=== PATIENT | female | born 1955 | race Caucasian/White ===

== ENCOUNTER 2016-07-08 13:39 | Emergency (ER) | payer SELFPAY ==
[2016-07-08] MEDS ORDERED: PROMETHAZINE HCL INJ 25 MG/ML VIAL ONE (15:05)
[2016-07-08] MEDS ORDERED: SODIUM CHL 0.9% 50ML MIN-BAG+ 50 ML IVPB ONE (15:06)
[2016-07-08] MEDS ORDERED: SUCRALFATE 1 GM/10 ML 1 GM UD ONE (15:11)
[2016-07-08] MEDS ORDERED: OCTREOTIDE ACETATE 100 MCG/ML VIAL ONE (15:36)
[2016-07-08] MEDS ORDERED: OCTREOTIDE ACETATE 100 MCG/ML VIAL IVPB ONE ×2 (15:36)
[2016-07-08] MEDS ORDERED: SODIUM CHLORIDE 0.9% 50ML 50 ML ONE (15:42)
[2016-07-08] MEDS ORDERED: SODIUM CHLORIDE 0.9% 100ML 100 ML IVPB ONE (16:12)
[2016-07-08] MEDS ORDERED: MORPHINE SULFATE INJ 10 MG/ML VIAL ONE (16:27)
[2016-07-09 10:18] VITALS: BP 108/71; TEMP 99.3; O2SAT 98
--- NOTE | 2016-07-12 01:41 | ED.PDOC ---
History of Present Illness - General Chief Complaint: GI Problem Stated Complaint: possible bleeding ulcer Source: patient Exam Limitations: no limitations - History of Present Illness Initial Comments: Patient presents with abdominal discomfort. She says she has an ulcer that she is currently being treated for. Discomfort is mid-umbilical, constant, no exacerbating nor alleviating factors, chronic with multiple previous episodes. Timing/Duration: unsure Severity: mild Improving Factors: nothing Worsening Factors: nothing Associated Symptoms: other - nausea Allergies/Adverse Reactions: Allergies Iodine Adverse Reaction (Verified 05/05/16 03:00) Metoclopramide [From Reglan] Adverse Reaction (Verified 05/05/16 03:00) Ondansetron Adverse Reaction (Verified 05/06/16 08:13) Home Medications: Ambulatory Orders Potassium Chloride Tab [K-Dur] 20 meq PO DAILY #15 tab 09/27/15 Alprazolam [Xanax] 1 mg PO BEDTIME 02/05/16 Omeprazole Magnesium [Prilosec Otc] 20 mg PO DAILY 02/05/16 Hyoscyamine Sulfate [Levsin] 0.125 mg PO Q6HRS #20 tab 04/02/16 Tramadol HCl 50 mg PO Q6HRS #20 tab 04/02/16 Sucralfate Suspension [Carafate Suspension] 1 gm PO Q6HRS #600 ml 04/09/16 Oqbkjeiohkdtf-Vpuk-Wknhwrktnm [Fioricet] 1 ea PO Q8H PRN #21 tab 05/03/16 Promethazine HCl 25 mg PO BID PRN #10 tab 05/05/16 Sucralfate Tab [Carafate Tab] 1 gm PO QID #120 tab 05/05/16 Tramadol HCl 50 mg PO Q8H PRN #20 tab 05/05/16 Review of Systems - Review of Systems Constitutional: States: no symptoms reported EENTM: States: no symptoms reported Respiratory: States: no symptoms reported Cardiology: States: no symptoms reported Gastrointestinal/Abdominal: States: see HPI Genitourinary: States: no symptoms reported Musculoskeletal: States: no symptoms reported Skin: States: no symptoms reported Neurological: States: no symptoms reported Endocrine: States: no symptoms reported Hematologic/Lymphatic: States: no symptoms reported Past Medical History (General) - Patient Medical History Hx Seizures: No Hx Stroke: No Hx Asthma: No Hx of COPD: No Hx Cardiac Disorders: No Hx Congestive Heart Failure: No Hx Pacemaker: No Hx Hypertension: No Hx Thyroid Disease: No Hx Diabetes: No Hx Gastroesophageal Reflux: Yes - gastric ulcer Hx Renal Disease: No Hx Cancer: No Hx of HIV: No Hx Hepatitis C: No Hx MRSA: No Surgical History: other - Vaccination History Hx Tetanus, Diphtheria Vaccination: No Hx Influenza Vaccination: No Hx Pneumococcal Vaccination: No - Social History Hx Tobacco Use: Yes Hx Chewing Tobacco Use: No Hx Alcohol Use: No Hx Substance Use: No Hx Substance Use Treatment: No Hx Depression: Yes Hx Physical Abuse: No Hx Emotional Abuse: No Hx Suspected Abuse: No - Female History Patient : No Family Medical History - Family History Son Family History: No Known Mother Living Status: Cause of : cancer Father Family History: Unknown Living Status: Cause of : cancer Physical Exam - Physical Exam General Appearance: Alert Respiratory: lungs clear Cardiovascular/Chest: regular rate, rhythm Gastrointestinal/Abdominal: normal bowel sounds, non tender, soft Extremity: normal inspection Progress - Progress Progress: 07/12/16 01:42 Hb 6.3. Patient likely to need transfusion and upper endoscopy with surgical repair of ulcer. Transferred to [facility]. Departure - Departure Clinical Impression: ANEMIA, Anemia Disposition: Transfer to Hospital Condition: Fair Departure Forms: ED Discharge - Pt. Copy, Patient Portal Self Enrollment Diet: other - NPO Activity: as per physical therapy Referrals: GIORGI ANGELES [Primary Care Provider] - 1-2 Weeks Home Medications: Ambulatory Orders Potassium Chloride Tab [K-Dur] 20 meq PO DAILY #15 tab 09/27/15 Alprazolam [Xanax] 1 mg PO BEDTIME 02/05/16 Omeprazole Magnesium [Prilosec Otc] 20 mg PO DAILY 02/05/16 Hyoscyamine Sulfate [Levsin] 0.125 mg PO Q6HRS #20 tab 04/02/16 Tramadol HCl 50 mg PO Q6HRS #20 tab 04/02/16 Sucralfate Suspension [Carafate Suspension] 1 gm PO Q6HRS #600 ml 04/09/16 Toaulwxdchlwc-Rovy-Awfoplbjsm [Fioricet] 1 ea PO Q8H PRN #21 tab 05/03/16 Promethazine HCl 25 mg PO BID PRN #10 tab 05/05/16 Sucralfate Tab [Carafate Tab] 1 gm PO QID #120 tab 05/05/16 Tramadol HCl 50 mg PO Q8H PRN #20 tab 05/05/16
== END 2016-07-08 17:05 | disposition short-term general hospital (02) ==
LOC: ER 13:39
DX: D64.9 Anemia, unspecified (principal); Z88.8 Allergy status to other drugs, medicaments and biological substances; Z79.899 Other long term (current) drug therapy; K25.9 Gastric ulcer, unspecified as acute or chronic, without hemorrhage or perforation; Z87.891 Personal history of nicotine dependence
CPT/HCPCS: 36415; 80053; 81001; 82150; 83690; 85025; A4216; J2270; J2354; J2550; J7050

== ENCOUNTER 2016-11-06 14:03 | Emergency (ER) | payer SELFPAY ==
[2016-11-06 14:16] VITALS: TEMP 97
[2016-11-06] MEDS ORDERED: SUCRALFATE 1 GM/10 ML 1 GM UD PO ONE (14:21)
[2016-11-06] MEDS ORDERED: ACETAMINOPHEN W/COD #3 TAB 1 EA TAB PO ONE ×2 (14:21→15:31)
[2016-11-06] MEDS ORDERED: ALUMINUM & MAGNESIUM HYDROXIDE 30 ML UD PO ONE (14:21)
[2016-11-06] MEDS ORDERED: PROMETHAZINE HCL INJ 25 MG/ML VIAL IM ONE (14:21)
--- NOTE | 2016-11-06 14:52 | RAD ---
PROCEDURE: Abdomen Flat Upright Clinical History: abd pain with hx of ulcers Indication: Same as above Comparison: None Technique: Two views of the abdomen and pelvis were done. Findings: There is no gross evidence of free air in the abdomen or the pelvis . The small and large bowel gas pattern does not show any evidence of obstruction, ileus or bowel wall thickening. There is no visualization of radiopaque calculi in the outline of the urinary tract. The visualized lung bases are unremarkable . There is no significant constipation. Few phleboliths are seen in the pelvis Impression: There are no acute or significant findings in the abdomen or the pelvis Location of Interpretation: [id number] Electronically signed by: Cornel Chi MD 11/06/2016 2:51 PM CDT Workstation: [id number]
--- NOTE | 2016-11-06 15:13 | RAD ---
PROCEDURE: Abdomen Lat/Decubitus Clinical History: abd pain with hx of ulcers Indication: Same as above Comparison: 0.0 views of the abdomen done on the same day at 2:35 PM Technique: Left lateral decubitus view of the shoulder joint was done Findings: There is no gross evidence of free air in the abdomen or the pelvis . The small and large bowel gas pattern does not show any evidence of obstruction, ileus or bowel wall thickening. There is no visualization of radiopaque calculi in the outline of the urinary tract. The visualized lung bases are unremarkable . Impression: Unremarkable lateral decubitus view of the abdomen and pelvis Location of Interpretation: [id number] Electronically signed by: Cornel Chi MD 11/06/2016 3:12 PM CDT Workstation: [id number]
[2016-11-06 15:23] VITALS: BP 138/92; O2SAT 95
--- NOTE | 2016-11-06 15:34 | ED.PDOC ---
History of Present Illness - General Chief Complaint: Abdominal Pain Stated Complaint: ulcers are on fire,abdominal pain Time Seen by Provider: 11/06/16 14:05 Source: patient, family Exam Limitations: no limitations - History of Present Illness Initial Comments: the patient is a 61-year-old female presenting to emergency room secondary to exacerbation of her chronic abdominal pain. She has had chronic abdominal pain since a surgery done several years ago and has had a couple of episodes of GI bleeds related to apparently ulcer formation due to the surgery. The patient ran out of her Tylenol 3 for her chronic abdominal pain 3 days ago and the pain worsened immediately after that. She has had some nausea but no vomiting. No blood or melanotic stools. She has had decreased oral intake for the last day or 2 but has tolerated liquids well. She does reportthat the Phenergan suppositories and medications for IBS and seemed to help in the past. She does have a complicated history of drug-seeking as well as legitimate abdominal pain issues. Abdominal exam shows no focal tenderness and no peritoneal signs. No rebound. bowel Sounds are active. Severity: moderate Improving Factors: nothing Worsening Factors: nothing Associated Symptoms: loss of appetite, malaise, nausea/vomiting Allergies/Adverse Reactions: Allergies Iodine Adverse Reaction (Verified 05/05/16 03:00) Metoclopramide [From Reglan] Adverse Reaction (Verified 05/05/16 03:00) Ondansetron Adverse Reaction (Verified 05/06/16 08:13) Home Medications: Ambulatory Orders Alprazolam [Xanax] 2 mg PO BEDTIME 02/05/16 Acetaminophen W/ Codeine [Tylenol W/ CODEINE #3] 1 ea PO Q8H PRN #21 11/06/16 Acetaminophen W/ Codeine [Tylenol w/Codeine 300-30 mg] 1 tab PO PRN 11/06/16 Famotidine 20 mg PO DAILY #15 tab 11/06/16 Hyoscyamine Sulfate [Levsin] 0.125 mg PO Q8H PRN #60 tab 11/06/16 Pantoprazole Tablet [Protonix] 40 mg PO BID 11/06/16 Promethazine HCl [Phenergan] 25 mg MA Q6H PRN #10 sup 11/06/16 Sucralfate Tab [Carafate Tab] 1 gm PO QID #120 tab 11/06/16 Review of Systems - Review of Systems Constitutional: States: malaise EENTM: States: no symptoms reported Respiratory: States: no symptoms reported Cardiology: States: no symptoms reported Gastrointestinal/Abdominal: States: see HPI Genitourinary: States: no symptoms reported Musculoskeletal: States: no symptoms reported Skin: States: no symptoms reported Neurological: States: anxiety, depressed Endocrine: States: no symptoms reported All other Systems: No Change from Baseline Past Medical History (General) - Patient Medical History Hx Seizures: No Hx Stroke: No Hx Asthma: No Hx of COPD: No Hx Cardiac Disorders: No Hx Congestive Heart Failure: No Hx Pacemaker: No Hx Hypertension: No Hx Thyroid Disease: No Hx Diabetes: No Hx Gastroesophageal Reflux: Yes - gastric ulcer Hx Renal Disease: No Hx Cancer: No Hx of HIV: No Hx Hepatitis C: No Hx MRSA: No - Vaccination History Hx Tetanus, Diphtheria Vaccination: No Hx Influenza Vaccination: No Hx Pneumococcal Vaccination: No - Social History Hx Tobacco Use: Yes Hx Chewing Tobacco Use: No Hx Alcohol Use: No Hx Substance Use: No Hx Substance Use Treatment: No Hx Depression: Yes Hx Physical Abuse: No Hx Emotional Abuse: No Hx Suspected Abuse: No - Female History Patient : No Family Medical History - Family History Son Family History: No Known Mother Living Status: Cause of : cancer Father Family History: Unknown Living Status: Cause of : cancer Physical Exam - Physical Exam General Appearance: Alert, No apparent distress Eye Exam: bilateral normal Ears, Nose, Throat: hearing grossly normal, normal ENT inspection, normal pharynx Neck: non-tender, full range of motion, supple Respiratory: chest non-tender, lungs clear, normal breath sounds, no respiratory distress, no accessory muscle use Cardiovascular/Chest: normal peripheral pulses, regular rate, rhythm, no edema Peripheral Pulses: radial,right: 2+, radial,left: 2+, dorsalis pedis,right: 2+, dorsalis pedis,left: 2+, posterior tibialis,right: 2+, posterior tibialis,left: 2+ Gastrointestinal/Abdominal: normal bowel sounds, non tender, soft Rectal Exam: deferred Back Exam: normal inspection, no CVA tenderness, no vertebral tenderness Extremity: normal range of motion, non-tender, normal inspection, no pedal edema , normal capillary refill 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 No overt evidence of GI bleed at this time. Hemoglobin and hematocrit are reassuring though she does appear to have some iron deficiency that needs to be addressed with her primary care doctor in the near future. the patient can continue her Protonix and will be placed back on Carafate for the next month along with Pepcid for the next 2 weeks. She will additionally be written for Phenergan suppositories for as needed use and a short prescription of Tylenol No. 3. She needs to get back in with her primary care doctor for longer term management of her intestinal issues and chronic pain problems. Additionally she will have a short course of hyoscyamine as a trial as she has reported that this has helped in the past. ER warnings were given. - Results/Orders Results/Orders: Laboratory Results - last 24 hr 11/06/16 11/06/16 11/06/16 14:35 14:35 14:35 WBC 4.9 RBC 4.74 Hgb 11.0 L Hct 35.8 L MCV 75.5 L MCH 23.2 L MCHC 30.8 L RDW 18.5 H Plt Count 272 MPV 7.4 Absolute Neuts (auto) 3.20 Absolute Lymphs (auto) 1.00 Absolute Monos (auto) 0.60 Absolute Eos (auto) 0.10 Absolute Basos (auto) 0.00 Neutrophils % 65.5 Lymphocytes % 19.5 L Monocytes % 12.4 H Eosinophils % 1.7 Basophils % 0.9 PT 11.4 INR 1.010 PTT (SP) 33.3 Sodium 145 Potassium 4.1 Chloride 110 Carbon Dioxide 24 Anion Gap 15.1 BUN 10 Creatinine 0.78 BUN/Creatinine Ratio 12.8 Random Glucose 84 Serum Osmolality 286.9 Calcium 9.6 Total Bilirubin 0.2 AST 21 ALT 13 Alkaline Phosphatase 88 Serum Total Protein 8.6 H Albumin 4.2 Globulin 4.4 H Albumin/Globulin Ratio 1.0 L upright, flat and left lateral decubitus x-rays of the abdomen showed no evidence of perforation or obstruction. Departure - Departure Clinical Impression: Chronic generalized abdominal pain, Gastritis Disposition: Discharge to Home or Self Care Condition: Fair Departure Forms: ED Discharge - Pt. Copy, Patient Portal Self Enrollment Instructions: DI for Abdominal Pain-Adult Diet: bland diet Activity: increase activity as tolerated Referrals: GIORGI ANGELES [Primary Care Provider] - 1-2 Weeks Prescriptions: Acetaminophen W/ Codeine [Tylenol W/ CODEINE #3] 1 ea PO Q8H PRN #21 PRN Reason: Pain -- Moderate To Severe Famotidine 20 mg PO DAILY #15 tab Hyoscyamine Sulfate [Levsin] 0.125 mg PO Q8H PRN #60 tab PRN Reason: Moderate Pain Promethazine HCl [Phenergan] 25 mg MA Q6H PRN #10 sup PRN Reason: Nausea/Vomiting Sucralfate Tab [Carafate Tab] 1 gm PO QID #120 tab Home Medications: Ambulatory Orders Alprazolam [Xanax] 2 mg PO BEDTIME 02/05/16 Acetaminophen W/ Codeine [Tylenol W/ CODEINE #3] 1 ea PO Q8H PRN #21 11/06/16 Acetaminophen W/ Codeine [Tylenol w/Codeine 300-30 mg] 1 tab PO PRN 11/06/16 Famotidine 20 mg PO DAILY #15 tab 11/06/16 Hyoscyamine Sulfate [Levsin] 0.125 mg PO Q8H PRN #60 tab 11/06/16 Pantoprazole Tablet [Protonix] 40 mg PO BID 11/06/16 Promethazine HCl [Phenergan] 25 mg MA Q6H PRN #10 sup 11/06/16 Sucralfate Tab [Carafate Tab] 1 gm PO QID #120 tab 11/06/16 Additional Instructions: the patient is a 61-year-old female with chronic abdominal pain presenting due to a flare. No overt evidence of GI bleed at this time. Hemoglobin and hematocrit are reassuring though she does appear to have some iron deficiency that needs to be addressed with her primary care doctor in the near future. the patient can continue her Protonix and will be placed back on Carafate for the next month along with Pepcid for the next 2 weeks. She will additionally be written for Phenergan suppositories for as needed use and a short prescription of Tylenol No. 3. She needs to get back in with her primary care doctor for longer term management of her intestinal issues and chronic pain problems. Additionally she will have a short course of hyoscyamine as a trial as she has reported that this has helped in the past. ER warnings were given.
== END 2016-11-06 15:49 | disposition home or self-care (01) ==
LOC: ER 14:03
DX: K29.70 Gastritis, unspecified, without bleeding (principal); G89.29 Other chronic pain; R10.84 Generalized abdominal pain; Z87.891 Personal history of nicotine dependence; F32.9 Major depressive disorder, single episode, unspecified; Z88.8 Allergy status to other drugs, medicaments and biological substances; K25.9 Gastric ulcer, unspecified as acute or chronic, without hemorrhage or perforation
CPT/HCPCS: 36415; 74000; 74010; 80053; 85025; 85610; 85730; J2550

== ENCOUNTER 2017-01-20 14:50 | Emergency (ER) | payer SELFPAY ==
[2017-01-20 15:11] VITALS: BP 160/83; TEMP 98.9; O2SAT 97
--- NOTE | 2017-01-20 15:32 | RAD ---
EXAM DESCRIPTION: Ankle,Left 2 Views CLINICAL HISTORY: fall COMPARISON: None. TECHNIQUE: 2 views left FINDINGS: I see no bone joint or soft tissue abnormality. IMPRESSION: Normal left ankle. Electronically signed by: Jarett Roper MD 01/20/2017 3:30 PM CDT
--- NOTE | 2017-01-20 15:33 | RAD ---
EXAM DESCRIPTION: Pelvis CLINICAL HISTORY: fall COMPARISON: None. TECHNIQUE: AP pelvis FINDINGS: Phleboliths are observed in the pelvis. No pelvic fracturing is detected. No masses are observed. IMPRESSION: Normal pelvis. Electronically signed by: Jarett Roper MD 01/20/2017 3:32 PM CDT
--- NOTE | 2017-01-20 15:33 | RAD ---
EXAM DESCRIPTION: Hip,Left 2 Views CLINICAL HISTORY: fall COMPARISON: None. TECHNIQUE: 2 views left FINDINGS: I see no bone joint or soft tissue normality. IMPRESSION: Normal left hip. Electronically signed by: Jarett Roper MD 01/20/2017 3:31 PM CDT
--- NOTE | 2017-01-20 15:37 | RAD ---
EXAM DESCRIPTION: Sacrum CLINICAL HISTORY: fall COMPARISON: None. TECHNIQUE: 2 views FINDINGS: The sacrum and coccyx as imaged are intact. No fracturing is detected. IMPRESSION: Normal sacrum and coccyx. Electronically signed by: Jarett Roper MD 01/20/2017 3:35 PM CDT
--- NOTE | 2017-01-20 15:38 | RAD ---
EXAM DESCRIPTION: Tibia/Fibula,Left CLINICAL HISTORY: fall COMPARISON: None. TECHNIQUE: AP and lateral left FINDINGS: I see no bone joint or soft tissue abnormality. IMPRESSION: Normal left tibia and fibula. Electronically signed by: Jarett Roper MD 01/20/2017 3:37 PM CDT
--- NOTE | 2017-01-20 15:46 | ED.PDOC ---
History of Present Illness - General Chief Complaint: Lower Extremity Injury Stated Complaint: Left lower extremity discomfort Time Seen by Provider: 01/20/17 14:56 Source: patient Exam Limitations: no limitations - History of Present Illness Initial Comments: the patient is a 61-year-old female presenting to the emergency room after having fallen while working with her horse. She fell from ground level. She has some pain to her left lateral ankle and left lateral knee. She landed on her left buttock. She does appear to be neurovascularly at her baseline. No obvious bruising or deformity is seen. Capillary refills less than 2 seconds. She is able to move the extremity. She does have some tenderness to palpation. No other lacerations and no obvious injuries otherwise. Timing/Duration: momentarily Severity: moderate Improving Factors: nothing Worsening Factors: movement Associated Symptoms: denies symptoms Allergies/Adverse Reactions: Allergies Iodine Adverse Reaction (Verified 01/20/17 15:11) Metoclopramide [From Reglan] Adverse Reaction (Verified 01/20/17 15:11) Ondansetron Adverse Reaction (Verified 01/20/17 15:11) Home Medications: Ambulatory Orders Alprazolam [Xanax] 2 mg PO BEDTIME 02/05/16 Acetaminophen W/ Codeine [Tylenol W/ CODEINE #3] 1 ea PO Q8H PRN #21 11/06/16 Acetaminophen W/ Codeine [Tylenol w/Codeine 300-30 mg] 1 tab PO PRN 11/06/16 Famotidine 20 mg PO DAILY #15 tab 11/06/16 Hyoscyamine Sulfate [Levsin] 0.125 mg PO Q8H PRN #60 tab 11/06/16 Pantoprazole Tablet [Protonix] 40 mg PO BID 11/06/16 Promethazine HCl [Phenergan] 25 mg [place] Q6H PRN #10 sup 11/06/16 Sucralfate Tab [Carafate Tab] 1 gm PO QID #120 tab 11/06/16 Review of Systems - Review of Systems Constitutional: States: no symptoms reported EENTM: States: no symptoms reported Respiratory: States: no symptoms reported Cardiology: States: no symptoms reported Gastrointestinal/Abdominal: States: no symptoms reported Genitourinary: States: no symptoms reported Musculoskeletal: States: see HPI Skin: States: no symptoms reported Neurological: States: no symptoms reported Endocrine: States: no symptoms reported All other Systems: No Change from Baseline - otherwise Past Medical History (General) - Patient Medical History Hx Seizures: No Hx Stroke: No Hx Asthma: No Hx of COPD: No Hx Cardiac Disorders: No Hx Congestive Heart Failure: No Hx Pacemaker: No Hx Hypertension: No Hx Thyroid Disease: No Hx Diabetes: No Hx Gastroesophageal Reflux: Yes - gastric ulcer Hx Renal Disease: No Hx Cancer: No Hx of HIV: No Hx Hepatitis C: No Hx MRSA: No - Vaccination History Hx Tetanus, Diphtheria Vaccination: No Hx Influenza Vaccination: No Hx Pneumococcal Vaccination: No - Social History Hx Tobacco Use: Yes Hx Chewing Tobacco Use: No Hx Alcohol Use: No Hx Substance Use: No Hx Substance Use Treatment: No Hx Depression: Yes Hx Physical Abuse: No Hx Emotional Abuse: No Hx Suspected Abuse: No - Female History Patient is a Female of Child Bearing Age (10 -59 yrs old): No Patient : No Family Medical History - Family History Son Family History: No Known Mother Living Status: Cause of : cancer Father Family History: Unknown Living Status: Cause of : cancer Physical Exam - Physical Exam General Appearance: Alert, Comfortable, No apparent distress Eye Exam: bilateral normal Ears, Nose, Throat: hearing grossly normal, normal ENT inspection, normal pharynx Neck: non-tender, supple Respiratory: normal breath sounds, no respiratory distress, no accessory muscle use Cardiovascular/Chest: normal peripheral pulses, no edema Peripheral Pulses: radial,right: 2+, radial,left: 2+, dorsalis pedis,right: 2+, dorsalis pedis,left: 2+ Gastrointestinal/Abdominal: non tender, soft Rectal Exam: deferred Back Exam: no vertebral tenderness Extremity: normal range of motion, no pedal edema, no calf tenderness, normal capillary refill, other - see history of present illness 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 X-rays of the sacrum, pelvis, hip, tib- fib and ankle on the left show no evidence of fracture or dislocation. She does need ambulate carefully to prevent future falls. She can continue her current medications. ER warnings were given. She should follow-up with her primary care doctor next week. Departure - Departure Clinical Impression: Sprain of left ankle or foot, Fall from standing Disposition: Transfer to [facility] Departure Forms: ED Discharge - Pt. Copy, Patient Portal Self Enrollment Instructions: Ankle Sprain Diet: regular diet Activity: increase activity as tolerated Referrals: GIORGI ANGELES [Primary Care Provider] - 1-2 Weeks Home Medications: Ambulatory Orders Alprazolam [Xanax] 2 mg PO BEDTIME 02/05/16 Acetaminophen W/ Codeine [Tylenol W/ CODEINE #3] 1 ea PO Q8H PRN #21 11/06/16 Acetaminophen W/ Codeine [Tylenol w/Codeine 300-30 mg] 1 tab PO PRN 11/06/16 Famotidine 20 mg PO DAILY #15 tab 11/06/16 Hyoscyamine Sulfate [Levsin] 0.125 mg PO Q8H PRN #60 tab 11/06/16 Pantoprazole Tablet [Protonix] 40 mg PO BID 11/06/16 Promethazine HCl [Phenergan] 25 mg [place] Q6H PRN #10 sup 11/06/16 Sucralfate Tab [Carafate Tab] 1 gm PO QID #120 tab 11/06/16 Additional Instructions: the patient is a 61-year-old female presenting with what appears to be soft tissue injury to her left lower extremity after having fallen from standing while working with her horse. X-rays of the sacrum, pelvis, hip, tib- fib and ankle on the left show no evidence of fracture or dislocation. She does need ambulate carefully to prevent future falls. She can continue her current medications. ER warnings were given. She should follow-up with her primary care doctor next week.
== END 2017-01-20 16:00 | disposition home or self-care (01) ==
LOC: ER 14:50
DX: S93.402A Sprain of unspecified ligament of left ankle, initial encounter (principal); Z88.8 Allergy status to other drugs, medicaments and biological substances; Z88.6 Allergy status to analgesic agent; Z87.891 Personal history of nicotine dependence; W19.XXXA Unspecified fall, initial encounter; Y92.9 Unspecified place or not applicable

== ENCOUNTER 2017-01-28 05:14 | Emergency (ER) | payer SELFPAY ==
--- NOTE | 2017-01-28 05:36 | ED.PDOC ---
History of Present Illness - General Chief Complaint: Lower Extremity Injury Stated Complaint: knee pain left Time Seen by Provider: 01/28/17 05:34 Source: patient Exam Limitations: no limitations - History of Present Illness Initial Comments: Stiven Estrada 61 y/o female [place] stepping on the lead rope of her horse then suddenly horse tried to move away from her lost her balance fell same level twisting her left knee and ankle left then fell landing on her buttocks.Initially seen here at ER after incident radiologic studies injured area did not show acute fractures.Made appointment with primary md and ct left knee ordered by orthopedist Dr. Garcia on 04/2017. Occurred: other - 2 weeks ago Pain - Lower Extremity: moderate: Left Knee Method of Injury: fell, other - see hpi Improving Factors: rest Worsening Factors: movement Allergies/Adverse Reactions: Allergies Iodine Adverse Reaction (Verified 01/28/17 05:43) Metoclopramide [From Reglan] Adverse Reaction (Verified 01/28/17 05:43) Ondansetron Adverse Reaction (Verified 01/28/17 05:43) Home Medications: Ambulatory Orders Alprazolam [Xanax] 2 mg PO BEDTIME 02/05/16 Acetaminophen W/ Codeine [Tylenol W/ CODEINE #3] 1 ea PO Q8H PRN #21 11/06/16 Acetaminophen W/ Codeine [Tylenol w/Codeine 300-30 mg] 1 tab PO PRN 11/06/16 Famotidine 20 mg PO DAILY #15 tab 11/06/16 Hyoscyamine Sulfate [Levsin] 0.125 mg PO Q8H PRN #60 tab 11/06/16 Pantoprazole Tablet [Protonix] 40 mg PO BID 11/06/16 Promethazine HCl [Phenergan] 25 mg MS Q6H PRN #10 sup 11/06/16 Sucralfate Tab [Carafate Tab] 1 gm PO QID #120 tab 11/06/16 Acetamin W/Cod #3 Tab [Tylenol w/CODEINE #3] 1 ea PO Q6HR #10 tab 01/28/17 Review of Systems - Review of Systems Constitutional: States: no symptoms reported EENTM: States: no symptoms reported Respiratory: States: no symptoms reported Cardiology: States: no symptoms reported Gastrointestinal/Abdominal: States: no symptoms reported Musculoskeletal: States: see HPI, joint pain - left knee Past Medical History (General) - Patient Medical History Hx Seizures: No Hx Stroke: No Hx Asthma: No Hx of COPD: No Hx Cardiac Disorders: No Hx Congestive Heart Failure: No Hx Pacemaker: No Hx Hypertension: No Hx Thyroid Disease: No Hx Diabetes: No Hx Gastroesophageal Reflux: Yes - gastric ulcer Hx Renal Disease: No Hx Cancer: No Hx of HIV: No Hx Hepatitis C: No Hx MRSA: No Hx Other PMH: Yes Surgical History: other - gastric surgery,left shoulder - Vaccination History Hx Tetanus, Diphtheria Vaccination: No Hx Influenza Vaccination: No Hx Pneumococcal Vaccination: No - Social History Hx Tobacco Use: Yes Hx Chewing Tobacco Use: No Hx Alcohol Use: No Hx Substance Use: No Hx Substance Use Treatment: No Hx Depression: Yes Hx Physical Abuse: No Hx Emotional Abuse: No Hx Suspected Abuse: No - Female History Patient : No Family Medical History - Family History Son Family History: No Known Hx Family Cancer: Yes - parents Mother Living Status: Cause of : cancer Father Family History: Unknown Living Status: Cause of : cancer Physical Exam - Physical Exam General Appearance: Alert, No apparent distress Eyes, Ears, Nose, Throat: PERRL/EOMI, normal ENT inspection Neck: supple Cardiovascular/Respiratory: regular rate, rhythm, normal peripheral pulses Gastrointestinal/Abdominal: non-tender, no organomegaly, other - healed surgical scars Back: normal inspection, no vertebral tenderness Leg: no evidence of injury Knee: limited ROM - internal rotation,negative Lachmans test Progress - Progress Progress: 01/28/17 05:56 Vital Signs - 8 hr 01/28/17 05:37 Temperature 97.8 F Pulse Rate [ 76 left] Respiratory 20 Rate Blood Pressure 106/63 [left] O2 Sat by Pulse 99 Oximetry Departure - Departure Clinical Impression: Sprain of left knee/leg Qualifiers: Encounter type: initial encounter Qualified Code(s): S83.92XA - Sprain of unspecified site of left knee, initial encounter Time of Disposition: 05:58 Disposition: Discharge to Home or Self Care Condition: Fair Instructions: DI for Knee Pain, DI for Knee Sprain Activity: ambulate only with walker Referrals: GIORGI ANGELES W [Primary Care Provider] - 1-2 Weeks Prescriptions: Acetamin W/Cod #3 Tab [Tylenol w/CODEINE #3] 1 ea PO Q6HR #10 tab Home Medications: Ambulatory Orders Alprazolam [Xanax] 2 mg PO BEDTIME 02/05/16 Acetaminophen W/ Codeine [Tylenol W/ CODEINE #3] 1 ea PO Q8H PRN #21 11/06/16 Acetaminophen W/ Codeine [Tylenol w/Codeine 300-30 mg] 1 tab PO PRN 11/06/16 Famotidine 20 mg PO DAILY #15 tab 11/06/16 Hyoscyamine Sulfate [Levsin] 0.125 mg PO Q8H PRN #60 tab 11/06/16 Pantoprazole Tablet [Protonix] 40 mg PO BID 11/06/16 Promethazine HCl [Phenergan] 25 mg MS Q6H PRN #10 sup 11/06/16 Sucralfate Tab [Carafate Tab] 1 gm PO QID #120 tab 11/06/16 Acetamin W/Cod #3 Tab [Tylenol w/CODEINE #3] 1 ea PO Q6HR #10 tab 01/28/17 Additional Instructions: KEEP APPOINTMENT WITH DR. GARCIA-ORTHOPEDIST;WEAR KNEE IMMOBILIZER DURING WAKING HOURS ONLY THEN OFF BEDTIME
[2017-01-28 05:43] VITALS: BP 106/63; O2SAT 99
[2017-01-28] MEDS ORDERED: ORPHENADRINE CITRATE 30 MG/ML AMP IM ONE (05:48)
[2017-01-28] MEDS ORDERED: fentaNYL CITRATE INJ 50 MCG/ML AMP IV ONE (05:48)
[2017-01-28] MEDS ORDERED: HYDROcodone 5MG/APAP 325MG 1 EA TAB PO ONE (05:48)
[2017-01-28] MEDS ORDERED: MORPHINE SULFATE INJ 10 MG/ML VIAL IM ONE (05:52)
[2017-01-28] MEDS ORDERED: HYDROCOD/APAP 5/325 (ER DISP) #3 TAB PO ONE (05:53)
[2017-01-28 06:18] VITALS: TEMP 97
== END 2017-01-28 06:10 | disposition home or self-care (01) ==
LOC: ER 05:14
DX: S83.92XA Sprain of unspecified site of left knee, initial encounter (principal); Z88.8 Allergy status to other drugs, medicaments and biological substances; Z98.84 Bariatric surgery status; Z79.899 Other long term (current) drug therapy; Z87.891 Personal history of nicotine dependence; W01.0XXA Fall on same level from slipping, tripping and stumbling without subsequent striking against object, initial encounter; Y92.79 Other farm location as the place of occurrence of the external cause
CPT/HCPCS: J2270; J2360

== ENCOUNTER 2017-02-01 06:58 | Emergency (ER) | payer SELFPAY ==
[2017-02-01 07:12] VITALS: BP 117/79; TEMP 99.1; O2SAT 92
--- NOTE | 2017-02-01 07:18 | ED.PDOC ---
History of Present Illness - General Chief Complaint: Lower Extremity Injury Stated Complaint: left leg pain Time Seen by Provider: 02/01/17 07:17 Source: patient Exam Limitations: no limitations - History of Present Illness Initial Comments: Stiven Estrada 61 y/o female seen again today due continued left leg pain after tripping on a horse rope twisted left leg on on their farm.Has appointment with Dr. Garcia orthopedist and knee Ct was scheduled today. Occurred: other - Pain - Lower Extremity: moderate: Left Knee Method of Injury: twisted Improving Factors: rest Worsening Factors: movement Allergies/Adverse Reactions: Allergies NSAIDs Allergy (Verified 02/01/17 07:13) Iodine Adverse Reaction (Verified 01/28/17 05:43) Metoclopramide [From Reglan] Adverse Reaction (Verified 01/28/17 05:43) Ondansetron Adverse Reaction (Verified 01/28/17 05:43) Home Medications: Ambulatory Orders Alprazolam [Xanax] 2 mg PO BEDTIME 02/05/16 Acetaminophen W/ Codeine [Tylenol W/ CODEINE #3] 1 ea PO Q8H PRN #21 11/06/16 Acetaminophen W/ Codeine [Tylenol w/Codeine 300-30 mg] 1 tab PO PRN 11/06/16 Famotidine 20 mg PO DAILY #15 tab 11/06/16 Hyoscyamine Sulfate [Levsin] 0.125 mg PO Q8H PRN #60 tab 11/06/16 Pantoprazole Tablet [Protonix] 40 mg PO BID 11/06/16 Promethazine HCl [Phenergan] 25 mg MA Q6H PRN #10 sup 11/06/16 Sucralfate Tab [Carafate Tab] 1 gm PO QID #120 tab 11/06/16 Acetamin W/Cod #3 Tab [Tylenol w/CODEINE #3] 1 ea PO Q6HR #10 tab 01/28/17 Methocarbamol [Robaxin] 750 mg PO BID #7 tab 02/01/17 Tramadol HCl 50 mg PO Q4HR PRN #7 tab 02/01/17 Review of Systems - Review of Systems Constitutional: States: no symptoms reported EENTM: States: no symptoms reported Respiratory: States: no symptoms reported Cardiology: States: no symptoms reported Gastrointestinal/Abdominal: States: no symptoms reported Genitourinary: States: no symptoms reported Musculoskeletal: States: see HPI, joint pain - left knee Skin: States: no symptoms reported Neurological: States: no symptoms reported Endocrine: States: no symptoms reported Past Medical History (General) - Patient Medical History Hx Seizures: No Hx Stroke: No Hx Asthma: No Hx of COPD: No Hx Cardiac Disorders: No Hx Congestive Heart Failure: No Hx Pacemaker: No Hx Hypertension: No Hx Thyroid Disease: No Hx Diabetes: No Hx Gastroesophageal Reflux: Yes - gastric ulcer Hx Renal Disease: No Hx Cancer: No Hx of HIV: No Hx Hepatitis C: No Hx MRSA: No Surgical History: other - shoulder ,hysterectomy - Vaccination History Hx Tetanus, Diphtheria Vaccination: No Hx Influenza Vaccination: No Hx Pneumococcal Vaccination: No - Social History Hx Tobacco Use: Yes Hx Chewing Tobacco Use: No Hx Alcohol Use: No Hx Substance Use: No Hx Substance Use Treatment: No Hx Depression: Yes Hx Physical Abuse: No Hx Emotional Abuse: No Hx Suspected Abuse: No - Female History Patient : No Family Medical History - Family History Son Family History: No Known Hx Family Cancer: Yes - parents Mother Living Status: Cause of : cancer Father Family History: Unknown Living Status: Cause of : cancer Physical Exam - Physical Exam General Appearance: Alert, No apparent distress Eyes, Ears, Nose, Throat: PERRL/EOMI, pharynx normal Neck: non-tender, limited range of motion Cardiovascular/Respiratory: normal peripheral pulses, no respiratory distress, extra beats Gastrointestinal/Abdominal: no organomegaly Back: normal inspection, no vertebral tenderness Thigh/Hip: no evidence of injury Leg: no evidence of injury Knee: ecchymosis - posterior leg left, pain - knee joint left Ankle: no evidence of injury Foot: non-tender Neuro/Tendon: no evidence tendon injury Mental Status: oriented x 3 Progress - Progress Progress: 02/01/17 07:26 Vital Signs - 8 hr 02/01/17 07:10 Temperature 99.1 F Pulse Rate [ 64 Left Brachial] Respiratory 20 Rate Blood Pressure 117/79 [Left Arm] O2 Sat by Pulse 92 L Oximetry Departure - Departure Clinical Impression: Strain of left knee and leg Qualifiers: Encounter type: subsequent encounter Qualified Code(s): S86.912D - Strain of unspecified muscle(s) and tendon(s) at lower leg level, left leg, subsequent encounter Time of Disposition: 07:33 Disposition: Discharge to Home or Self Care Departure Forms: ED Discharge - Pt. Copy, Patient Portal Self Enrollment Instructions: DI for Knee Pain, DI for Leg Pain Referrals: GIORGI ANGELES [Primary Care Provider] - 1-2 Weeks Prescriptions: Tramadol HCl 50 mg PO Q4HR PRN #7 tab PRN Reason: Pain Methocarbamol [Robaxin] 750 mg PO BID #7 tab Home Medications: Ambulatory Orders Alprazolam [Xanax] 2 mg PO BEDTIME 02/05/16 Acetaminophen W/ Codeine [Tylenol W/ CODEINE #3] 1 ea PO Q8H PRN #21 11/06/16 Acetaminophen W/ Codeine [Tylenol w/Codeine 300-30 mg] 1 tab PO PRN 11/06/16 Famotidine 20 mg PO DAILY #15 tab 11/06/16 Hyoscyamine Sulfate [Levsin] 0.125 mg PO Q8H PRN #60 tab 11/06/16 Pantoprazole Tablet [Protonix] 40 mg PO BID 11/06/16 Promethazine HCl [Phenergan] 25 mg MA Q6H PRN #10 sup 11/06/16 Sucralfate Tab [Carafate Tab] 1 gm PO QID #120 tab 11/06/16 Acetamin W/Cod #3 Tab [Tylenol w/CODEINE #3] 1 ea PO Q6HR #10 tab 01/28/17 Methocarbamol [Robaxin] 750 mg PO BID #7 tab 02/01/17 Tramadol HCl 50 mg PO Q4HR PRN #7 tab 02/01/17 Additional Instructions: Keep appointment with Dr. Garcia orthopedist
[2017-02-01] MEDS ORDERED: ORPHENADRINE CITRATE 30 MG/ML AMP IM ONE (07:26)
[2017-02-01] MEDS ORDERED: PROMETHAZINE HCL INJ 25 MG/ML VIAL IM ONE (07:26)
[2017-02-01] MEDS ORDERED: HYDROcodone 10MG/APAP 325MG 1 EA TAB PO ONE (07:26)
== END 2017-02-01 07:57 | disposition home or self-care (01) ==
LOC: ER 06:58
DX: S86.912A Strain of unspecified muscle(s) and tendon(s) at lower leg level, left leg, initial encounter (principal); Z79.899 Other long term (current) drug therapy; Z88.6 Allergy status to analgesic agent; Z88.8 Allergy status to other drugs, medicaments and biological substances; Z87.891 Personal history of nicotine dependence; X50.1XXA Overexertion from prolonged static or awkward postures, initial encounter; Y92.79 Other farm location as the place of occurrence of the external cause
CPT/HCPCS: J2360; J2550

== ENCOUNTER 2017-08-21 21:47 | Emergency (ER) | payer SELFPAY ==
--- NOTE | 2017-08-21 21:59 | ED.PDOC ---
History of Present Illness - General Chief Complaint: Abdominal Pain Stated Complaint: abdominal pain Time Seen by Provider: 08/21/17 21:55 Information Source: patient Exam Limitations: no limitations - History of Present Illness Initial Comments: Monica Estrada 62 y/o female brought by with intermittent burning left upper quadrant pain for the last 3 days stating lasting for about 1-2 hours and eased up but not totally going away.[place] nauseated but no vomiting ,had 3 episodes of watery diarrhea today stating pain not getting better.She was able to eat in small amounts since she does not have the appetite and this afternoon was given barbecue ribs by unable to eat.Had history of bleeding gastric ulcer in the past and underwent gastrorrhaphy and vagotomy done in [facility].She used to take protonix bid but switch to Ranitidine (otc).She had previous egd 2x done in [facility] and for bleeding ulcer. Abdominal Pain Onset Location: LUQ Pain Radiation: no radiation Quality: intermittent, sharpness Timing/Duration: other - 72 hours Worsening Factors: eating Associated Symptoms: other - see hpi Review of Systems - Review of Systems Constitutional: States: no symptoms reported EENTM: States: no symptoms reported Respiratory: States: no symptoms reported Cardiology: States: no symptoms reported Gastrointestinal/Abdominal: States: see HPI Hematologic/Lymphatic: States: anemia All other Systems: Reviewed and Negative, No Change from Baseline Past Medical History (General) - Patient Medical History Hx Seizures: No Hx Stroke: No Hx Asthma: No Hx of COPD: No Hx Cardiac Disorders: No Hx Congestive Heart Failure: No Hx Pacemaker: No Hx Hypertension: No Hx Thyroid Disease: No Hx Diabetes: No Hx Gastroesophageal Reflux: Yes - gastric ulcer Hx Renal Disease: No Hx Cancer: No Hx of HIV: No Hx Hepatitis C: No Hx MRSA: No Surgical History: other - gastric and shoulder surgery - Vaccination History Hx Tetanus, Diphtheria Vaccination: No Hx Influenza Vaccination: No Hx Pneumococcal Vaccination: No - Social History Hx Tobacco Use: Yes Hx Chewing Tobacco Use: No Hx Alcohol Use: No Hx Substance Use: No Hx Substance Use Treatment: No Hx Depression: Yes Hx Physical Abuse: No Hx Emotional Abuse: No Hx Suspected Abuse: No - Activities of Daily Living Patient Lives Alone: No Grooming Ability: Independent Eating (Feeding) Ability: Independent Toileting Ability: Independent - Female History Patient : No Family Medical History - Family History Son Family History: No Known Hx Family Cancer: Yes - parents(mom-gastric;dad-unknownt type) Mother Living Status: Cause of : cancer Father Family History: Unknown Living Status: Cause of : cancer Physical Exam - Physical Exam General Appearance: Alert, Anxious, No apparent distress Eyes, Ears, Nose, Throat Exam: normal ENT inspection, pharynx normal Neck: non-tender, supple Respiratory: chest non-tender, lungs clear, normal breath sounds Cardiovascular/Chest: normal peripheral pulses, regular rate, rhythm, no murmur Peripheral Pulses: No deficit Gastrointestinal/Abdominal: normal bowel sounds, soft, tenderness - LUQ;no peritoneal signs Rectal Exam: normal rectal tone, heme positive stool Back Exam: no CVA tenderness, no vertebral tenderness Extremity: no pedal edema, no calf tenderness Neurologic: alert, oriented x 3 Skin Exam: normal color, warm/dry Progress - Progress Progress: 08/21/17 22:49 Vital Signs - 8 hr 08/21/17 21:56 Temperature 100.1 F H Pulse Rate [ 75 left] Respiratory 18 Rate Blood Pressure 142/94 [left] O2 Sat by Pulse 98 Oximetry - Results/Orders Results/Orders: 08/21/17 22:00 IV Care:Saline Lock per Protoc QSHIFT 08/21/17 23:00 URINALYSIS Stat Laboratory Results - last 24 hr 08/21/17 08/21/17 08/21/17 22:50 22:50 22:50 WBC 1.9 L* RBC 4.09 L Hgb 10.4 L Hct 32.8 L MCV 80.1 L MCH 25.4 L MCHC 31.8 L RDW 17.8 H Plt Count 161 MPV 7.7 Absolute Neuts (auto) Not Reportable Absolute Lymphs (auto) Not Reportable Absolute Monos (auto) Not Reportable Absolute Eos (auto) Not Reportable Neutrophils % Not Reportable Neutrophils % (Manual) Lymphocytes % Not Reportable Lymphocytes % (Manual) Monocytes % Not Reportable Monocytes % (Manual) Eosinophils % Not Reportable Basophils % Not Reportable Hypochromia Platelet Estimate Anisocytosis Ovalocytes PT 11.5 INR 0.990 PTT (SP) 30.9 Sodium 139 Potassium 3.7 Chloride 110 Carbon Dioxide 22 Anion Gap 10.7 L BUN 14 Creatinine 0.69 BUN/Creatinine Ratio 20.3 H Random Glucose 68 L Serum Osmolality 276.3 Lactic Acid 1.8 Calcium 9.0 Magnesium 1.8 Total Bilirubin 0.4 Direct Bilirubin < 0.1 Indirect Bilirubin 0.3 AST 27 ALT 14 Alkaline Phosphatase 81 Creatine Kinase 43 CK-MB (CK-2) 1.8 CK-MB (CK-2) % Not Reportable Troponin I < 0.02 Serum Total Protein 7.4 Albumin 4.1 Lipase 19 L Stool Occult Blood Urine Opiates Screen Urine Barbiturates Ur Phencyclidine Scrn U Amphetamin/Meth Scrn U Benzodiazepines Scrn U Cocaine Metab Screen U Cannabinoids Screen Ethyl Alcohol < 5.40 08/21/17 08/21/17 08/21/17 22:50 23:08 23:08 WBC RBC Hgb Hct MCV MCH MCHC RDW Plt Count MPV Absolute Neuts (auto) Absolute Lymphs (auto) Absolute Monos (auto) Absolute Eos (auto) Neutrophils % Neutrophils % (Manual) 85.0 Lymphocytes % Lymphocytes % (Manual) 14.0 Monocytes % Monocytes % (Manual) 1.0 Eosinophils % Basophils % Hypochromia 1+ Platelet Estimate Normal Anisocytosis 1+ Ovalocytes 1+ PT INR PTT (SP) Sodium Potassium Chloride Carbon Dioxide Anion Gap BUN Creatinine BUN/Creatinine Ratio Random Glucose Serum Osmolality Lactic Acid Calcium Magnesium Total Bilirubin Direct Bilirubin Indirect Bilirubin AST ALT Alkaline Phosphatase Creatine Kinase CK-MB (CK-2) CK-MB (CK-2) % Troponin I Serum Total Protein Albumin Lipase Stool Occult Blood Positive Urine Opiates Screen Positive H Urine Barbiturates Negative Ur Phencyclidine Scrn Negative U Amphetamin/Meth Scrn Negative U Benzodiazepines Scrn Positive H U Cocaine Metab Screen Negative U Cannabinoids Screen Negative Ethyl Alcohol - EKG/XRAY/CT XRAY: abdomen - no acute abnormalities;air distended stomach or transverse colon Departure - Departure Clinical Impression: Hypochromic microcytic anemia Abdominal pain Qualifiers: Abdominal location: left upper quadrant Qualified Code(s): R10.12 - Left upper quadrant pain Neutropenia Qualifiers: Neutropenia type: unspecified Qualified Code(s): D70.9 - Neutropenia, unspecified Time of Disposition: 23:49 Disposition: Discharge to Home or Self Care Condition: Fair Departure Forms: ED Discharge - Pt. Copy, Patient Portal Self Enrollment Instructions: DI for Abdominal Pain-Adult, Agranulocytosis, DI for Anemia of Chronic Disease, DI for Iron Deficiency Anemia-Adult, Anemia Referrals: GIORGI ANGELES [Primary Care Provider] - 1-2 Weeks Home Medications: Ambulatory Orders Alprazolam [Xanax] 2 mg PO BEDTIME 02/05/16 Acetaminophen W/ Codeine [Tylenol W/ CODEINE #3] 1 ea PO Q8H PRN #21 11/06/16 Famotidine 20 mg PO DAILY #15 tab 11/06/16 Hyoscyamine Sulfate [Levsin] 0.125 mg PO Q8H PRN #60 tab 11/06/16 Pantoprazole Tablet [Protonix] 40 mg PO BID 11/06/16 Promethazine HCl [Phenergan] 25 mg IN Q6H PRN #10 sup 11/06/16 Imitrex 08/21/17 Additional Instructions: Keep appointment with primary Md 23 August 2017 -Dr. Angeles;Continue with all home medications
[2017-08-21] MEDS ORDERED: LACTATED RINGERS 1,000 ML IVS ONE (22:00)
[2017-08-21 22:03] VITALS: O2SAT 98
[2017-08-21] MEDS ORDERED: PANTOPRAZOLE INJECTION 80 MG in SODIUM CHLORIDE 0.9% 100ML 80 ML IVPB ONE (22:21)
[2017-08-21] MEDS ORDERED: PROMETHAZINE HCL INJ 25 MG/ML VIAL IM ONE ×2 (22:21→23:50)
--- NOTE | 2017-08-21 22:26 | RAD ---
Examination: XR ABDOMEN 2 VIEWS SUPINE ERECT dated 08/21/2017 10:00 PM CDT History: pain Comparison: None Technique: Frontal view of the abdomen and pelvis FINDINGS: Prominent air-filled gastric bubble or large bowel within the left upper quadrant. Air-filled colon in the remainder of the abdomen. No suspicious calcifications. No acute osseous abnormalities. IMPRESSION: Air distended stomach or transverse colon within the left upper quadrant. Electronically signed by: Isra Miller MD 08/21/2017 10:25 PM CDT
--- NOTE | 2017-08-21 22:27 | RAD ---
Examination: XR CHEST 1 VIEW dated 08/21/2017 10:00 PM CDT History: pain Comparison: None Technique: 1 view chest Findings: No focal airspace consolidation. Mild right lung base atelectasis. No pneumothorax or pleural effusion. The cardiomediastinal silhouette is within normal limits. Right shoulder arthroplasty. Old bilateral rib fractures. Impression: No acute findings. Electronically signed by: Isra Miller MD 08/21/2017 10:26 PM CDT
[2017-08-21] MEDS ORDERED: PANTOPRAZOLE SODIUM IV 40 MG VIAL ONE (22:47)
[2017-08-21] MEDS ORDERED: SODIUM CHLORIDE 0.9% 100ML 100 ML IVPB ONE (22:47)
[2017-08-21] MEDS ORDERED: MORPHINE SULFATE INJ 10 MG/ML VIAL IV ONE (23:49)
[2017-08-22 00:15] VITALS: BP 119/75; TEMP 97.8
== END 2017-08-22 00:23 | disposition home or self-care (01) ==
LOC: ER 21:47
DX: R10.12 Left upper quadrant pain (principal); D70.9 Neutropenia, unspecified; D50.9 Iron deficiency anemia, unspecified; Z87.19 Personal history of other diseases of the digestive system; Z87.891 Personal history of nicotine dependence
CPT/HCPCS: 36415; 71045; 74019; 80048; 80076; 80307; 80320; 81001; 82270; 82550; 82553; 83605; 83690; 84484; 85025; 85610; 85730; J2270; J2550; J7050; J7120

== ENCOUNTER 2018-01-27 07:37 | Emergency (ER) | payer SELFPAY ==
[2018-01-27 07:53] VITALS: TEMP 98.1; O2SAT 96
[2018-01-27] MEDS ORDERED: PROMETHAZINE HCL INJ 25 MG/ML VIAL IM ONE (08:10)
[2018-01-27] MEDS ORDERED: KETOROLAC TROMETHAMINE INJ 60 MG/2 ML VIAL IM ONE (08:10)
--- NOTE | 2018-01-27 08:14 | ED.PDOC ---
History of Present Illness - General Chief Complaint: Dental/Mouth Stated Complaint: dental pain Time Seen by Provider: 01/27/18 08:05 Source: patient Exam Limitations: no limitations - History of Present Illness Initial Comments: Patient comes in for dental pain. Pain worse tonight but has been ongoing for 3 months and she is under the care of a dentist but their office is closed today. She takes Tylenol #4 at home for her shoulder and it has not helped. She has nausea from the pain. She states usually Dilaudid is the the thing that helps. She cannot take NSAIDS because of stomach ulcers but on review of past visits she has received Toradol without complication in the past. She states it has helped in the past on questioning. She has no fever, chills, purulence from area. Timing/Duration: other Severity: severe EENT Location: dental Prearrival Treatment: prescription meds Improving Factors: nothing Worsening Factors: nothing Associated Symptoms: denies symptoms Allergies/Adverse Reactions: Allergies Diphenhydramine [From Benadryl] Allergy (Verified 01/27/18 07:54) NSAIDs Allergy (Verified 01/07/18 22:16) Iodine Adverse Reaction (Verified 01/28/17 05:43) Metoclopramide [From Reglan] Adverse Reaction (Verified 01/28/17 05:43) Ondansetron Adverse Reaction (Verified 01/07/18 22:16) Home Medications: Ambulatory Orders Alprazolam [Xanax] 2 mg PO BEDTIME 02/05/16 Famotidine 20 mg PO DAILY #15 tab 11/06/16 Hyoscyamine Sulfate [Levsin] 0.125 mg PO Q8H PRN #60 tab 11/06/16 Pantoprazole Tablet [Protonix] 40 mg PO BID 11/06/16 Imitrex 08/21/17 Tylenol 4 1 each PO PRN 01/27/18 Review of Systems - Review of Systems Constitutional: States: no symptoms reported. Denies: chills, fever EENTM: States: see HPI Respiratory: States: no symptoms reported. Denies: short of breath, wheezing Cardiology: States: no symptoms reported Gastrointestinal/Abdominal: States: no symptoms reported Genitourinary: States: no symptoms reported Musculoskeletal: States: no symptoms reported Skin: States: no symptoms reported Past Medical History (General) - Patient Medical History Hx Seizures: No Hx Stroke: No Hx Dementia: No Hx Asthma: No Hx of COPD: No Hx Cardiac Disorders: No Hx Congestive Heart Failure: No Hx Pacemaker: No Hx Hypertension: Yes Hx Thyroid Disease: No Hx Diabetes: No Hx Gastroesophageal Reflux: Yes - gastric ulcer Hx Renal Disease: No Hx Cancer: No Hx of HIV: No Hx Hepatitis C: No Hx MRSA: No - Vaccination History Hx Tetanus, Diphtheria Vaccination: No Hx Influenza Vaccination: No Hx Pneumococcal Vaccination: No - Social History Hx Tobacco Use: Yes Hx Chewing Tobacco Use: No Hx Alcohol Use: No Hx Substance Use: No Hx Substance Use Treatment: No Hx Depression: Yes Hx Physical Abuse: No Hx Emotional Abuse: No Hx Suspected Abuse: No - Female History Patient : No Family Medical History - Family History Son Family History: No Known Hx Family Cancer: Yes - parents(mom-gastric;dad-unknownt type) Mother Living Status: Cause of : cancer Father Family History: Unknown Living Status: Cause of : cancer Physical Exam - Physical Exam General Appearance: Alert, No apparent distress Eye Exam: bilateral normal Nasal Exam: normal inspection Throat Exam: other - poor dentition with no erythema, edema, or flutulance, open area where tooth has been pulled Neck: non-tender, full range of motion, supple Cardiovascular/Respiratory: regular rate, rhythm, no M/R/G, normal peripheral pulses, no JVD, normal breath sounds Abdominal Exam: non-tender Neurologic: alert Progress - Results/Orders Results/Orders: Patient requests Dilaudid for her chronic tooth pain. I have declined and have given her phenergan and Toradol here. Follow up with dentist Departure - Departure Clinical Impression: Chronic dental pain Disposition: Discharge to Home or Self Care Condition: Fair Departure Forms: ED Discharge - Pt. Copy, Patient Portal Self Enrollment Referrals: GIORGI ANGELES [Primary Care Provider] - 1-2 Weeks Home Medications: Ambulatory Orders Alprazolam [Xanax] 2 mg PO BEDTIME 02/05/16 Famotidine 20 mg PO DAILY #15 tab 11/06/16 Hyoscyamine Sulfate [Levsin] 0.125 mg PO Q8H PRN #60 tab 11/06/16 Pantoprazole Tablet [Protonix] 40 mg PO BID 11/06/16 Imitrex 04/01/18 Tylenol 4 1 each PO PRN 01/27/18 Additional Instructions: follow up with dentist
[2018-01-27 08:40] VITALS: BP 146/88
== END 2018-01-27 08:36 | disposition home or self-care (01) ==
LOC: ER 07:37
DX: K08.89 Other specified disorders of teeth and supporting structures (principal); K08.109 Complete loss of teeth, unspecified cause, unspecified class; R11.0 Nausea; K21.9 Gastro-esophageal reflux disease without esophagitis; I10 Essential (primary) hypertension; F32.9 Major depressive disorder, single episode, unspecified; Z87.891 Personal history of nicotine dependence; Z88.8 Allergy status to other drugs, medicaments and biological substances; Z88.6 Allergy status to analgesic agent; Z91.041 Radiographic dye allergy status
CPT/HCPCS: J1885; J2550

== ENCOUNTER 2018-08-31 19:30 | Inpatient (IN) | payer SELFPAY ==
[2018-08-31] MEDS ORDERED: ACTIVATED CHARCOAL PELLETS 25 GM BTTL ONE (19:59)
[2018-08-31] MEDS ORDERED: FLUMAZENIL 0.1 MG/ML VIAL ONE (20:20)
--- NOTE | 2018-08-31 20:21 | RAD ---
EXAM DESCRIPTION: Chest,1 View CLINICAL HISTORY: 63 years Female ams COMPARISON: August 21, 2017. TECHNIQUE: AP view of the chest was obtained. FINDINGS: Cardiac silhouette is enlarged. Central vessels are indistinct. New airspace opacity right lung base with linear component. Possible fluid minor fissure on the right. Retrocardiac airspace opacity on left increased when correlated with the prior study. No effusion on left. No pneumothorax. Left shoulder prosthesis. IMPRESSION: Enlarged heart with moderate central congestion. New atelectatic change versus infiltrate right lung base. Possible small right pleural effusion. Increasing atelectatic change versus infiltrate left lung base. Electronically signed by: Marily Coleman MD 08/31/2018 8:17 PM CDT
[2018-08-31] MEDS ORDERED: FLUMAZENIL 0.1 MG/ML VIAL IV ONE (20:35)
--- NOTE | 2018-08-31 21:02 | CT ---
EXAM DESCRIPTION: Head CLINICAL HISTORY: 63 years Female ams COMPARISON: None TECHNIQUE: Images were obtained in axial, sagittal, and coronal planes. This exam was performed according to our departmental dose-optimization program which includes use of Automated Exposure Control, adjustment of the mA and/or kV according to patient size and/or use of iterative reconstruction technique. FINDINGS: Ventricular system appears prominent in size. Mild prominence of the cortical sulci. No abnormal areas of increased attenuation seen. No extra-axial fluid collections noted. No evidence for skull fracture. Symmetric aeration mastoid air cells bilaterally. Unremarkable paranasal sinuses. IMPRESSION: No acute intracranial abnormality. No evidence for hemorrhage, mass lesion, or large acute infarction. Mild cerebral volume loss. Electronically signed by: Marily Coleman MD 08/31/2018 8:59 PM CDT
[2018-08-31] MEDS ORDERED: SODIUM CHLORIDE 0.9% 1000ML 1,000 ML IVS ONE (21:11)
--- NOTE | 2018-08-31 21:19 | CT ---
EXAM DESCRIPTION: Chest w/o Contrast CLINICAL HISTORY: 63 years Female lung opacities COMPARISON: Radiograph of the chest performed on the same day. This study is also correlated with the CT scan of the thoracic spine dated October 05, 2013. TECHNIQUE: Images were obtained in axial, sagittal, and coronal planes. No intravenous contrast was administered. This exam was performed according to our departmental dose-optimization program which includes use of Automated Exposure Control, adjustment of the mA and/or kV according to patient size and/or use of iterative reconstruction technique. FINDINGS: Aortic root is dilated measuring 3.9 cm in greatest anterior posterior dimension. Heart is enlarged. No pericardial effusion. No adenopathy. Confluent airspace attenuation lower lobes bilaterally right greater than left consistent with infiltrate and patchy consolidation. Atelectatic changes suspected as well. No pneumothorax. No lung parenchymal nodules. Ill-defined airspace attenuation right upper lobe consistent with infiltrate. Additional groundglass attenuation lung chan bilaterally. Mild bilateral hydronephrosis. Surgical clips epigastric region. No acute osseous abnormality. Dorsal kyphosis. Compression fractures T4, T5, T6, T7, and T8 vertebral bodies unchanged when correlated with the prior study. Deformity superior body of sternum bilaterally related to more remote trauma. IMPRESSION: Infiltrate and patchy consolidation lower lobes bilaterally. Underlying atelectatic changes also present. Additional ill-defined infiltrate right upper lobe. Enlarged heart with increased pulmonary vascularity and pulmonary congestion. Electronically signed by: Marily Coleman MD 08/31/2018 9:16 PM CDT
[2018-08-31] MEDS ORDERED: metroNIDAZOLE IV PREMIX 500MG 500 MG in PREMIX BAG 1 BAG IVPB ONE (21:32)
[2018-08-31] MEDS ORDERED: AZITHROMYCIN IV 500 MG in SODIUM CHLORIDE 0.9% 250ML 250 ML IVPB ONE (21:32)
[2018-08-31] MEDS ORDERED: cefTRIAXone SODIUM 1 GM in SODIUM CHL 0.9% 50ML MIN-BAG+ 50 ML IVPB ONE (21:32)
[2018-08-31] MEDS ORDERED: IPRATROPIUM/ALBUTEROL 3 ML VIAL NEB ONE (21:33)
[2018-08-31] MEDS ORDERED: metroNIDAZOLE IV PREMIX 500MG 100 ML IVPB ONE (21:34)
[2018-08-31] MEDS ORDERED: cefTRIAXone SODIUM 1 GM VIAL ONE (21:34)
[2018-08-31] MEDS ORDERED: SODIUM CHL 0.9% 50ML MIN-BAG+ 50 ML IVPB ONE (21:35)
[2018-08-31] MEDS ORDERED: AZITHROMYCIN IV 500 MG VIAL IVPB ONE (22:42)
[2018-08-31] MEDS ORDERED: SODIUM CHLORIDE 0.9% 250ML 250 ML ONE (22:43)
[2018-08-31] MEDS ORDERED: DEX 5% W/NACL 0.45% 1000ML 1,000 ML IVS ONE ×2 (22:53→22:59)
--- NOTE | 2018-09-01 06:27 | ED.PDOC ---
History of Present Illness - General Source: patient Exam Limitations: no limitations - History of Present Illness Initial Comments: The patient is a 63-year-old female presenting to the emergency room after being brought in by her significant other secondary to altered mental status and significant drowsiness. the patient has been intermittently like this for the last 2-3 days. She does have a significant history of prescription drug abuse. She has presented like this several times. The patient does appear intoxicated. No history of any alcohol or illicit drug abuse. The patient's spouse states that he is actually missing a bottle of his Tylenol 3. She has Tylenol No. 4 and access to her own Xanax. He does not think that she has tried to hurt herself and with what limited ability she mumbles the same. Of note the patient goes from extremely drowsy but arousable to voice to unarousable to voice and with minimal pain response requiring a dose of flumazenil which does bring her back around. It also helps to stimulate her respiratory drive which did drop to around 6 or 7 breaths per minute there for a little bit. She is able to arouse to voice and light tactile stimulation but she is extremely drowsy, slurring her speech and confused. The patient is also hypoxic with oxygen saturations down around 85% on room air. She has no known history of any pulmonary disease and she does have some mild scattered rales. No evidence of any real nuchal rigidity. Timing/Duration: unsure Severity: moderate Improving Factors: nothing Worsening Factors: nothing Associated Symptoms: malaise, weakness <Amos Mcnair L - Last Filed: 09/01/18 06:22> <Leonard Singh - Last Filed: 09/01/18 08:42> - General Chief Complaint: Drug or Alcohol Abuse Stated Complaint: lethargic, pt drowsed, takes multiple meds Time Seen by Provider: 08/31/18 19:31 - History of Present Illness Allergies/Adverse Reactions: Allergies Diphenhydramine [From Benadryl] Allergy (Verified 01/27/18 07:54) NSAIDs Allergy (Verified 01/07/18 22:16) Iodine Adverse Reaction (Verified 01/28/17 05:43) Metoclopramide [From Reglan] Adverse Reaction (Verified 01/28/17 05:43) Ondansetron Adverse Reaction (Verified 01/07/18 22:16) Home Medications: Ambulatory Orders Alprazolam [Xanax] 2 mg PO BEDTIME 02/05/16 Famotidine 20 mg PO DAILY #15 tab 11/06/16 Hyoscyamine Sulfate [Levsin] 0.125 mg PO Q8H PRN #60 tab 11/06/16 Pantoprazole Tablet [Protonix] 40 mg PO BID 11/06/16 Imitrex 08/21/17 Tylenol 4 1 each PO PRN 01/27/18 Review of Systems - Review of Systems Constitutional: States: malaise EENTM: States: no symptoms reported Respiratory: States: cough Cardiology: States: no symptoms reported Gastrointestinal/Abdominal: States: no symptoms reported Genitourinary: States: no symptoms reported Musculoskeletal: States: see HPI - chronic pain issues Skin: States: no symptoms reported Neurological: States: see HPI - chronic anxiety and depression issues Endocrine: States: unexplained weight loss - reports weight loss of about 20 pounds over the last 6 months All other Systems: No Change from Baseline <Amos Mcnair - Last Filed: 09/01/18 06:22> Past Medical History (General) - Patient Medical History Hx Seizures: No Hx Stroke: No Hx Dementia: No Hx Asthma: No Hx of COPD: No Hx Cardiac Disorders: No Hx Congestive Heart Failure: No Hx Pacemaker: No Hx Hypertension: Yes Hx Thyroid Disease: No Hx Diabetes: No Hx Gastroesophageal Reflux: Yes - gastric ulcer Hx Renal Disease: No Hx Cancer: No Hx of HIV: No Hx Hepatitis C: No Hx MRSA: No Surgical History: other - Vaccination History Hx Tetanus, Diphtheria Vaccination: No Hx Influenza Vaccination: No Hx Pneumococcal Vaccination: No - Social History Hx Tobacco Use: Yes Hx Chewing Tobacco Use: No Hx Alcohol Use: No Hx Substance Use: No Hx Substance Use Treatment: No Hx Depression: Yes Hx Physical Abuse: No Hx Emotional Abuse: No Hx Suspected Abuse: No - Female History Patient : No <Amos Mcnair - Last Filed: 09/01/18 06:22> Family Medical History - Family History Son Family History: No Known Hx Family Cancer: Yes - parents(mom-gastric;dad-unknownt type) Mother Living Status: Cause of : cancer Father Family History: Unknown Living Status: Cause of : cancer <Amos Mcnair - Last Filed: 09/01/18 06:22> Physical Exam - Physical Exam General Appearance: Lethargic - but initially arousable to voice and light s timulation Eye Exam: bilateral normal - extraocular movements are intact. No gross evidence of any visual acute deficits. Pupils are fairly small around 2-3 mm with minimal reactivity Ears, Nose, Throat: hearing grossly normal, other - poor dentition Neck: non-tender - no obvious tenderness to palpation, full range of motion - passive Respiratory: no respiratory distress, no accessory muscle use, rales, rhonchi, other - in fact decreased respiratory drive initially Cardiovascular/Chest: normal peripheral pulses, regular rate, rhythm, no edema Peripheral Pulses: radial,right: 2+, radial,left: 2+, dorsalis pedis,left: 2+, posterior tibialis,right: 2+ Gastrointestinal/Abdominal: non tender, soft Rectal Exam: deferred Back Exam: no CVA tenderness - none reported by the patient on exam though she does have chronic discomfort, no vertebral tenderness Extremity: normal range of motion, no pedal edema, normal capillary refill Neurologic: other - the patient is extremely drowsy and disoriented. Mental status as per history of present illness. Difficult to assess neurologically otherwise in this state. No obviousdeficits in moving any of her extremities. No obvious focal sensory losses. Skin Exam: normal color Comments: Vital Signs - 24 hr 08/31/18 08/31/18 08/31/18 19:40 20:30 21:15 Temperature 97.6 F Pulse Rate 63 63 Pulse Rate [ 64 63 59 L left] Respiratory 16 16 16 Rate Blood Pressure 131/95 138/91 146/94 [left] O2 Sat by Pulse 87 L 94 L 95 Oximetry 08/31/18 08/31/18 08/31/18 21:54 22:00 23:00 Temperature Pulse Rate Pulse Rate [ 67 64 left] Respiratory 14 12 18 Rate Blood Pressure 133/80 151/79 [left] O2 Sat by Pulse 95 96 Oximetry 09/01/18 09/01/18 09/01/18 00:00 01:16 02:00 Temperature Pulse Rate Pulse Rate [ 64 62 64 left] Respiratory 18 18 18 Rate Blood Pressure 131/64 118/83 122/80 [left] O2 Sat by Pulse 96 96 96 Oximetry 09/01/18 09/01/18 03:00 04:00 Temperature Pulse Rate Pulse Rate [ 57 L 56 L left] Respiratory 18 12 Rate Blood Pressure 153/87 127/74 [left] O2 Sat by Pulse 96 99 Oximetry <Amos Mcnair L - Last Filed: 09/01/18 06:22> Progress - Progress Progress: 09/01/18 06:31 the patient's a 63-year-old female presenting to emergency room with what appears to be an accidental overdose most likely on Tylenol 3 and Tylenol No. 4 and her Xanax. She did have an initial period of suppressed respiratory drive and significant decreased responsiveness requiring a dose of flumazenil. Blood pressures, pulse oximetry and end-tidal CO2's have been monitored the entire night, with reassuring numbers. She does require about 3 L of s upplemental oxygen to maintain oxygen saturations around 94-95% in light of the pneumonia. With her scattered pulmonary infiltrates, likely etiology is aspiration given her mental status last few days. The patient is being covered with Rocephin and azithromycin metronidazole. Blood cultures have been performed. She did receive some breathing treatments. The patient is starting to wake up a little more and at least form sentences. Her responses at this point are still significantly unreliable and she falls back asleep fairly quickly. She is being monitored here until we can gather more information from her to make sure she does not need to be sent to a different facility. If not then she can be admitted here for bilateral pneumonia. She is on low-flow D5 half NS for maintenance purposes. - Results/Orders Results/Orders: chest x-ray and CT scan are in agreement with scattered patchy infiltrates. She does have a moderately dilated aortic root at 3.9 cm and some mild cardiomegaly. Laboratory Tests 06/03/18 08/31/18 08/31/18 00:20 19:39 20:00 WBC RBC Hgb Hct MCV MCH MCHC RDW Plt Count MPV Absolute Neuts (auto) Absolute Lymphs (auto) Absolute Monos (auto) Absolute Eos (auto) Absolute Basos (auto) Neutrophils % Lymphocytes % Monocytes % Eosinophils % Basophils % Sodium 137 Potassium 3.9 Chloride 108 Carbon Dioxide 21 Anion Gap 11.9 L BUN 13 Creatinine 0.77 BUN/Creatinine Ratio 16.9 Random Glucose 74 Serum Osmolality 272.6 L Lactic Acid Calcium 9.1 Magnesium 1.9 Total Bilirubin 0.3 AST 31 ALT 16 Alkaline Phosphatase 69 Ammonia Creatine Kinase Cancelled 332 H* CK-MB (CK-2) Cancelled 17.0 H* CK-MB (CK-2) % Cancelled 5.12 H Troponin I Cancelled < 0.02 B-Natriuretic Peptide 100.0 Serum Total Protein 7.1 Albumin 3.6 Globulin 3.5 Albumin/Globulin Ratio 1.0 L Urine Color Urine Appearance Urine pH Ur Specific Barnhart Urine Protein Urine Glucose (UA) Urine Ketones Urine Blood Urine Nitrite Urine Bilirubin Urine Urobilinogen Ur Leukocyte Esterase Urine RBC Urine WBC Ur Epithelial Cells Urine Bacteria Salicylates Urine Opiates Screen Positive H Acetaminophen Cancelled Urine Barbiturates Negative Ur Phencyclidine Scrn Negative U Amphetamin/Meth Scrn Negative U Benzodiazepines Scrn Positive H U Cocaine Metab Screen Negative U Cannabinoids Screen Negative Ethyl Alcohol 08/31/18 08/31/18 08/31/18 20:00 20:00 20:00 WBC 6.3 RBC 3.46 L Hgb 9.6 L Hct 31.4 L MCV 90.6 MCH 27.9 MCHC 30.7 L RDW 16.5 H Plt Count 135 MPV 9.0 Absolute Neuts (auto) 4.80 Absolute Lymphs (auto) 0.80 L Absolute Monos (auto) 0.70 Absolute Eos (auto) 0.00 Absolute Basos (auto) 0.00 Neutrophils % 75.2 Lymphocytes % 13.0 L Monocytes % 11.0 H Eosinophils % 0.6 L Basophils % 0.2 Sodium Potassium Chloride Carbon Dioxide Anion Gap BUN Creatinine BUN/Creatinine Ratio Random Glucose Serum Osmolality Lactic Acid 1.2 Calcium Magnesium Total Bilirubin AST ALT Alkaline Phosphatase Ammonia 24 Creatine Kinase CK-MB (CK-2) CK-MB (CK-2) % Troponin I B-Natriuretic Peptide Serum Total Protein Albumin Globulin Albumin/Globulin Ratio Urine Color Urine Appearance Urine pH Ur Specific Barnhart Urine Protein Urine Glucose (UA) Urine Ketones Urine Blood Urine Nitrite Urine Bilirubin Urine Urobilinogen Ur Leukocyte Esterase Urine RBC Urine WBC Ur Epithelial Cells Urine Bacteria Salicylates Urine Opiates Screen Acetaminophen Urine Barbiturates Ur Phencyclidine Scrn U Amphetamin/Meth Scrn U Benzodiazepines Scrn U Cocaine Metab Screen U Cannabinoids Screen Ethyl Alcohol 08/31/18 08/31/18 08/31/18 20:00 20:00 20:01 WBC RBC Hgb Hct MCV MCH MCHC RDW Plt Count MPV Absolute Neuts (auto) Absolute Lymphs (auto) Absolute Monos (auto) Absolute Eos (auto) Absolute Basos (auto) Neutrophils % Lymphocytes % Monocytes % Eosinophils % Basophils % Sodium Potassium Chloride Carbon Dioxide Anion Gap BUN Creatinine BUN/Creatinine Ratio Random Glucose Serum Osmolality Lactic Acid Calcium Magnesium Total Bilirubin AST ALT Alkaline Phosphatase Ammonia Creatine Kinase CK-MB (CK-2) CK-MB (CK-2) % Troponin I B-Natriuretic Peptide Serum Total Protein Albumin Globulin Albumin/Globulin Ratio Urine Color Yellow Urine Appearance Clear Urine pH 6.0 Ur Specific Barnhart 1.010 Urine Protein Negative Urine Glucose (UA) Negative Urine Ketones Negative Urine Blood Negative Urine Nitrite Negative Urine Bilirubin Negative Urine Urobilinogen 0.2 Ur Leukocyte Esterase Negative Urine RBC 0 Urine WBC 0 Ur Epithelial Cells 0 Urine Bacteria 0 Salicylates 4.2 Urine Opiates Screen Acetaminophen 21.7 Urine Barbiturates Ur Phencyclidine Scrn U Amphetamin/Meth Scrn U Benzodiazepines Scrn U Cocaine Metab Screen U Cannabinoids Screen Ethyl Alcohol < 5.40 09/01/18 00:20 WBC RBC Hgb Hct MCV MCH MCHC RDW Plt Count MPV Absolute Neuts (auto) Absolute Lymphs (auto) Absolute Monos (auto) Absolute Eos (auto) Absolute Basos (auto) Neutrophils % Lymphocytes % Monocytes % Eosinophils % Basophils % Sodium Potassium Chloride Carbon Dioxide Anion Gap BUN Creatinine BUN/Creatinine Ratio Random Glucose Serum Osmolality Lactic Acid Calcium Magnesium Total Bilirubin AST ALT Alkaline Phosphatase Ammonia Creatine Kinase 466 H* D CK-MB (CK-2) 24.7 H* D CK-MB (CK-2) % 5.30 H Troponin I < 0.02 B-Natriuretic Peptide Serum Total Protein Albumin Globulin Albumin/Globulin Ratio Urine Color Urine Appearance Urine pH Ur Specific Barnhart Urine Protein Urine Glucose (UA) Urine Ketones Urine Blood Urine Nitrite Urine Bilirubin Urine Urobilinogen Ur Leukocyte Esterase Urine RBC Urine WBC Ur Epithelial Cells Urine Bacteria Salicylates Urine Opiates Screen Acetaminophen 11.4 Urine Barbiturates Ur Phencyclidine Scrn U Amphetamin/Meth Scrn U Benzodiazepines Scrn U Cocaine Metab Screen U Cannabinoids Screen Ethyl Alcohol <Amos Mcnair L - Last Filed: 09/01/18 06:22> - Progress Progress: 09/01/18 08:40 PT NOW AWAKE AND ALERT, REQUESTING FOOD AND DRINK. SPO2 REMAINS STABLE ON 3L NC. WILL REFER TO HOSPITALIST FOR ADMISSION. <Leonard Singh Danny - Last Filed: 09/01/18 08:42> Departure <Amos Mcnair - Last Filed: 09/01/18 06:22> <Leonard Singh Danny - Last Filed: 09/01/18 08:42> - Departure Clinical Impression: Accidental overdose, Bilateral pneumonia, Hypoxia Disposition: Discharge to Home or Self Care Condition: Fair Departure Forms: ED Discharge - Pt. Copy, Patient Portal Self Enrollment Instructions: DI for Drug Overdose in Adults Referrals: GIORGI ANGELES [Primary Care Provider] - 1-2 Weeks Home Medications: Ambulatory Orders Alprazolam [Xanax] 2 mg PO BEDTIME 02/05/16 Famotidine 20 mg PO DAILY #15 tab 11/06/16 Hyoscyamine Sulfate [Levsin] 0.125 mg PO Q8H PRN #60 tab 11/06/16 Pantoprazole Tablet [Protonix] 40 mg PO BID 11/06/16 Imitrex 08/21/17 Tylenol 4 1 each PO PRN 01/27/18 Critical Care Note - Critical Care Note Total Time (mins): 65 <Leonard Singh Danny - Last Filed: 09/01/18 08:42> Decision To Admit - Decistion To Admit Decision to Admit Reason: Admit from ER Decision to Admit Date: 09/01/18 Decision to Admit Time: 08:42 - CASE DISCUSSED WITH SABIHA GLOVER NP WHO AGREES TO ADMIT <Leonard Singh - Last Filed: 09/01/18 08:42>
--- NOTE | 2018-09-01 09:12 | HP ---
SUPERVISING PHYSICIAN: Javad Mcnair MD CHIEF COMPLAINT: Altered mental status with significant drowsiness. HISTORY OF PRESENT ILLNESS: This is a 63 year-old female patient who came to the Emergency Room after being brought in by her significant other due to her altered mental status and drowsiness. She had been like this for the past 2 to 3 days but he got to where he could not hardly wake her up. She has a significant history of prescription drug abuse. She has been to the Emergency Room multiple times for the same complaints. The did say he was actually missing a bottle of Tylenol No. 3, although she does have Tylenol #4 as well as prescription Xanax that she takes routinely. She has a PCP in [place], [place]. He was unable to arouse her and on admission to the hospital she had a respiratory rate that went down to 6. She was given some more Romazicon at multiple times which did help with her mental status. She was able to arouse to voice and tactile stimulus but continued to be extremely drowsy afterwards. Her speech was slurred and she could not answer questions appropriately. She was hypoxic with her oxygen saturation in the mid 80s. She was placed on oxygen and they came up to low 90s. She does have a heart of chronic migraines as well as some chronic stomach pain. In the Emergency Room, her urine drug screen was positive for opiates as well as benzodiazepines. Her lactic acid was 1.2, creatinine kinase 332, CKMB 17, troponin less than 0.02. Ammonia level was 24 and WBC 6.3 with hemoglobin 9.6 and hematocrit of 31.4. Blood cultures were drawn. Chest CT was done that showed infiltrate and patchy consolidations in the lower lobe bilaterally, underlying atelectatic changes also present. Additional ill-defined infiltrate in the right upper lobe. Her chest x-ray shows enlarged heart with moderate central congestion, new atelectatic change versus infiltrate, right lung base with a possible small right pleural effusion, increase in atelectatic change versus infiltrate in the left lung base. Head CT showed no acute intracranial abnormality, no evidence for hemorrhage, mass lesion or large acute infarction with mild cerebral volume loss. I was called for hospital admission. Past medical history and review of systems are difficult to obtain due to the patient's lethargy. PAST MEDICAL HISTORY: 1. Hypertension. 2. Chronic abdominal pain. 3. Gastroesophageal reflux disease. 4. Anxiety. 5. Migraine headaches. PAST SURGICAL HISTORY: Unknown. ALLERGIES: 1, Diphenhydramine, 2. NSAIDS. 3. Iodine. 4. Reglan. 5. Zofran. HOME MEDICATIONS: 1. Acetaminophen.with codeine. 2. Alprazolam. 3. Cyclobenzaprine. 4. Pantoprazole. 5. Antispas. 6. Ranitidine. 7. Imitrex. SOCIAL HISTORY: Patient lives in [place]. Her PCP is in [place], [place]. Per nursing, her told them earlier she does have a history of tobacco use but no ETOH or illicit drug use. REVIEW OF SYSTEMS: Unable to obtain due to patient's lethargy. PHYSICAL EXAMINATION: VITAL SIGNS: Temperature 97.7, heart rate 68, blood pressure 145/88, respiratory rate 14, saturation 92% on 2 liters nasal cannula. GENERAL: This is a 63 year-old female patient lying in her hospital bed. She is difficult to arouse. She does not answer questions other than moaning. HEENT: Normocephalic and atraumatic. Her pupils are around 3, they do react but it is very minimal. Oropharynx is clear. She does have poor dentition. NECK: Supple without mass. RESPIRATORY: Very diminished breath sounds throughout. No rales or rhonchi noted. CARDIOVASCULAR: Regular rate and rhythm. ABDOMEN: Soft, nondistended, bowel sounds are positive. EXTREMITIES: No cyanosis, clubbing, or edema. NEUROLOGIC: She is obtunded but does awaken and open eyes. She mumbles but does not respond to any vocal questioning. LABORATORY: As per the history of present illness. ASSESSMENT: 1. Bilateral lower lobe pneumonia, most likely community acquired but due to questionable right upper lobe infiltrate, cannot rule out an aspiration pneumonia due to her lethargy and probable drug overdose. 2. Drug overdose, most likely benzodiazepines and Tylenol with codeine. Given Romazicon with improvement. She is slowly improving. 3. Significant history of prescription drug abuse. 4. Chronic abdominal pain, on multiple GI medications. 5. Elevated creatinine kinase and CKMB. 6. Hypertension. 7. Anxiety and depression. 8. Gastroesophageal reflux disease. PLAN: We will admit the patient to the hospital, I have initiated the pneumonia guidelines and I have continued the azithromycin and the Rocephin. Hopefully, she will improve tomorrow. If not, we may need to add something for aspiration pneumonia. About the only response we have gotten from the patient according to the nursing staff is she has complaints of this chronic abdominal pain for which she asked for Tylenol #4. I have started all of her home medications with the exception of her Tylenol with codeine and Xanax, although I know I will have to restart those as she has had those long-term and we will need to restart them at low-doses and carefully. I am not sure what is causing the abdominal pain. Tomorrow morning, I will do CT scan of her abdomen and pelvis to rule out any other issues but I have also given her some Carafate as well as some p.r.n. Antispas. She also has a PPI for ulcer prophylaxis as well as Lovenox for DVT prophylaxis. I will repeat her lab and x-ray in the morning and will monitor cultures as they become available. Will follow her closely and treat as needed. #[id number] MTDD
[2018-09-01] MEDS ORDERED: SODIUM CHLORIDE 0.9% (FLUSH) 10 ML SYG IV PRN (09:53)
[2018-09-01] MEDS ORDERED: ALBUTEROL SULFATE 2.5 MG/3 ML VIAL NEB PRN (09:53)
[2018-09-01] MEDS ORDERED: IV SET AND CAP CHANGE INJ INJ SCH (10:00)
[2018-09-01] MEDS ORDERED: SUMATRIPTAN SUCCINATE 100 MG PO PRN (10:41)
[2018-09-01] MEDS ORDERED: SUMAtriptan SUCCINATE 50 MG TAB ONE (11:09)
[2018-09-01] MEDS: IPRATROPIUM/ALBUTEROL 3 ML VIAL NEB SCH ×3 (16:08→20:28)
[2018-09-01] MEDS ORDERED: ACETAMINOPHEN W/COD #3 TAB 1 EA TAB PO ONE (17:51)
[2018-09-01] MEDS ORDERED: SODIUM CHLORIDE 0.9% 250ML 250 ML ONE (19:13)
[2018-09-01] MEDS ORDERED: cefTRIAXone SODIUM 1 GM VIAL ONE (19:14)
[2018-09-01] MEDS ORDERED: SODIUM CHL 0.9% 50ML MIN-BAG+ 50 ML IVPB ONE (19:14)
[2018-09-01] MEDS ORDERED: PANTOPRAZOLE SODIUM IV 40 MG VIAL ONE (19:14)
[2018-09-01] MEDS ORDERED: AZITHROMYCIN IV 500 MG VIAL IVPB ONE (19:14)
[2018-09-01] MEDS ORDERED: HYOSCYAMINE SULFATE 0.125 MG TAB PO PRN (20:55)
[2018-09-01] MEDS: ENOXAPARIN SODIUM 40 MG/0.4 ML SYG SUBCU SCH (21:36)
[2018-09-01] MEDS: SUCRALFATE 1 GM TAB PO SCH (21:36)
[2018-09-01] MEDS: cefTRIAXone SODIUM 1 GM in SODIUM CHL 0.9% 50ML MIN-BAG+ 50 ML IVPB SCH (21:38)
[2018-09-01] MEDS: SODIUM CHLORIDE 0.9% (FLUSH) 10 ML SYG IV SCH (21:54)
[2018-09-01] MEDS: AZITHROMYCIN IV 500 MG in SODIUM CHLORIDE 0.9% 250ML 250 ML IVPB SCH (22:20)
[2018-09-02] MEDS: ACETAMINOPHEN 325 MG TAB PO PRN ×2 (02:09→11:36)
[2018-09-02] MEDS: ALPRAZolam 0.5 MG TAB PO PRN ×2 (05:27→20:41)
[2018-09-02] MEDS: PANTOPRAZOLE SODIUM IV 40 MG VIAL IV SCH (06:27)
[2018-09-02] MEDS: SUCRALFATE 1 GM TAB PO SCH ×4 (06:27→20:40)
--- NOTE | 2018-09-02 07:13 | RAD ---
EXAM: XR Chest, 2 Views CLINICAL HISTORY: The patient is 63 years old and is Female; Pneumonia TECHNIQUE: Frontal and lateral views of the chest. COMPARISON: Chest radiograph from 08/31/2018 FINDINGS: LUNGS: Minimal subsegmental atelectasis in the right midlung. This is slightly decreased since the prior study. There is also minimal bibasilar atelectasis. PLEURAL SPACE: Unremarkable. No pneumothorax. HEART: Mild enlargement of the cardiac silhouette. MEDIASTINUM: Unremarkable. BONES/JOINTS: The bones are unchanged. Right shoulder prosthesis in place. IMPRESSION: Minimal subsegmental atelectasis in the lung bases and right midlung. Electronically signed by: Harleen Lorenzo MD 09/02/2018 7:10 AM CDT
[2018-09-02] MEDS: ACETAMINOPHEN W/COD #3 TAB 1 EA TAB PO PRN ×3 (07:30→21:31)
--- NOTE | 2018-09-02 07:30 | CT ---
EXAM: CT Abdomen and Pelvis Without Intravenous Contrast CLINICAL HISTORY: The patient is 63 years old and is Female; abd pain TECHNIQUE: Axial computed tomography images of the abdomen and pelvis without intravenous contrast. Sagittal and coronal reformatted images were created and reviewed. This CT exam was performed using one or more of the following dose reduction techniques: automated exposure control, adjustment of the mA and/or kV according to patient size, and/or use of iterative reconstruction technique. COMPARISON: CT abdomen pelvis from 05/29/2011 ; CT chest from 08/31/2018 FINDINGS: LUNG BASES: Mild bibasilar densities suggesting atelectasis. These are improved compared to the recent chest CT. ABDOMEN: LIVER: Unremarkable. No obvious liver masses appreciated on this non-contrast exam. GALLBLADDER AND BILE DUCTS: Unremarkable. No calcified stones. No significant biliary ductal dilatation. PANCREAS: Unremarkable. No ductal dilation. SPLEEN: Unremarkable. No splenomegaly. ADRENALS: Unremarkable. No adrenal nodules or masses identified. KIDNEYS AND URETERS: Small right renal cyst. No obvious solid renal mass. There is a punctate stone in the inferior pole of the right kidney. No hydronephrosis. No ureteral stones visualized. STOMACH AND BOWEL: There is mild colonic wall thickening which is most prominent at the level of the proximal colon. No bowel obstruction. PELVIS: APPENDIX: The appendix is unremarkable. BLADDER: A Lawrence catheter is in place within the urinary bladder. There is also air within the urinary bladder, which is likely related to the catheter placement. No stones. REPRODUCTIVE: The uterus is atrophic. ABDOMEN and PELVIS: INTRAPERITONEAL SPACE: There is suggestion of trace free fluid in the pelvis. No abscess. No free air visualized. BONES/JOINTS: No acute fracture. No dislocation. SOFT TISSUES: No significant abnormalities in the superficial soft tissues. VASCULATURE: Atherosclerotic calcifications are noted. No aortic aneurysm. LYMPH NODES: No significant lymph node enlargement. IMPRESSION: 1. Mild colonic wall thickening which is most prominent at the level of the proximal colon. This may be secondary to nondistention or mild colitis. 2. Trace free fluid in the pelvis. Electronically signed by: Harleen Lorenzo MD 09/02/2018 7:27 AM CDT
[2018-09-02] MEDS: IPRATROPIUM/ALBUTEROL 3 ML VIAL NEB SCH ×4 (09:05→20:38)
[2018-09-02] MEDS: SUMAtriptan SUCCINATE 50 MG TAB PO PRN (09:10)
[2018-09-02] MEDS: SODIUM CHLORIDE 0.9% (FLUSH) 10 ML SYG IV SCH ×2 (09:10→20:41)
[2018-09-02] MEDS ORDERED: MAGNESIUM SULFATE PREMIX 2GM 2 GM in PREMIX BAG 1 BAG IVPB ONE (09:14)
[2018-09-02] MEDS ORDERED: POTASSIUM CHLORIDE 20 MEQ TAB PO ONE (09:14)
[2018-09-02] MEDS ORDERED: MAGNESIUM SULFATE PREMIX 2GM 50 ML IVPB ONE (09:38)
[2018-09-02] MEDS ORDERED: CLINDAMYCIN IV 900MG 50 ML IVPB ONE ×3 (09:39→19:32)
[2018-09-02] MEDS: CLINDAMYCIN IV 900MG 900 MG in PREMIX BAG 1 BAG IVPB SCH ×2 (09:44→17:33)
[2018-09-02] MEDS ORDERED: POTASSIUM CHLORIDE ELIXIR 20 MEQ/15 ML UD PO ONE (16:10)
[2018-09-02] MEDS ORDERED: SODIUM CHL 0.9% 50ML MIN-BAG+ 50 ML IVPB ONE (19:29)
[2018-09-02] MEDS ORDERED: SODIUM CHLORIDE 0.9% 250ML 250 ML ONE (19:29)
[2018-09-02] MEDS ORDERED: cefTRIAXone SODIUM 1 GM VIAL ONE (19:30)
[2018-09-02] MEDS ORDERED: AZITHROMYCIN IV 500 MG VIAL IVPB ONE (19:32)
[2018-09-02] MEDS: ENOXAPARIN SODIUM 40 MG/0.4 ML SYG SUBCU SCH (20:40)
[2018-09-02] MEDS: cefTRIAXone SODIUM 1 GM in SODIUM CHL 0.9% 50ML MIN-BAG+ 50 ML IVPB SCH (20:42)
[2018-09-02] MEDS: AZITHROMYCIN IV 500 MG in SODIUM CHLORIDE 0.9% 250ML 250 ML IVPB SCH (21:24)
[2018-09-03] MEDS: CLINDAMYCIN IV 900MG 900 MG in PREMIX BAG 1 BAG IVPB SCH ×2 (01:16→09:07)
[2018-09-03] MEDS: SUMAtriptan SUCCINATE 50 MG TAB PO PRN (02:26)
[2018-09-03] MEDS: PANTOPRAZOLE SODIUM IV 40 MG VIAL IV SCH (05:58)
[2018-09-03] MEDS: ACETAMINOPHEN W/COD #3 TAB 1 EA TAB PO PRN (06:12)
[2018-09-03] MEDS: SUCRALFATE 1 GM TAB PO SCH ×2 (06:12→11:41)
[2018-09-03] MEDS: ALPRAZolam 0.5 MG TAB PO PRN (06:26)
[2018-09-03] MEDS ORDERED: CLINDAMYCIN IV 900MG 50 ML IVPB ONE (07:29)
[2018-09-03] MEDS: IPRATROPIUM/ALBUTEROL 3 ML VIAL NEB SCH ×2 (08:42→11:59)
[2018-09-03] MEDS ORDERED: NEBIVOLOL 2.5 MG TAB PO ONE ×2 (08:58→10:30)
[2018-09-03] MEDS: SODIUM CHLORIDE 0.9% (FLUSH) 10 ML SYG IV SCH (09:04)
--- NOTE | 2018-09-03 09:57 | PN ---
SUPERVISING PHYSICIAN: Javad Mcnair MD DATE: 09/02/18 SUBJECTIVE: The patient is sitting up in bed. She is talking to her . She continues to complain of some left upper quadrant abdominal pain. She is much more alert today. We discussed followup with her GI doctor as well as her clinical picture. She asks about seeing a physician here in [place] and I told her that [facility] could see her and help her with some financial assistance. She has no complaints of nausea, vomiting, diarrhea, chest pain or shortness of breath. OBJECTIVE: VITAL SIGNS: Temperature 96.4, heart rate 84, blood pressure 156/72, respiratory rate 16, 02 saturation 92% on room air. CHEST: Essentially clear to auscultation bilaterally. There are a few scattered rhonchi in the right upper quadrant. No wheezing or crackles noted. CARDIAC: Regular rate and rhythm. GI: Abdomen soft, nondistended. She is mildly tender in the left upper quadrant. There is no rebound tenderness. No guarding. Bowel sounds are positive. NEURO: She is awake, alert, and oriented x3. LABORATORY: WBCs 3.4, hemoglobin 9.3, hematocrit 29.2. Potassium 3.1, magnesium 1.7. The remainder of her electrolytes are within normal limits. Blood cultures show no growth at 24 hours. Chest x-ray shows minimal subsegmental atelectasis in the lung bases and right mid lung. Abdomen and pelvis CT: 1. Mild colonic wall thickening most prominent at the level of the proximal colon. This may be secondary to non-distention or mild colitis. 2. Trace of free fluid in the pelvic. All other labs and films have been reviewed via the EMR. ASSESSMENT: 1. Bilateral lower lobe pneumonia, most likely community acquired as well as right upper lobe pneumonia that may be due to aspiration. . 2. Drug overdose, most likely benzodiazepines and Tylenol with codeine. She was given Romazicon in the Emergency Room with improvement. She is awake and alert today. 3. Chronic abdominal pain with continued complaints of mostly left upper quadrant abdominal pain. She is on multiple GI medications and may be due to some colitis.. 4. Significant history of prescription drug abuse. 5. Elevated creatinine kinase and CKMB. 6. Hypertension. 7. Anxiety and depression. 8. Gastroesophageal reflux disease. PLAN: We will continue present supportive care. We will monitor her cultures as well as her clinical response. I will continue her on her present antibiotic therapy including Clindamycin for aspiration pneumonia. I have given her potassium and magnesium supplementation today. She still has a Lawrence catheter and will need to start bladder training tomorrow. I will also do an ultrasound of the abdomen as soon [employer] is available. We will also try to make an appointment with [facility] as well as Dr. Fitzpatrick at her request for followup after discharge. I will also make sure that Tammy Gtz, [employer], is aware of her financial problems and it would be beneficial for her to see Tammy at [facility]. She has seen Dr. Price, GI specialist in [place], in the past, although it has been greater than 10 years. She has never had a colonoscopy or EGD. At discharge, she does need to followup with a GI specialist. I will repeat her labs in the morning and continue to follow as needed. #[id number] MTDD
[2018-09-03 10:11] VITALS: BP 130/91; TEMP 98.3
[2018-09-03] MEDS ORDERED: POTASSIUM CHLORIDE ELIXIR 20 MEQ/15 ML UD PO ONE (11:00)
[2018-09-03 12:03] VITALS: O2SAT 91
--- NOTE | 2018-09-03 17:31 | DS ---
SUPERVISING PHYSICIAN: Javad Mcnair M.D. DISCHARGE DIAGNOSIS: 1. Bilateral lower lobe pneumonia, most likely community acquired as well as right upper lobe pneumonia that may be due to aspiration. . 2. Drug overdose, most likely benzodiazepines and Tylenol with codeine. She was given Romazicon in the Emergency Room with improvement. She is awake and alert today. 3. Chronic abdominal pain with continued complaints of mostly left upper quadrant abdominal pain. She is on multiple GI medications and may be due to some colitis.. 4. Significant history of prescription drug abuse. 5. Elevated creatinine kinase and CK-MB that have improved. 6. Hypertension. 7. Anxiety and depression. 8. Gastroesophageal reflux disease. HISTORY OF PRESENT ILLNESS: This is a 63 year-old female patient who brought into the Emergency Room on the date of admission due to her altered mental status and drowsiness. She had been altered and drowsy for 2 to 3 days prior to her admission at the point where he could hardly wake her up, he brought her in. She does have a significant history of prescription drug abuse and has been to the Emergency Room multiple times for the same complaints. The takes Tylenol No. 3 and the patient takes Tylenol #4 and he said that he was missing his Tylenol #3. She also takes Xanax routinely. Her PCP is in [place], [place]. He had been in [place] and she followed him to [place]. Her brought her to the Emergency Room because he was unable to arouse her. She had a respiratory rate that went down to 6. She was given Romazicon at multiple times in the Emergency Room and her mental status improved. She was able to arouse to voice and tactile stimulus but continued to be extremely drowsy. Her speech was slurred and she could not answer questions appropriately. She was hypoxic with her oxygen saturation in the mid 80s. After being placed on oxygen they came up to the low 90s. She does have a history of chronic migraines as well as some chronic stomach pain and is on multiple GI medications. In the Emergency Room, her urine drug screen was positive for opiates as well as benzodiazepines. Her lactic acid was 1.2, creatinine kinase 332, CK-MB 17, troponin less than 0.02. Ammonia level was 24 and WBC 6.3 with hemoglobin 9.6 and hematocrit of 31.4. Blood cultures were drawn. Chest CT was done that showed infiltrate and patchy consolidations in the lower lobe bilaterally with underlying atelectatic changes present. Additional ill-defined infiltrate in the right upper lobe. Her chest x-ray shows enlarged heart with moderate central congestion, new atelectatic change versus infiltrate right lung base with a possible small right pleural effusion, increase in atelectatic change versus infiltrate in the left lung base. Head CT showed no acute intracranial abnormality, no evidence for hemorrhage, mass lesion or large acute infarction with mild cerebral volume loss. She was admitted to the hospital. HOSPITAL COURSE: Over the next 24 hours she continued to be difficult to arouse. The pneumonia protocol was initiated. Her Benzodiazepines and Tylenol #4 were held. She was started on the pneumonia protocol and given azithromycin and Rocephin with aggressive pulmonary hygiene, including breathing treatments. Her main complaint during her early stay was due to abdominal pain and she continually asked for her Tylenol #4. I explained to her in depth as well as to her that the Tylenol #3 was most likely not appropriate for her abdominal pain. She has seen Dr. Canas in the past, GI specialist, but it has been over [address] of the abdomen was done and showed some possible colitis. I gave her some Carafate as well as continued her Anaspaz. She also had a PPI. Her mental condition improved but her pneumonia symptoms persisted as well as her chest x-ray showed a persistent possible infiltrate in the right middle lobe. I added Clindamycin for possible aspiration pneumonia as the patient was quite lethargic for several days and could have easily aspirated at some point. After adding the Clindamycin she improved dramatically over the next several days. Her electrolytes were slightly low and she had to have potassium and magnesium supplementation. Creatinine kinase and CK-MB also stabilized. She has a PCP in [place], [place] and she also has no funding. I contacted [facility] right after her admission and discussed at length with her about changing her primary care to [facility] and Dr. Fitzpatrick. Tammy Gtz, our [employer], could assist her with patient assistance. She would like to have a followup with Dr. Fitzpatrick as well as to see Tammy Gtz. Her is a heavy truck technician and he works sporadically and has not worked in several weeks. I told her it would be beneficial for her, since she is a [facility] resident, to take part in their patient assistance. Her Lawrence has been discontinued. She will be discharged home today in stable condition. LABORATORY: WBCs on admission were 6.3 and yesterday were 3.4. Hemoglobin and hematocrit are slightly low but stabilized at 9.3 and 29.2. Sodium on admission was 137 and remained stable, and today is 143. Potassium on admission was 3.9 and today is 3.2, and she has received some supplementation. Her other electrolytes were within normal limits. Magnesium was low at 1.7 and required supplementation, and it is 1.9. Creatinine kinase was 466 and is now 93. CK-MB got as high at 24.7 and is now 1.4. Urinalysis was unremarkable. Preliminary blood cultures show no growth after 48 hours. Influenza type A and B per PCR were both negative. Her other labs are per the History of Present Illness. RADIOLOGY: Chest CT, chest x-ray and head CT are per the History of Present Illness. Followup abdomen and pelvis CT showed: 1. Mild colonic wall thickening which is most prominent in the level of the proximal colon. This may be secondary to nondistention or mild colitis. 2. Trace of free fluid in the pelvis. Chest x-ray showed minimal subsegmental atelectasis in the lung base and right mid lung. DISCHARGE PLAN: The patient will be discharged home in stable condition. She is to resume her previous diet and activity. She is to call [facility] in the morning to schedule a followup visit with Dr. Fitzpatrick to establish care. She needs to see Tammy Gtz for patient assistance at her appointment after Dr. Fitzpatrick. I have left instructions on her discharge paperwork with the telephone number for [facility]. She will resume her Zithromax so I have added Keflex for 7 days as well as Clindamycin for 9 additional days. I did also send some Albuterol to [facility]. She does not have a nebulizer. I told her her choices are to go to [facility] or to [facility] and they are approximately $35.00. Otherwise she can ask Tammy Gtz for assistance when she had her appointment at [facility]. We discussed only taking her own medications and that it would be beneficial to have a GI workup at some point since her main complaints have been abdominal pain. She has seen Dr. Canas in the past, but that has been over 10 years ago, but she has never had a colonoscopy. She is to return to the hospital or call [facility] for any problems or complications. DISCHARGE MEDICATIONS: 1. Xanax. 2. Protonix. 3. Acetaminophen with codeine. 4. Flexeril. 5. Imitrex. 6. Ranitidine. 7. Bystolic. 8. Albuterol sulfate nebs. 9. Cephalexin. 10. Clindamycin. 11. Hyoscyamine. #[id number] [facility]
== END 2018-09-03 12:50 | disposition home or self-care (01) | DRG 917 ==
LOC: ER 19:30 → MS 09-01 09:09
PROVIDERS: ADMIT Nurse Practitioner Acute Care; ATTEND Nurse Practitioner Acute Care
DX: T42.4X1A Poisoning by benzodiazepines, accidental (unintentional), initial encounter (principal); J69.0 Pneumonitis due to inhalation of food and vomit; T40.2X1A Poisoning by other opioids, accidental (unintentional), initial encounter; K52.9 Noninfective gastroenteritis and colitis, unspecified; F41.9 Anxiety disorder, unspecified; F32.9 Major depressive disorder, single episode, unspecified; I10 Essential (primary) hypertension; K21.9 Gastro-esophageal reflux disease without esophagitis; R09.02 Hypoxemia; R47.81 Slurred speech; G89.29 Other chronic pain; R40.2143 Coma scale, eyes open, spontaneous, at hospital admission; R79.89 Other specified abnormal findings of blood chemistry; R40.2243 Coma scale, best verbal response, confused conversation, at hospital admission; R40.2363 Coma scale, best motor response, obeys commands, at hospital admission; Z88.6 Allergy status to analgesic agent; Z88.8 Allergy status to other drugs, medicaments and biological substances; Z87.891 Personal history of nicotine dependence; Z87.11 Personal history of peptic ulcer disease; Z80.0 Family history of malignant neoplasm of digestive organs

== ENCOUNTER 2018-12-05 07:20 | Emergency (ER) | payer OTHER ==
[2018-12-05] MEDS ORDERED: SODIUM CHLORIDE 0.9% (FLUSH) 10 ML SYG IV PRN (07:56)
[2018-12-05] MEDS ORDERED: SODIUM CHLORIDE 0.9% 1000ML 1,000 ML IVS ONE (07:56)
[2018-12-05] MEDS ORDERED: PROMETHAZINE HCL INJ 25 MG in SODIUM CHLORIDE 0.9% 50ML 50 ML IVPB ONE (07:57)
[2018-12-05] MEDS ORDERED: FAMOTIDINE IV PREMIX 20 MG in PREMIX BAG 1 BAG IVPB ONE (07:57)
[2018-12-05] MEDS ORDERED: HYDROcodone 10MG/APAP 325MG 1 EA TAB PO ONE (07:58)
[2018-12-05] MEDS ORDERED: FAMOTIDINE IV PREMIX 50 ML IVPB ONE (08:01)
[2018-12-05] MEDS ORDERED: PROMETHAZINE HCL INJ 25 MG/ML VIAL ONE (08:01)
--- NOTE | 2018-12-05 08:01 | ED.PDOC ---
History of Present Illness - General Chief Complaint: GI Problem Stated Complaint: diarrhea,headache,nausea Time Seen by Provider: 12/05/18 07:49 Source: patient Exam Limitations: no limitations - History of Present Illness Initial Comments: PT PRESENTS TO THE ED WITH COMPLAINT OF WEAKNESS SECONDARY TO MULTIPLE EPISODES OF DIARRHEA OVER THE PAST 4 DAYS. PT ALSO COMPLAINS OF EPIGASTRIC ABDOMINAL PAIN, NAUSEA, AND HEADACHE. PT REPORTS A HISTORY OF IBS AND BLEEDING GASTRIC ULCER IN THE PAST. PT DENIES ANY HEMATEMESIS OR BLACK/BLOODY STOOLS. Severity: moderate Improving Factors: medication - ANASPAZ Worsening Factors: nothing Associated Symptoms: headaches, malaise, nausea/vomiting, weakness Allergies/Adverse Reactions: Allergies Diphenhydramine [From Benadryl] Allergy (Verified 01/27/18 07:54) NSAIDs Allergy (Verified 01/07/18 22:16) Iodine Adverse Reaction (Verified 01/28/17 05:43) Metoclopramide [From Reglan] Adverse Reaction (Verified 01/28/17 05:43) Ondansetron Adverse Reaction (Verified 01/07/18 22:16) Home Medications: Ambulatory Orders Alprazolam [Xanax] 2 mg PO TID PRN 02/05/16 Pantoprazole Tablet [Protonix] 40 mg PO BID 11/06/16 Cyclobenzaprine HCl [Flexeril] 10 mg PO BEDTIME PRN 09/01/18 Sumatriptan Succinate [Imitrex] 100 mg PO DAILY PRN 09/01/18 raNITIdine HCL [Zantac] 150 mg PO DAILY 09/01/18 Albuterol Sulfate Nebs [Proventil Nebs] 2.5 mg NEB RTQ4 PRN #120 vial 09/03/18 Hyoscyamine Sulfate [Anaspaz] 0.125 mg PO Q4H PRN #0 09/03/18 Nebivolol HCl [Bystolic] 2.5 mg PO DAILY 09/03/18 Bisoprolol Fumarate 2.5 mg PO DAILY 12/05/18 Cholestyramine Powder [Questran Powder] 4 gm PO BID 12/05/18 Promethazine Tab [Phenergan Tablet] 25 mg PO Q6H PRN #15 tab 12/05/18 Tramadol HCl 50 mg PO Q6HRS PRN #15 tab 12/05/18 Zolpidem Tartrate [Ambien] 10 mg PO BEDTIME 12/05/18 Review of Systems - Review of Systems Constitutional: Denies: chills, fever EENTM: Denies: nose congestion, throat pain Respiratory: Denies: cough, short of breath Cardiology: Denies: chest pain, palpitations Gastrointestinal/Abdominal: States: see HPI, abdominal pain, diarrhea, nausea. Denies: vomiting Genitourinary: Denies: dysuria, frequency Musculoskeletal: Denies: joint pain, joint swelling Skin: Denies: dryness, lesions Neurological: States: headache. Denies: paresthesia Endocrine: States: no symptoms reported Hematologic/Lymphatic: States: no symptoms reported Past Medical History (General) - Patient Medical History Hx Seizures: No Hx Stroke: No Hx Dementia: No Hx Asthma: No Hx of COPD: No Hx Cardiac Disorders: No Hx Congestive Heart Failure: No Hx Pacemaker: No Hx Hypertension: Yes Hx Thyroid Disease: No Hx Diabetes: No Hx Gastroesophageal Reflux: Yes Hx Renal Disease: No Hx Cancer: No Hx of HIV: No Hx Hepatitis C: No Hx MRSA: No - Vaccination History Hx Tetanus, Diphtheria Vaccination: No Hx Influenza Vaccination: No Hx Pneumococcal Vaccination: No - Social History Hx Tobacco Use: Yes Hx Chewing Tobacco Use: No Hx Alcohol Use: No Hx Substance Use: No Hx Substance Use Treatment: No Hx Depression: Yes Hx Physical Abuse: No Hx Emotional Abuse: No Hx Suspected Abuse: No - Female History Patient : No Family Medical History - Family History Son Family History: No Known Hx Family Cancer: Yes - parents(mom-gastric;dad-unknownt type) Mother Living Status: Cause of : cancer Father Family History: Unknown Living Status: Cause of : cancer Physical Exam - Physical Exam General Appearance: Alert, No apparent distress, Well Developed, Well Groomed, Well Nourished Eye Exam: bilateral normal Ears, Nose, Throat: hearing grossly normal, normal ENT inspection Neck: full range of motion, supple Respiratory: lungs clear, normal breath sounds, no respiratory distress Cardiovascular/Chest: regular rate, rhythm, no murmur Gastrointestinal/Abdominal: soft, tenderness - MILD EPIGASTRIC Extremity: non-tender, normal inspection Neurologic: alert, normal mood/affect, oriented x 3 Skin Exam: normal color, warm/dry Progress - Progress Progress: 12/05/18 10:15 PT REPORTS SOME IMPROVEMENT IN EPIGASTRIC ABD PAIN AFTER PEPCID AND NORCO BUT CONTINUES TO COMPLAIN OF HEADACHE. WILL ORDER LABETALOL FOR BP CONTROL. 12/05/18 12:07 PT FEELING BETTER AFTER GI SLIDER. BP NOW 165/108. LABS AND DIAGNOSTICS DISCUSSED WITH PT AND SPOUSE. - Results/Orders Results/Orders: Laboratory Tests 12/05/18 12/05/18 12/05/18 08:30 08:30 10:38 WBC 3.9 L RBC 4.41 Hgb 12.7 Hct 39.1 MCV 88.8 MCH 28.9 MCHC 32.5 L RDW 17.3 H Plt Count 223 MPV 7.6 Absolute Neuts (auto) 2.30 Absolute Lymphs (auto) 1.10 Absolute Monos (auto) 0.40 Absolute Eos (auto) 0.10 Absolute Basos (auto) 0.00 Neutrophils % 58.7 Lymphocytes % 27.1 Monocytes % 11.6 H Eosinophils % 2.2 Basophils % 0.4 Sodium 141 Potassium 3.3 L Chloride 110 Carbon Dioxide 23 Anion Gap 11.3 L BUN 7 Creatinine 0.71 BUN/Creatinine Ratio 9.9 L Random Glucose 87 Serum Osmolality 278.6 Calcium 9.7 Total Bilirubin < 0.2 L Direct Bilirubin < 0.1 Indirect Bilirubin 0.1 L AST 27 ALT 19 Alkaline Phosphatase 98 Serum Total Protein 7.9 Albumin 4.0 Lipase 42 Urine Color Yellow Urine Appearance Clear Urine pH 6.0 Ur Specific [place] 1.020 Urine Protein Negative Urine Glucose (UA) Negative Urine Ketones Negative Urine Blood Negative Urine Nitrite Negative Urine Bilirubin Negative Urine Urobilinogen 0.2 Ur Leukocyte Esterase Trace H Urine RBC 0-1 Urine WBC 1-3 Ur Epithelial Cells 1-3 Amorphous Sediment Trace Urine Bacteria Rare - EKG/XRAY/CT EKG: Sinus - @63 BPM, NL INTERVALS, NL AXIS, no ST T wave changes, Unchanged from - 09/01/18 Departure - Departure Clinical Impression: Acute diarrhea, Epigastric abdominal pain, Headache, Hypokalemia, Volume depletion, Uncontrolled hypertension Disposition: Discharge to Home or Self Care Condition: Fair Departure Forms: ED Discharge - Pt. Copy, Patient Portal Self Enrollment Instructions: DI for Abdominal Pain-Adult, Irritable Bowel Syndrome (DC) Referrals: [facility] [Primary Care Provider] - 1-5 Days Steven Carey MD [Referring] - 1-2 Weeks Prescriptions: Tramadol HCl 50 mg PO Q6HRS PRN #15 tab PRN Reason: Pain Promethazine Tab [Phenergan Tablet] 25 mg PO Q6H PRN #15 tab PRN Reason: Nausea/Vomiting Home Medications: Ambulatory Orders Alprazolam [Xanax] 2 mg PO TID PRN 02/05/16 Pantoprazole Tablet [Protonix] 40 mg PO BID 11/06/16 Cyclobenzaprine HCl [Flexeril] 10 mg PO BEDTIME PRN 09/01/18 Sumatriptan Succinate [Imitrex] 100 mg PO DAILY PRN 09/01/18 raNITIdine HCL [Zantac] 150 mg PO DAILY 09/01/18 Albuterol Sulfate Nebs [Proventil Nebs] 2.5 mg NEB RTQ4 PRN #120 vial 09/03/18 Hyoscyamine Sulfate [Anaspaz] 0.125 mg PO Q4H PRN #0 09/03/18 Nebivolol HCl [Bystolic] 2.5 mg PO DAILY 09/03/18 Bisoprolol Fumarate 2.5 mg PO DAILY 12/05/18 Cholestyramine Powder [Questran Powder] 4 gm PO BID 12/05/18 Promethazine Tab [Phenergan Tablet] 25 mg PO Q6H PRN #15 tab 12/05/18 Tramadol HCl 50 mg PO Q6HRS PRN #15 tab 12/05/18 Zolpidem Tartrate [Ambien] 10 mg PO BEDTIME 12/05/18
[2018-12-05] MEDS ORDERED: SODIUM CHLORIDE 0.9% 50ML 50 ML ONE (08:02)
[2018-12-05] MEDS ORDERED: POTASSIUM CHLORIDE 20 MEQ TAB PO ONE (09:05)
--- NOTE | 2018-12-05 09:14 | RAD ---
1 radiographic chest. 2. Radiographs of the Abdomen. Indication: ABD PAIN, HISTORY OF PERFORATED PEPTIC ULCER Comparison: August 21, 2017. Impression: Heart size normal. Emphysema with patchy bibasilar atelectasis. Multiple remote bilateral rib fractures. Right shoulder arthroplasty. Multiple surgical clips midline upper abdomen. No free air. Mild constipation without findings of obstruction. No abnormal calcifications. Osteopenia. If this is a new finding, DEXA scan recommended as well as evaluation for possible osteoporosis treatment. Electronically signed by: Mando Foster MD 12/05/2018 9:11 AM CDT
[2018-12-05] MEDS ORDERED: LABETALOL INJ 5 MG/ML VIAL IV ONE (10:23)
[2018-12-05] MEDS ORDERED: ALUM & MAG HYDROX-SIMETHICONE 30 ML, LIDOCAINE VISCOUS 2% 15 ML PO ONE ×2 (10:58)
[2018-12-05] MEDS ORDERED: LIDOCAINE HCL 2% (MOUTH-THROAT) 15 ML UD ONE (11:05)
[2018-12-05] MEDS ORDERED: ALUM & MAG HYDROX-SIMETHICONE 30 ML UD ONE (11:05)
[2018-12-05 12:30] VITALS: BP 156/108; TEMP 98.4; O2SAT 95
== END 2018-12-05 12:29 | disposition home or self-care (01) ==
LOC: ER 07:20
DX: R19.7 Diarrhea, unspecified (principal); R10.13 Epigastric pain; R51 Headache; E87.6 Hypokalemia; I10 Essential (primary) hypertension; E86.9 Volume depletion, unspecified; K58.9 Irritable bowel syndrome, unspecified; F32.9 Major depressive disorder, single episode, unspecified; K21.9 Gastro-esophageal reflux disease without esophagitis; Z87.11 Personal history of peptic ulcer disease; Z87.891 Personal history of nicotine dependence; Z79.899 Other long term (current) drug therapy; Z88.8 Allergy status to other drugs, medicaments and biological substances; Z88.6 Allergy status to analgesic agent; Z91.041 Radiographic dye allergy status
CPT/HCPCS: 36415; 74019; 80048; 80076; 81001; 83690; 85025; 93005; A4216; J2550; J3490; J7030

== ENCOUNTER 2019-01-30 06:31 | Emergency (ER) | payer OTHER ==
--- NOTE | 2019-01-30 07:03 | ED.PDOC ---
History of Present Illness - General Source: patient Exam Limitations: no limitations - History of Present Illness Initial Comments: the patient is a 63-year-old female presenting to the emergency room secondary to diarrhea persisted over the last 3-4 days. Mild abdominal cramping. She is also having some lower extremity cramps as well. She does have a history of some low potassium and low magnesium in the past. She denies running out of any medications. She has been taking some Imodium and apparently did just finish a course of metronidazole. No fever. No nausea or vomiting at this point which she has had frequently in the past. She is mainly here for diarrhea and the extremity cramps. She reports having 11 small episodes of diarrhea last night. She does have significant history of hemorrhoids. She denies blood in stool. Timing/Duration: other - pproximately 3 days Severity: moderate Improving Factors: nothing Worsening Factors: nothing Associated Symptoms: loss of appetite, malaise <Amos Mcnair - Last Filed: 01/30/19 07:00> <Ignacio Schaffer - Last Filed: 01/30/19 11:04> - General Chief Complaint: GI Problem Stated Complaint: diarrhea 3-4 days, headache, leg cramps Time Seen by Provider: 01/30/19 06:41 - History of Present Illness Allergies/Adverse Reactions: Allergies Diphenhydramine [From Benadryl] Allergy (Verified 01/30/19 06:46) NSAIDs Allergy (Verified 01/20/19 15:02) Iodine Adverse Reaction (Verified 01/30/19 06:46) Metoclopramide [From Reglan] Adverse Reaction (Verified 01/20/19 15:02) Ondansetron Adverse Reaction (Verified 01/30/19 06:46) Home Medications: Ambulatory Orders RX: Alprazolam [Xanax] 2 mg PO TID PRN 02/05/16 RX: Cyclobenzaprine HCl [Flexeril] 10 mg PO BEDTIME PRN 09/01/18 RX: Sumatriptan Succinate [Imitrex] 100 mg PO PRN PRN MDD 1 in 24hr 09/01/18 RX: raNITIdine HCL [Zantac] 150 mg PO DAILY 09/01/18 RX: Bisoprolol Fumarate 2.5 mg PO DAILY 12/05/18 RX: Cholestyramine Powder [Questran Powder] 4 gm PO BID 12/05/18 RX: Zolpidem Tartrate [Ambien] 10 mg PO BEDTIME 12/05/18 RX: Albuterol Sulfate Nebs [Proventil Nebs] 2.5 mg NEB PRN PRN 01/20/19 RX: Hyoscyamine Sulfate [Anaspaz] 0.125 mg PO PRN PRN 01/20/19 RX: Acetamin W/Cod #3 Tab [Tylenol w/CODEINE #3] 1 ea PO Q4H PRN #20 tab 01/21/19 RX: Cefdinir 300 mg PO BID #16 capsule 01/21/19 Sucralfate Tab [Carafate Tab] 1 gm PO ACHS #1 tablet 01/21/19 Review of Systems - Review of Systems Review of Systems: 01/30/19 07:02 review of systems for new symptoms only. Constitutional: States: malaise EENTM: States: no symptoms reported Respiratory: States: no symptoms reported Cardiology: States: no symptoms reported Gastrointestinal/Abdominal: States: diarrhea Genitourinary: States: no symptoms reported Musculoskeletal: States: no symptoms reported Skin: States: no symptoms reported Neurological: States: anxiety Endocrine: States: no symptoms reported All other Systems: No Change from Baseline <Amos Mcnair - Last Filed: 01/30/19 07:00> Past Medical History (General) - Patient Medical History Hx Seizures: No Hx Stroke: No Hx Dementia: No Hx Asthma: No Hx of COPD: No Hx Cardiac Disorders: No Hx Congestive Heart Failure: No Hx Pacemaker: No Hx Hypertension: No Hx Thyroid Disease: No Hx Diabetes: No Hx Gastroesophageal Reflux: No Hx Renal Disease: No Hx Cancer: No Hx of HIV: No Hx Hepatitis C: No Hx MRSA: No Surgical History: other - Vaccination History Hx Tetanus, Diphtheria Vaccination: No Hx Influenza Vaccination: No Hx Pneumococcal Vaccination: No - Social History Hx Tobacco Use: Yes Hx Chewing Tobacco Use: No Hx Alcohol Use: No Hx Substance Use: No Hx Substance Use Treatment: No Hx Depression: Yes Hx Physical Abuse: No Hx Emotional Abuse: No Hx Suspected Abuse: No - Female History Patient : No <Amos Mcnair - Last Filed: 01/30/19 07:00> Family Medical History - Family History Father Family History: Unknown Living Status: Cause of : cancer Mother Living Status: Cause of : cancer Son Family History: No Known Hx Family Cancer: Yes - parents(mom-gastric;dad-unknownt type) <Amos Mcnair - Last Filed: 01/30/19 07:00> Physical Exam - Physical Exam General Appearance: Alert, Comfortable, No apparent distress Eye Exam: bilateral normal Ears, Nose, Throat: hearing grossly normal, normal ENT inspection Neck: full range of motion, supple Respiratory: lungs clear, normal breath sounds, no respiratory distress, no accessory muscle use Cardiovascular/Chest: normal peripheral pulses, no edema, tachycardia - mild Peripheral Pulses: radial,right: 2+, radial,left: 2+, dorsalis pedis,right: 2+, dorsalis pedis,left: 2+ Gastrointestinal/Abdominal: non tender - active bowel sounds. No rebound or peritoneal signs. No definite palpable mass., soft Rectal Exam: deferred Back Exam: no CVA tenderness, no vertebral tenderness Extremity: non-tender, normal inspection, no pedal edema, normal capillary refill Neurologic: dial painter II-XII nml as tested, alert, oriented x 3 Skin Exam: normal color Comments: Vital Signs - 24 hr 01/30/19 06:39 Temperature 99.6 F Pulse Rate [ 107 H monitor] Respiratory 20 Rate Blood Pressure 96/69 [Left Arm] O2 Sat by Pulse 97 Oximetry <Amos Mcnair - Last Filed: 01/30/19 07:00> Progress - Progress Progress: 01/30/19 07:03 the patient is a 63-year-old female presenting to the emergency room secondary to diarrhea and muscle cramps. Laboratory work and x-ray has been ordered. The patient will be followed by the oncoming ER physician. <Amos Mcnair - Last Filed: 01/30/19 07:00> - Progress Progress: 01/30/19 07:[address] Mcnair. Pending lab results. 01/30/19 08:30 Patient updated on lab results. Pending stool studies. Will administer anti- emetic and GI cocktail. 01/30/19 09:00 Notified by nursing staff that patient endorsing headache. Will administer Tylenol 650mg. 01/30/19 09:15 Notified that patient refusing Tylenol as she wants codeine. I discussed with patient that her symptoms are likely form opiate withdrawal and this is not indicated. She is not agitated, diaphoretic or profusely putting out diarrhea. Therefore, we will treat MOSES and abdominal pain with Haldol. EKG ordered prior to administration. 01/30/19 09:23 C. diff studies negative. QT interval WNL. Will administer haldol. Patient updated on stool study results. Will be discharged home after fluid bolus finishes. She will follow-up with PCP for re-evaluation. 01/30/19 10:59 Patient presented for evaluation of diarrhea and cramping to the extremities. She was overall hemodynamically stable. She was non-toxic. Lab work was not significant for acute electrolyte derangement or leukocytosis. She has no recent sick contacts, travel, or fevers. Her diarrhea seems to be more secondary to opiate vs. benzo withdrawal. C diff studies were negative. UA was significant for signs of dehydration and the patient was given a liter of NS. She was given anti-emetics and GI cocktail. For her muscle spasms, she was given Flexeril. Patient made multiple requests for narcotics and for Rx for narcotics. I discussed that this is the etiology of her diarrhea, and it is not appropriate to prescribe narcotics. She was not hypotensive or unstable to require morphine or methadone. I discussed that she needs to talk to her PCP as she is not going to stop taking Narcotics in the future. Patient stated she had a headache and requested Tylenol with Codeine. I discussed the potential for rebound headaches with codeine and how literature does not support narcotic administration for headaches. Patient became upset and pleaded for narcotics. I discussed she could have tylenol without codeine or Haldol. She requested Haldol so EKG was ordered to assess QT intervals. Following normal intervals, Haldol was ordered. After lab work was completed, patient was discharged home with plans for outpatient follow-up. - Results/Orders Results/Orders: Laboratory Tests 01/30/19 01/30/19 01/30/19 07:30 07:30 07:45 WBC 3.9 L RBC 4.12 L Hgb 12.6 Hct 38.0 MCV 92.2 MCH 30.5 MCHC 33.1 RDW 16.3 H Plt Count 257 MPV 7.8 Absolute Neuts (auto) 3.20 Absolute Lymphs (auto) 0.20 L Absolute Monos (auto) 0.50 Absolute Eos (auto) 0.00 Absolute Basos (auto) 0.00 Neutrophils % 82.6 H Lymphocytes % 4.4 L Monocytes % 11.7 H Eosinophils % 1.1 Basophils % 0.2 Sodium 138 Potassium 4.3 Chloride 107 Carbon Dioxide 19 L Anion Gap 16.3 BUN 15 Creatinine 0.68 BUN/Creatinine Ratio 22.1 H Random Glucose 94 Serum Osmolality 276.3 Calcium 8.7 Magnesium 1.8 Total Bilirubin 0.3 AST 20 ALT 14 Alkaline Phosphatase 80 Serum Total Protein 8.0 Albumin 3.9 Globulin 4.1 H Albumin/Globulin Ratio 1.0 L Amylase 167 H Lipase 31 Urine Color Yellow Urine Appearance Clear Urine pH 5.5 Ur Specific [place] 1.025 Urine Protein Negative Urine Glucose (UA) Negative Urine Ketones Trace Urine Blood Negative Urine Nitrite Negative Urine Bilirubin Negative Urine Urobilinogen 0.2 Ur Leukocyte Esterase Negative Urine RBC 0 Urine WBC 0-1 Ur Epithelial Cells 1-3 Calcium Oxalate Crystal 4+ Amorphous Sediment 1+ Urine Bacteria 0 XR Abdomen: Air fluid levels suggestive of improved ileus vs. diarrhea. - EKG/XRAY/CT EKG: Sinus, no ST T wave changes <Ignacio Schaffer - Last Filed: 01/30/19 11:04> Departure <Amos Mcnair - Last Filed: 01/30/19 07:00> - Departure Diet: bland diet Activity: increase activity as tolerated Comments: Ta Haider #[id number] <Ignacio Schaffer - Last Filed: 01/30/19 11:04> - Departure Clinical Impression: Muscle cramps Diarrhea Qualifiers: Diarrhea type: unspecified type Qualified Code(s): R19.7 - Diarrhea, unspecified Disposition: Discharge to Home or Self Care Condition: Good Departure Forms: ED Discharge - Pt. Copy, Patient Portal Self Enrollment Instructions: Diarrhea in Adolescents and Adults, [place] Diet Referrals: GIORGI ANGELES [Primary Care Provider] - 1-2 Weeks Home Medications: Ambulatory Orders RX: Alprazolam [Xanax] 2 mg PO TID PRN 02/05/16 RX: Cyclobenzaprine HCl [Flexeril] 10 mg PO BEDTIME PRN 09/01/18 RX: Sumatriptan Succinate [Imitrex] 100 mg PO PRN PRN MDD 1 in 24hr 09/01/18 RX: raNITIdine HCL [Zantac] 150 mg PO DAILY 09/01/18 RX: Bisoprolol Fumarate 2.5 mg PO DAILY 12/05/18 RX: Cholestyramine Powder [Questran Powder] 4 gm PO BID 12/05/18 RX: Zolpidem Tartrate [Ambien] 10 mg PO BEDTIME 12/05/18 RX: Albuterol Sulfate Nebs [Proventil Nebs] 2.5 mg NEB PRN PRN 01/20/19 RX: Hyoscyamine Sulfate [Anaspaz] 0.125 mg PO PRN PRN 01/20/19 RX: Acetamin W/Cod #3 Tab [Tylenol w/CODEINE #3] 1 ea PO Q4H PRN #20 tab 01/21/19 RX: Cefdinir 300 mg PO BID #16 capsule 01/21/19 Sucralfate Tab [Carafate Tab] 1 gm PO ACHS #1 tablet 01/21/19
--- NOTE | 2019-01-30 07:43 | RAD ---
EXAM DESCRIPTION: Abdomen Series CLINICAL HISTORY: diarrhea, abd cramps, extremity cramps COMPARISON: January 21, 2019 FINDINGS: AP supine and upright views of the abdomen show air-filled dilated stomach. Air is seen throughout the colon with scattered air-fluid levels most prominent than previous exam. No free intraperitoneal air. No air-filled dilated loops of small bowel. Surgical clips in the mid left epigastric region. Single AP upright view of the chest shows cardiac silhouette to be mildly enlarged without pulmonary vascular congestion. Tortuosity the thoracic aorta. Lungs are normally aerated and clear. Remote appearing bilateral rib fractures. Right shoulder arthroplasty changes. IMPRESSION: Nonspecific abdominal series. Air-fluid levels throughout the colon suggests possible diarrhea state versus ileus improved from previous. Electronically signed by: Horacio Crowe MD 01/30/2019 7:41 AM CDT
[2019-01-30] MEDS ORDERED: ALUM & MAG HYDROX-SIMETHICONE 30 ML, LIDOCAINE VISCOUS 2% 15 ML PO ONE ×2 (07:46)
[2019-01-30] MEDS ORDERED: PROMETHAZINE HCL INJ 12.5 MG in SODIUM CHLORIDE 0.9% 50ML 50 ML IVPB ONE (07:46)
[2019-01-30] MEDS ORDERED: PROMETHAZINE HCL INJ 25 MG/ML VIAL ONE (08:06)
[2019-01-30] MEDS ORDERED: LIDOCAINE HCL 2% (MOUTH-THROAT) 15 ML UD ONE (08:07)
[2019-01-30] MEDS ORDERED: ALUM & MAG HYDROX-SIMETHICONE 30 ML UD ONE (08:07)
[2019-01-30] MEDS ORDERED: SODIUM CHLORIDE 0.9% 50ML 50 ML ONE (08:07)
[2019-01-30] MEDS ORDERED: SODIUM CHLORIDE 0.9% 1000ML 1,000 ML IVS ONE (08:15)
[2019-01-30] MEDS ORDERED: CYCLOBENZAPRINE HCL 10 MG TAB PO ONE (08:26)
[2019-01-30] MEDS ORDERED: ACETAMINOPHEN 325 MG TAB PO ONE (08:54)
[2019-01-30] MEDS ORDERED: HALOPERIDOL LACTATE INJ 5 MG/ML VIAL IV ONE (09:09)
[2019-01-30 10:01] VITALS: BP 98/66; TEMP 98.7; O2SAT 97
== END 2019-01-30 09:40 | disposition home or self-care (01) ==
LOC: ER 06:31
DX: R19.7 Diarrhea, unspecified (principal); R25.2 Cramp and spasm; R51 Headache; R10.9 Unspecified abdominal pain; F32.9 Major depressive disorder, single episode, unspecified; Z87.891 Personal history of nicotine dependence; Z79.899 Other long term (current) drug therapy; Z88.6 Allergy status to analgesic agent; Z88.8 Allergy status to other drugs, medicaments and biological substances; Z91.041 Radiographic dye allergy status
CPT/HCPCS: 36415; 74019; 80053; 81001; 82150; 83690; 83735; 85025; 87324; 87449; 93005; A4216; J1630; J2550; J7030

== ENCOUNTER 2019-03-10 11:51 | Emergency (ER) | payer OTHER ==
[2019-03-10] MEDS ORDERED: PANTOPRAZOLE SODIUM IV 40 MG VIAL IV ONE (12:08)
[2019-03-10] MEDS ORDERED: SODIUM CHLORIDE 0.9% (FLUSH) 10 ML SYG IV PRN (12:08)
[2019-03-10] MEDS ORDERED: SODIUM CHLORIDE 0.9% 1000ML 1,000 ML IVS PRN (12:10)
--- NOTE | 2019-03-10 12:15 | ED.PDOC ---
History of Present Illness - General Time Seen by Provider: 03/10/19 12:06 Source: RN notes reviewed, Vital Signs reviewed, EMS notes reviewed, old records Exam Limitations: clinical condition - History of Present Illness Initial Comments: 63 yo F with PMH of chronic pain, gastritis and previous upper GI bleed presents via EMS for vomitng blood and unresponsiveness. Per EMS, found patient minimally responsive in bed at home with tarry colored emesis in bed. She was responsive to pain only during transport. Pt unable to give further history. Timing/Duration: unsure Allergies/Adverse Reactions: Allergies Diphenhydramine [From Benadryl] Allergy (Verified 01/30/19 06:46) NSAIDs Allergy (Verified 01/20/19 15:02) Iodine Adverse Reaction (Verified 01/30/19 06:46) Metoclopramide [From Reglan] Adverse Reaction (Verified 01/20/19 15:02) Ondansetron Adverse Reaction (Verified 01/30/19 06:46) Home Medications: Ambulatory Orders Alprazolam [Xanax] 2 mg PO TID PRN 02/05/16 Cyclobenzaprine HCl [Flexeril] 10 mg PO BEDTIME PRN 09/01/18 Sumatriptan Succinate [Imitrex] 100 mg PO PRN PRN MDD 1 in 24hr 09/01/18 raNITIdine HCL [Zantac] 150 mg PO DAILY 09/01/18 Bisoprolol Fumarate 2.5 mg PO DAILY 12/05/18 Cholestyramine Powder [Questran Powder] 4 gm PO BID 12/05/18 Zolpidem Tartrate [Ambien] 10 mg PO BEDTIME 12/05/18 Albuterol Sulfate Nebs [Proventil Nebs] 2.5 mg NEB PRN PRN 01/20/19 Hyoscyamine Sulfate [Anaspaz] 0.125 mg PO PRN PRN 01/20/19 Acetamin W/Cod #3 Tab [Tylenol w/CODEINE #3] 1 ea PO Q4H PRN #20 tab 01/21/19 Cefdinir 300 mg PO BID #16 capsule 01/21/19 Sucralfate Tab [Carafate Tab] 1 gm PO ACHS #1 tablet 01/21/19 Review of Systems - Review of Systems Unable to Obtain Due To: clinical condition, other - Pt moans, but does not answer questions Past Medical History (General) - Patient Medical History Hx Seizures: No Hx Stroke: No Hx Dementia: No Hx Asthma: No Hx of COPD: No Hx Cardiac Disorders: No Hx Congestive Heart Failure: No Hx Pacemaker: No Hx Hypertension: No Hx Thyroid Disease: No Hx Diabetes: No Hx Gastroesophageal Reflux: No Hx Renal Disease: No Hx Cancer: No Hx of HIV: No Hx Hepatitis C: No Hx MRSA: No - Vaccination History Hx Tetanus, Diphtheria Vaccination: No Hx Influenza Vaccination: No Hx Pneumococcal Vaccination: No - Social History Hx Tobacco Use: Yes Hx Chewing Tobacco Use: No Hx Alcohol Use: No Hx Substance Use: No Hx Substance Use Treatment: No Hx Depression: Yes Hx Physical Abuse: No Hx Emotional Abuse: No Hx Suspected Abuse: No - Female History Patient : No Family Medical History - Family History Son Family History: No Known Hx Family Cancer: Yes - parents(mom-gastric;dad-unknownt type) Mother Living Status: Cause of : cancer Father Family History: Unknown Living Status: Cause of : cancer Physical Exam - Physical Exam General Appearance: Ill Appearing, Unkempt, Other - Py lying on gurney with head turned to left. Does not answr questions., Moans to pain Eye Exam: bilateral normal - Pupils 6 mm and sluggish Ears, Nose, Throat: other - Dark colored fluid to lips and tongue Neck: non-tender, other - Turned to left Respiratory: lungs clear, normal breath sounds, no respiratory distress, no accessory muscle use Cardiovascular/Chest: normal peripheral pulses, regular rate, rhythm, no edema, no JVD Gastrointestinal/Abdominal: non tender, soft, other - Abd sont, NT, ND, no guarding Rectal Exam: other - Normal tone. No hemorrhoids. Black stool Back Exam: normal inspection, no CVA tenderness, no vertebral tenderness Extremity: non-tender, other - no deformity Neurologic: other - Moans and withdrawls to pain. Does not follow commands Skin Exam: normal color Progress - Progress Progress: 03/10/19 12:23 EKG NSR, rate 99, nml intervals, nonspecific ST abnormality 03/10/19 13:16 Recheck patient. She is more alert and shakes head yes or no to questions. Does not answer verbally. No abdominal tenderness on exam. H/H stable from previous. Platlets and Coags normal. BUN elevated. CT brain and CXR unremarkable. Family states she has h/o bleeding gastric ulcer in the past. I am concerned for gastritis vs ulcer with bleeding causing her symptoms and hematemesis. I have started Protonix and will transfer for GI evaluation. 03/10/19 14:[address] Morgan. Accepts transfer to [facility]. - Results/Orders Results/Orders: 03/10/19 12:08 IV Care:Saline Lock per Protoc QSHIFT Sodium Chloride 0.9% (Flush) [Saline Flush Syringe] 10 ml IV PRN PRN 03/10/19 12:10 URINE DRUG SCREEN, 7 ASSAY Stat Sodium Chloride 0.9% 1000ML [Ns 1000 ml] 1,000 ml IVS .QD URINALYSIS Stat 03/10/19 12:15 EKG STAT 03/10/19 12:21 stool [FECAL OCCULT BLOOD] Stat Laboratory Results - last 24 hr 03/10/19 03/10/19 03/10/19 12:23 12:23 12:23 WBC 8.4 RBC 4.49 Hgb 12.4 Hct 38.6 MCV 85.9 MCH 27.7 MCHC 32.2 L RDW 16.4 H Plt Count 349 MPV 7.2 L Absolute Neuts (auto) 6.80 Absolute Lymphs (auto) 0.60 L Absolute Monos (auto) 1.00 H Absolute Eos (auto) 0.00 Absolute Basos (auto) 0.00 Neutrophils % 81.2 H Lymphocytes % 7.1 L Monocytes % 11.4 H Eosinophils % 0.0 L Basophils % 0.3 PT 9.5 INR 0.95 PTT (SP) 23.6 Sodium 143 Potassium 3.5 L Chloride 101 Carbon Dioxide 22 Anion Gap 23.5 H BUN 38 H Creatinine 0.97 BUN/Creatinine Ratio 39.2 H Random Glucose 132 H Serum Osmolality 295.9 H Calcium 10.0 Creatine Kinase CK-MB (CK-2) CK-MB (CK-2) % Troponin I Amylase 267 H* Lipase 27 Salicylates Acetaminophen Ethyl Alcohol 03/10/19 03/10/19 12:23 12:23 WBC RBC Hgb Hct MCV MCH MCHC RDW Plt Count MPV Absolute Neuts (auto) Absolute Lymphs (auto) Absolute Monos (auto) Absolute Eos (auto) Absolute Basos (auto) Neutrophils % Lymphocytes % Monocytes % Eosinophils % Basophils % PT INR PTT (SP) Sodium Potassium Chloride Carbon Dioxide Anion Gap BUN Creatinine BUN/Creatinine Ratio Random Glucose Serum Osmolality Calcium Creatine Kinase 28 CK-MB (CK-2) 1.2 CK-MB (CK-2) % Not Reportable Troponin I 0.03 Amylase Lipase Salicylates 2.6 Acetaminophen < 10.0 L Ethyl Alcohol < 5.40 HISTORY: 63 years Female, decreased LOC COMPARISON: 01/21/2019. TECHNIQUE: AP portable chest. FINDINGS/IMPRESSION: Patient is slightly rotated. Mild central pulmonary vascular congestion. Mild left basilar subsegmental atelectasis. No focal consolidation, significant pneumothorax or pleural effusion seen. The heart is borderline large. Chronic left lower rib fractures, unchanged. Right shoulder arthroplasty. Electronically signed by: Anthony Hogue DO 03/10/2019 1:06 PM CDT EXAM DESCRIPTION: Head CLINICAL HISTORY: Decreased LOC COMPARISON: CT head 08/31/2018 TECHNIQUE: Non contrast cranial CT with multiplanar reconstructions. FINDINGS: No acute intracranial hemorrhage, transcortical infarct, mass or mass effect. No focal edema or midline shift. The ventricle and sulci are mildly prominent, likely age-related. No hydrocephalus. The diop-white matter differentiation is intact. No displaced calvarial fracture. The visualized paranasal sinuses and the mastoids are clear. IMPRESSION: 1. No acute intracranial abnormality. Departure - Departure Clinical Impression: Decreased level of consciousness, Upper gastrointestinal bleeding Hematemesis Qualifiers: Nausea presence: unspecified Qualified Code(s): K92.0 - Hematemesis Time of Disposition: 14:31 Disposition: Transfer to Hospital Condition: Fair Referrals: GIORGI ANGELES [Primary Care Provider] - 1-2 Weeks Home Medications: Ambulatory Orders Alprazolam [Xanax] 2 mg PO TID PRN 02/05/16 Cyclobenzaprine HCl [Flexeril] 10 mg PO BEDTIME PRN 09/01/18 Sumatriptan Succinate [Imitrex] 100 mg PO PRN PRN MDD 1 in 24hr 09/01/18 raNITIdine HCL [Zantac] 150 mg PO DAILY 09/01/18 Bisoprolol Fumarate 2.5 mg PO DAILY 12/05/18 Cholestyramine Powder [Questran Powder] 4 gm PO BID 12/05/18 Zolpidem Tartrate [Ambien] 10 mg PO BEDTIME 12/05/18 Albuterol Sulfate Nebs [Proventil Nebs] 2.5 mg NEB PRN PRN 01/20/19 Hyoscyamine Sulfate [Anaspaz] 0.125 mg PO PRN PRN 01/20/19 Acetamin W/Cod #3 Tab [Tylenol w/CODEINE #3] 1 ea PO Q4H PRN #20 tab 01/21/19 Cefdinir 300 mg PO BID #16 capsule 01/21/19 Sucralfate Tab [Carafate Tab] 1 gm PO ACHS #1 tablet 01/21/19 Transfer to Outside Facility - Transfer Information Decision to Transfer Date: 03/10/19 Decision to Transfer Time: 14:31 Reason for Transfer: Upper GI bleed, need for GI evaluation Accepting Provider:: Dr. Morgan Accepting Facility: [facility]
--- NOTE | 2019-03-10 13:07 | RAD ---
EXAM DESCRIPTION: Chest,1 View CLINICAL HISTORY: 63 years Female, decreased LOC COMPARISON: 01/21/2019. TECHNIQUE: AP portable chest. FINDINGS/IMPRESSION: Patient is slightly rotated. Mild central pulmonary vascular congestion. Mild left basilar subsegmental atelectasis. No focal consolidation, significant pneumothorax or pleural effusion seen. The heart is borderline large. Chronic left lower rib fractures, unchanged. Right shoulder arthroplasty. Electronically signed by: Anthony Hogue DO 03/10/2019 1:06 PM CDT
--- NOTE | 2019-03-10 13:11 | CT ---
EXAM DESCRIPTION: Head CLINICAL HISTORY: Decreased LOC COMPARISON: CT head 08/31/2018 TECHNIQUE: Non contrast cranial CT with multiplanar reconstructions. FINDINGS: No acute intracranial hemorrhage, transcortical infarct, mass or mass effect. No focal edema or midline shift. The ventricle and sulci are mildly prominent, likely age-related. No hydrocephalus. The diop-white matter differentiation is intact. No displaced calvarial fracture. The visualized paranasal sinuses and the mastoids are clear. IMPRESSION: 1. No acute intracranial abnormality. This exam was performed according to our departmental dose-optimization program, which includes automated exposure control, adjustment of the mA and/or kV according to patient size and/or use of iterative reconstruction technique. Electronically signed by: Anthony Hogue DO 03/10/2019 1:10 PM CDT
[2019-03-10 16:02] VITALS: O2SAT 95
[2019-03-10 16:04] VITALS: BP 151/103; TEMP 98.6
== END 2019-03-10 16:23 | disposition short-term general hospital (02) ==
LOC: ER 11:51
DX: K92.0 Hematemesis (principal); R41.82 Altered mental status, unspecified; G89.29 Other chronic pain; F32.9 Major depressive disorder, single episode, unspecified; Z87.891 Personal history of nicotine dependence; Z87.11 Personal history of peptic ulcer disease; Z88.8 Allergy status to other drugs, medicaments and biological substances; Z88.6 Allergy status to analgesic agent; Z91.041 Radiographic dye allergy status; Z79.899 Other long term (current) drug therapy
CPT/HCPCS: 36415; 70450; 71045; 80048; 80320; 80329; 81001; 82150; 82270; 82550; 82553; 83690; 84484; 85025; 85610; 85730; 93005; J7030

== ENCOUNTER 2019-10-17 00:09 | Emergency (ER) | payer OTHER, SELFPAY ==
[2019-10-17 00:24] VITALS: TEMP 98.8
[2019-10-17] MEDS: SODIUM CHLORIDE 0.9% (FLUSH) 10 ML SYG IV PRN (00:26)
[2019-10-17] MEDS: SODIUM CHLORIDE 0.9% 1000ML 1,000 ML IVS PRN (00:28)
--- NOTE | 2019-10-17 00:28 | ED.PDOC ---
History of Present Illness - General Chief Complaint: GI Problem Stated Complaint: n/v Time Seen by Provider: 10/17/19 00:21 Information Source: patient, family Exam Limitations: no limitations Additional Information: The patient is a 64 year old with PMH significant for chronic pain, peptic ulcer disease with prior upper GI bleeding who presents to the ED with nausea. The patient's son states that she has been more fatigued over the past two weeks and spending most of her time in bed although the patient denies this. She does acknowledge generalized weakness and some fatigue. She has felt very nauseated and today she vomited twice. She denies hematemesis as well as black/bloody stools. She denies any pain at this time. No fevers, recent travel or known sick contacts. No other history is currently available. Review of Systems - Review of Systems Constitutional: States: malaise, weakness EENTM: States: no symptoms reported Respiratory: States: no symptoms reported Cardiology: Denies: chest pain, palpitations Gastrointestinal/Abdominal: States: nausea, vomiting. Denies: abdominal pain, constipation, diarrhea Genitourinary: Denies: dysuria, frequency, hematuria Musculoskeletal: States: no symptoms reported Skin: States: no symptoms reported Neurological: States: no symptoms reported Endocrine: States: no symptoms reported Hematologic/Lymphatic: States: no symptoms reported Past Medical History (General) - Patient Medical History Hx Seizures: No Hx Stroke: No Hx Dementia: No Hx Asthma: No Hx of COPD: No Hx Cardiac Disorders: No Hx Congestive Heart Failure: No Hx Pacemaker: No Hx Hypertension: No Hx Thyroid Disease: No Hx Diabetes: No Hx Gastroesophageal Reflux: No - hx gastric ulcers Hx Renal Disease: No Hx Cancer: No Hx of HIV: No Hx Hepatitis C: No Hx MRSA: No Surgical History: other - Vaccination History Hx Tetanus, Diphtheria Vaccination: No Hx Influenza Vaccination: No Hx Pneumococcal Vaccination: No Immunizations Up to Date: No - Social History Hx Tobacco Use: Yes Hx Chewing Tobacco Use: No Hx Alcohol Use: Yes - occ Hx Substance Use: No Hx Substance Use Treatment: No Hx Depression: Yes Hx Physical Abuse: No Hx Emotional Abuse: No Hx Suspected Abuse: No - Female History Patient : No Family Medical History - Family History Son Family History: No Known Hx Family Cancer: Yes - parents(mom-gastric;dad-unknownt type) Mother Living Status: Cause of : cancer Father Family History: Unknown Living Status: Cause of : cancer Physical Exam - Physical Exam General Appearance: Anxious, Frail, No apparent distress Eyes, Ears, Nose, Throat Exam: normal ENT inspection Neck: non-tender, full range of motion, supple, normal inspection Respiratory: lungs clear, normal breath sounds, no respiratory distress Cardiovascular/Chest: normal peripheral pulses, regular rate, rhythm, no murmur Gastrointestinal/Abdominal: non tender, soft Extremity: normal range of motion Neurologic: no motor/sensory deficits, normal mood/affect, oriented x 3 Skin Exam: normal color, warm/dry Progress - Progress Progress: 10/17/19 01:55 Patient reassessed, she states that her nausea has improved since she received the phenergan and she has been sleeping for most of her ED visit. She refuses and blood draws or labs at this time. Her abdominal exam is benign and she says that she is not currently having any pain. Will continue outpatient symptomatic management. She understands that she is welcome to return to the ED at any point to continue treatment. Departure - Departure Clinical Impression: Essential (primary) hypertension Time of Disposition: 01:57 Disposition: Discharge to Home or Self Care Condition: Fair Departure Forms: ED Discharge - Pt. Copy, Patient Portal Self Enrollment Instructions: Nausea and Vomiting, Adult (DC) Diet: full liquid diet - advance as tolerated Referrals: Aram Fitzpatrick MD [Primary Care Provider] - 1-2 Weeks Prescriptions: Promethazine Tab [Phenergan Tablet] 25 mg PO .Q4H #30 tab Home Medications: Ambulatory Orders Alprazolam [Xanax] 2 mg PO TID PRN 02/05/16 Cyclobenzaprine HCl [Flexeril] 10 mg PO BEDTIME PRN 09/01/18 Sumatriptan Succinate [Imitrex] 100 mg PO PRN PRN MDD 1 in 24hr 09/01/18 raNITIdine HCL [Zantac] 150 mg PO DAILY 09/01/18 Bisoprolol Fumarate 2.5 mg PO DAILY 12/05/18 Cholestyramine Powder [Questran Powder] 4 gm PO BID 12/05/18 Zolpidem Tartrate [Ambien] 10 mg PO BEDTIME 12/05/18 Albuterol Sulfate Nebs [Proventil Nebs] 2.5 mg NEB PRN PRN 01/20/19 Hyoscyamine Sulfate [Anaspaz] 0.125 mg PO PRN PRN 01/20/19 Acetamin W/Cod #3 Tab [Tylenol w/CODEINE #3] 1 ea PO Q4H PRN #20 tab 01/21/19 Cefdinir 300 mg PO BID #16 capsule 01/21/19 Sucralfate Tab [Carafate Tab] 1 gm PO ACHS #1 tablet 01/21/19 Promethazine Tab [Phenergan Tablet] 25 mg PO .Q4H #30 tab 10/17/19
[2019-10-17] MEDS: PROMETHAZINE HCL INJ 25 MG/ML VIAL IM ONE ×2 (00:29→02:02)
[2019-10-17 01:13] VITALS: BP 172/106; O2SAT 97
== END 2019-10-17 02:10 | disposition home or self-care (01) ==
LOC: ER 00:09
DX: I10 Essential (primary) hypertension (principal); R11.2 Nausea with vomiting, unspecified
CPT/HCPCS: 93005; A4216; J2550; J7030

== ENCOUNTER 2019-10-18 19:28 | Observation (INO) | payer OTHER, SELFPAY ==
[2019-10-18] MEDS ORDERED: SODIUM CHLORIDE 0.9% 1000ML 1,000 ML IVS ONE (19:59)
[2019-10-18] MEDS ORDERED: PROMETHAZINE HCL INJ 12.5 MG in SODIUM CHLORIDE 0.9% 50ML 50 ML IVPB ONE ×2 (19:59→23:07)
[2019-10-18] MEDS ORDERED: BUTORPHANOL TARTRATE 2 MG/ML VIAL IV ONE (19:59)
[2019-10-18] MEDS ORDERED: PANTOPRAZOLE INJECTION 40 MG in SODIUM CHLORIDE 0.9% 100ML 100 ML IVPB ONE (19:59)
[2019-10-18] MEDS ORDERED: MAGNESIUM SULFATE PREMIX 2GM 2 GM in PREMIX BAG 1 BAG IVPB ONE (20:34)
[2019-10-18] MEDS ORDERED: KCL 20MEQ/WATER FOR INJ 100ML 20 MEQ in PREMIX BAG 1 BAG IVPB ONE (20:34)
[2019-10-18] MEDS ORDERED: KCL 20MEQ/WATER FOR INJ 100ML 100 ML IVPB ONE (20:39)
[2019-10-18] MEDS ORDERED: MAGNESIUM SULFATE PREMIX 2GM 50 ML IVPB ONE (20:40)
--- NOTE | 2019-10-18 20:40 | RAD ---
EXAM: XR Abdomen, 2 Views and XR Chest, 1 View CLINICAL HISTORY: nv, abd pain TECHNIQUE: Frontal view of the chest, frontal view of the abdomen/pelvis and upright or decubitus view of the abdomen. COMPARISON: 01/30/2019. FINDINGS: Lungs: Unremarkable. No consolidation. Pleural space: Unremarkable. No pneumothorax. Heart: Unremarkable. No cardiomegaly. Mediastinum: Unremarkable. Intraperitoneal space: No free air. Gastrointestinal tract: Air and small to moderate amounts of stool scattered throughout the intestinal tract without distention. Bones/joints: Old bilateral rib fractures present. Right shoulder arthroplasty intact. IMPRESSION: No acute findings in the chest, abdomen or pelvis. Electronically signed by: Yessenia Padilla MD 10/18/2019 8:39 PM CDT
[2019-10-18] MEDS ORDERED: RISPERIDONE 0.25 MG PO SCH (21:00)
[2019-10-18] MEDS ORDERED: DIVALPROEX SODIUM ER 250 MG TAB PO SCH (21:00)
[2019-10-18] MEDS ORDERED: busPIRone HCL 5 MG TAB PO SCH (21:00)
[2019-10-18] MEDS ORDERED: NON-FORMULARY MEDICATION 1 EA MIS (Bisoprolol Fumarate [Bisoprolol Fumarate] 5 MG) PO SCH (21:00)
[2019-10-18] MEDS ORDERED: NON-FORMULARY MEDICATION 1 EA MIS (Propranolol Hcl [Propranolol Hcl] 40 MG) PO SCH (21:00)
[2019-10-18] MEDS ORDERED: traZODone HCL 50 MG TAB PO SCH (21:00)
--- NOTE | 2019-10-18 21:56 | ED.PDOC ---
History of Present Illness - General Chief Complaint: GI Problem Stated Complaint: I've been throwing up constantly Time Seen by Provider: 10/18/19 19:33 Source: patient Exam Limitations: no limitations - History of Present Illness Initial Comments: The patient is a 64-year-old female presented emergency room secondary to what she reports as abdominal pain with nausea and vomiting for the last 3 to 4 weeks. The patient does have a longstanding history of abdominal pain and nausea and vomiting. Most of the work-up I see here has pointed more towards gastritis and mild gastric outlet recurrent obstructions related to inflammation. Compliance with medications in the past has been an issue. Additionally drug-seeking behavior in the past has been an issue. Patient was seen here a few days ago secondary to abdominal pain. She was given IV fluids as well as IV Phenergan but refused a blood draw or further work-up. She went home and continued to have reported epigastric abdominal pain and recurrent nausea and vomiting. No bloody or coffee-ground emesis. No bile. No passage of melanotic stools. Timing/Duration: other - 3 to 4 weeks Severity: moderate Improving Factors: medication - Phenergan Worsening Factors: eating Associated Symptoms: malaise, nausea/vomiting Allergies/Adverse Reactions: Allergies Diphenhydramine [From Benadryl] Allergy (Verified 01/30/19 06:46) NSAIDs Allergy (Verified 01/20/19 15:02) Iodine Adverse Reaction (Verified 01/30/19 06:46) Metoclopramide [From Reglan] Adverse Reaction (Verified 01/20/19 15:02) Ondansetron Adverse Reaction (Verified 01/30/19 06:46) Home Medications: Ambulatory Orders Sumatriptan Succinate [Imitrex] 100 mg PO PRN PRN MDD 1 in 24hr 09/01/18 Zolpidem Tartrate [Ambien] 10 mg PO BEDTIME 12/05/18 Bisoprolol Fumarate 10/18/19 Buspirone HCl [Buspirone Hydrochloride] 5 mg PO 10/18/19 Divalproex Sodium [Depakote ER] 250 mg PO 10/18/19 Lisinopril 20 mg PO 10/18/19 Propranolol HCl 40 mg PO 10/18/19 Trazodone HCl [Trazodone Hydrochloride] 50 mg PO 10/18/19 Review of Systems - Review of Systems Constitutional: States: malaise EENTM: States: no symptoms reported Respiratory: States: no symptoms reported Cardiology: States: no symptoms reported Gastrointestinal/Abdominal: States: abdominal pain, nausea, vomiting Genitourinary: States: no symptoms reported Musculoskeletal: States: no symptoms reported Skin: States: no symptoms reported Neurological: States: no symptoms reported Endocrine: States: no symptoms reported All other Systems: No Change from Baseline Past Medical History (General) - Patient Medical History Hx Seizures: No Hx Stroke: No Hx Dementia: No Hx Asthma: No Hx of COPD: No Hx Cardiac Disorders: No Hx Congestive Heart Failure: No Hx Pacemaker: No Hx Hypertension: Yes Hx Thyroid Disease: No Hx Diabetes: No Hx Gastroesophageal Reflux: No - hx gastric ulcers Hx Renal Disease: No Hx Cancer: No Hx of HIV: No Hx Hepatitis C: No Hx MRSA: No - Vaccination History Hx Tetanus, Diphtheria Vaccination: No Hx Influenza Vaccination: No Hx Pneumococcal Vaccination: No Immunizations Up to Date: No - Social History Hx Tobacco Use: Yes Hx Chewing Tobacco Use: No Hx Alcohol Use: Yes - occ Hx Substance Use: No Hx Substance Use Treatment: No Hx Depression: Yes Hx Physical Abuse: No Hx Emotional Abuse: No Hx Suspected Abuse: No - Female History Patient is a Female of Child Bearing Age (10 -59 yrs old): No Patient : No Family Medical History - Family History Son Family History: No Known Hx Family Cancer: Yes - parents(mom-gastric;dad-unknownt type) Mother Living Status: Cause of : cancer Father Family History: Unknown Living Status: Cause of : cancer Physical Exam - Physical Exam General Appearance: Alert, Frail, Ill Appearing Eye Exam: bilateral normal Ears, Nose, Throat: hearing grossly normal, normal pharynx Neck: full range of motion, supple Respiratory: lungs clear, normal breath sounds, no respiratory distress, no accessory muscle use Cardiovascular/Chest: normal peripheral pulses, regular rate, rhythm, no edema Peripheral Pulses: radial,right: 2+, radial,left: 2+ Gastrointestinal/Abdominal: soft, other - Mild epigastric discomfort to palpation. 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 This is most likely a flare of her chronic gastritis issues. The patient is being placed on acid reducing medications along with nausea medications. She has been fairly well controlled here with a small dose of IV Phenergan and IV Stadol. She has received IV fluids for mild dehydration as well as electrolyte replacement in the form of potassium and magnesium. Admit for continued care. Anticipated 24 to 48-hour stay as long as patient improves. ruth wolfe [id number] - Results/Orders Results/Orders: Vital Signs - 24 hr 10/18/19 10/18/19 10/18/19 19:48 20:28 21:00 Temperature 98.6 F Pulse Rate [ 96 H 77 72 monitor] Respiratory 18 14 18 Rate Blood Pressure 107/88 107/88 126/89 [Left Arm] O2 Sat by Pulse 96 92 L 92 L Oximetry Laboratory Tests 10/18/19 10/18/19 20:14 20:14 WBC 4.1 L RBC 4.98 Hgb 15.6 Hct 46.0 MCV 92.4 MCH 31.4 H MCHC 33.9 RDW 13.9 Plt Count 161 MPV 8.1 Absolute Neuts (auto) 1.60 L Absolute Lymphs (auto) 1.80 Absolute Monos (auto) 0.50 Absolute Eos (auto) 0.10 Absolute Basos (auto) 0.00 Neutrophils % 38.3 L Lymphocytes % 45.0 Monocytes % 12.4 H Eosinophils % 3.6 Basophils % 0.7 Sodium 141 Potassium 3.1 L Chloride 108 Carbon Dioxide 23 Anion Gap 13.1 BUN 18 Creatinine 0.77 BUN/Creatinine Ratio 23.4 H Random Glucose 86 Serum Osmolality 282.5 Calcium 10.0 Magnesium 1.7 L Total Bilirubin 1.0 AST 26 ALT 14 Alkaline Phosphatase 74 Creatine Kinase 22 L CK-MB (CK-2) 6.6 H* CK-MB (CK-2) % Not Reportable Troponin I 0.03 B-Natriuretic Peptide 81.4 Serum Total Protein 7.5 Albumin 3.9 Globulin 3.6 H Albumin/Globulin Ratio 1.1 Amylase 131 H Lipase 28 Acute abdominal series appears benign. EKG shows normal sinus rhythm 86 bpm. Normal axis. Normal R wave progression. No ST segment or T wave changes indicative of acute ischemia. Normal QT interval. Departure - Departure Clinical Impression: Uncontrolled pain, Hypokalemia, Hypomagnesemia Gastritis Qualifiers: Gastritis type: unspecified gastritis Chronicity: chronic Gastritis bleeding: without bleeding Qualified Code(s): K29.50 - Unspecified chronic gastritis without bleeding Nausea & vomiting Qualifiers: Vomiting type: unspecified Vomiting Intractability: non-intractable Qualified Code(s): R11.2 - Nausea with vomiting, unspecified Disposition: Admit Patient Condition: Poor Departure Forms: ED Discharge - Pt. Copy, Patient Portal Self Enrollment Referrals: Aram Fitzpatrick MD [Primary Care Provider] - 1-2 Weeks Home Medications: Ambulatory Orders Sumatriptan Succinate [Imitrex] 100 mg PO PRN PRN MDD 1 in 24hr 09/01/18 Zolpidem Tartrate [Ambien] 10 mg PO BEDTIME 12/05/18 Bisoprolol Fumarate 10/18/19 Buspirone HCl [Buspirone Hydrochloride] 5 mg PO 10/18/19 Divalproex Sodium [Depakote ER] 250 mg PO 10/18/19 Lisinopril 20 mg PO 10/18/19 Propranolol HCl 40 mg PO 10/18/19 Trazodone HCl [Trazodone Hydrochloride] 50 mg PO 10/18/19 Decision To Admit - Decistion To Admit Decision to Admit Reason: Medical Nature Decision to Admit Date: 10/18/19 Decision to Admit Time: 22:00
[2019-10-18] MEDS ORDERED: ACETAMINOPHEN IV 1000MG 1,000 MG in PREMIX BOTTLE 1 BOTTLE IVPB ONE (23:08)
[2019-10-18] MEDS ORDERED: ACETAMINOPHEN 325 MG TAB PO PRN (23:10)
[2019-10-18] MEDS ORDERED: ALUM & MAG HYDROX-SIMETHICONE 30 ML UD PO PRN (23:10)
[2019-10-18] MEDS ORDERED: SODIUM CHLORIDE 0.9% (FLUSH) 10 ML SYG IV PRN (23:10)
[2019-10-18] MEDS ORDERED: MAGNESIUM HYDROXIDE 30 ML UD PO PRN (23:10)
[2019-10-18] MEDS ORDERED: PROMETHAZINE HCL INJ 25 MG/ML VIAL ONE (23:14)
[2019-10-18] MEDS ORDERED: ACETAMINOPHEN IV 1000MG 100 ML ONE (23:14)
[2019-10-18] MEDS ORDERED: SODIUM CHLORIDE 0.9% 50ML 50 ML ONE (23:22)
[2019-10-18] MEDS ORDERED: IV SET AND CAP CHANGE INJ INJ SCH (23:30)
[2019-10-18] MEDS ORDERED: risperiDONE 0.25 MG TAB ONE (23:33)
[2019-10-18] MEDS ORDERED: PROPRANOLOL HCL 20 MG TAB ONE (23:33)
[2019-10-18] MEDS ORDERED: KCL 20MEQ/D5 1/2NS 1,000 ML IVS PRN (23:51)
[2019-10-19] MEDS ORDERED: SUMAtriptan SUCCINATE 50 MG TAB PO PRN (04:33)
[2019-10-19] MEDS ORDERED: SUCRALFATE 1 GM/10 ML 1 GM UD ONE (05:44)
[2019-10-19] MEDS: SUCRALFATE 1 GM/10 ML 1 GM UD PO SCH ×2 (06:26→11:21)
[2019-10-19] MEDS ORDERED: PANTOPRAZOLE SODIUM IV 40 MG VIAL IV SCH (06:30)
--- NOTE | 2019-10-19 08:54 | CT ---
EXAM DESCRIPTION: Abdomen/Pelvis w/wo Contrast CLINICAL HISTORY: abd pain, chronic n/v COMPARISON: January 19, 2019 TECHNIQUE: Pre- and postcontrast CT images of the abdomen and pelvis are obtained. This exam was performed according to our departmental dose-optimization program, which includes automated exposure control, adjustment of the mA and/or kV according to patient size and/or use of iterative reconstruction technique . FINDINGS: Visualized lung bases again demonstrate interstitial thickening and rounded mildly spiculated pleural-based lesion in the right lower lobe measuring 13 mm likely representing round atelectasis given the lack of interval change. Interstitial thickening in the left lung base is also increased from previous exam. No focal hepatic lesion is seen. Gallbladder wall thickening measures maximum 6 mm with question of pericholecystic fluid. No focal calcified gallstones. Mild intra and extrahepatic bile duct dilatation. The distal common bile duct at the head of the pancreas measures 4 mm which is within normal limits. No pancreatic mass or pancreatic duct dilatation. Spleen and adrenal glands are unremarkable. Mild calcific atherosclerotic disease. 3 mm nonobstructing calcification lower pole right kidney. 2 mm nonobstructing calcification lower pole left kidney. Normal cortical enhancement. Fluid attenuation cortical cyst upper pole right kidney. No ureteral calcification or obstruction. Urinary bladder fills with contrast on delayed images and is unremarkable. Low-attenuation mass in the right fundus of the uterus measures 2.5 cm. Uterus is mildly deviated towards the right. Calcifications and fluid attenuation follicles of the right ovary are seen. Follicles measure up to 9 mm. Left ovary is atrophic. The appendix is small and unremarkable. Surgical clips around the distal esophagus are seen. Stomach is normally distended and unremarkable. No small bowel obstruction or bowel wall thickening. Increased volume of stool is seen in the colon from transverse to rectosigmoid region. The right colon is decompressed with circumferential wall thickening. No free intraperitoneal air. No pathologically enlarged abdominal or retroperitoneal lymphadenopathy. Osseous structures show no aggressive bony lesions. Osseous structures are osteopenic. IMPRESSION: Wall thickening of the right colon could be secondary to poor distention of the colon versus nonspecific infectious or inflammatory localized colitis. Gallbladder wall thickening and question of pericholecystic fluid is seen. Consider further evaluation with right upper quadrant ultrasound. Mild intrahepatic and extrahepatic biliary ductal dilatation is seen although the distal common bile duct is normal in size and no CT evidence of bile duct obstruction is seen. Other chronic findings as described above. No CT evidence of acute appendicitis. Mass in the uterine fundus likely represents uterine fibroid. Calcifications of the right ovary are again seen. Nonobstructing bilateral nephrolithiasis. 13 mm pleural-based nodule in the right lower lobe stable from previous likely representing round atelectasis. Probable atelectasis in the left lower lobe. Electronically signed by: Horacio Crowe MD 10/19/2019 8:53 AM CDT
[2019-10-19] MEDS ORDERED: LISINOPRIL 10 MG TAB PO SCH (09:00)
[2019-10-19] MEDS ORDERED: traMADol HCL 50 MG TAB PO PRN (10:25)
--- NOTE | 2019-10-19 10:32 | US ---
EXAM DESCRIPTION: Gall Bladder: ULTRASOUND. CLINICAL HISTORY: abd pain COMPARISON: CT scan abdomen this visit. TECHNIQUE: Transabdominal scanning: Mandujano-scale and Doppler modes. FINDINGS: Gallbladder: Echogenic stones ranging from 2.3 mm to 6.5 mm with acoustic shadowing. No fluid around the gallbladder. Wall thickening 4.1 mm. Tender with transducer pressure. Common bile duct: caliber 3.9 mm within normal limits. Liver: normal echogenicity; contour liver capsule smooth where seen. No fluid around the liver. Intrahepatic biliary ducts normal caliber. Doppler hepatopedal flow portal vein.. Long axis right lobe 14.5 cm. Pancreas: normal size Normal echogenicity. Duct not seen. Aorta: 1.7 cm proximal normal caliber. Right kidney: long axis is 9.9 cm. Cortical thickness 10 mm. Echogenic but less than the liver. 2.4 mm echogenic stone agrees with CT abdomen findings. No definite acoustic shadowing. Hydronephrosis or perirenal fluid.. IMPRESSION: 1. Cholelithiasis and cholecystitis. No fluid around the gallbladder. Tender with transducer pressure. Normal caliber common bile duct. No ascites. 2. Liver and pancreas unremarkable. Normal caliber of the proximal aorta and IVC. 3. Minimal cortical thinning and increased echogenicity of the kidney, which could represent chronic disease or aging. 2.4 mm nonobstructing stone. Electronically signed by: Roderick Biggs MD 10/19/2019 10:30 AM CDT
[2019-10-19 12:41] VITALS: BP 154/102; TEMP 98.7; O2SAT 95
[2019-10-19] MEDS ORDERED: ALPRAZolam 0.25 MG TAB PO ONE (13:15)
[2019-10-19] MEDS ORDERED: PROPRANOLOL HCL 20 MG TAB PO SCH (21:00)
[2019-10-19] MEDS ORDERED: risperiDONE 0.25 MG TAB PO SCH (21:00)
--- NOTE | 2019-10-22 08:06 | SSS ---
SUPERVISING PHYSICIAN: Javad Mcnair MD DISCHARGE DIAGNOSIS: 1. Cholelithiasis and cholecystitis. 2. Abdominal pain with a history of gastritis. 3. Nausea, vomiting and dehydration secondary to #1 and #2. 4. History of prescription medication abuse. 5. 1.3 cm pulmonary nodule that needs close followup. 6. Gastroesophageal reflux disease. 7. History of migraines. 8. Anxiety. 9. Hypertension. HISTORY OF PRESENT ILLNESS: This is a 64-year-old female who came to the Emergency Room secondary to epigastric and right upper quadrant abdominal pain with nausea and vomiting that had been going on for 3 to 4 weeks. There was a long history of abdominal pain with nausea and vomiting. She does have a history of gastritis and she had actually been seen in the Emergency Room several days prior to coming to the ER on this date. She was given IV fluids as well as Phenergan, but she refused a blood draw or further workup. After discharge, she continued to have epigastric abdominal pain with recurrent nausea and vomiting. There were no complaints of bloody emesis, no bile and no notable blood in her stools or dark stools. In the Emergency Room, her vital signs showed temperature 98.6, heart rate 96, blood pressure 107/88, respiratory rate 18, O2 saturation 94%. Lab studies were done. Her WBCs were 4,100, hemoglobin 15.6, hematocrit 46. Sodium 141, potassium 3.1, chloride 108, carbon dioxide 23, magnesium 1.7. She was given magnesium supplementation. CK-MB was 6.6, creatinine kinase 22, troponin 0.03, amylase 131, lipase 28. Urinalysis was unremarkable. She had an abdominal x-ray done that showed no acute findings of the chest, abdomen or pelvis. She had an EKG done that showed normal sinus rhythm. Her abdominopelvic CT showed wall thickening of the right colon that could be secondary to poor distention of the colon versus nonspecific infectious or inflammatory localized colitis, gallbladder wall thickening and questionable pericholecystic fluid seen. Consider right upper quadrant ultrasound. Mild hepatic and extrahepatic biliary duct dilatation is seen although the distal common bile duct is normal in size with no CT evidence of bile duct obstruction, no CT evidence of acute appendicitis. Mass in the uterine fundus likely representing uterine fibroid. Calcifications of the right ovary are again seen with nonobstructing bilateral nephrolithiasis and 13 mm pleural-based nodule in the right lower lobe stable from previous, likely representing round atelectasis, probable atelectasis in the left lower lobe. The patient was placed in observation for IV fluids and further workup by sonogram as well as to control symptoms. She was in stable condition. PAST MEDICAL HISTORY: 1. Hypertension. 2. Chronic abdominal pain with gastritis. 3. Gastroesophageal reflux disease. 4. Anxiety. 5. Migraine headaches. 6. Prescription medication abuse. PAST SURGICAL HISTORY: None. HOME MEDICATIONS: 1. Omeprazole. 2. Imitrex. 3. Zolpidem. 4. Bisoprolol. 5. Buspirone. 6. Depakote. 7. Lisinopril. 8. Propranolol. 9. Risperidone. 10. Trazodone. ALLERGIES: DIPHENHYDRAMINE, NSAIDS, IODINE, REGLAN, ZOFRAN. SOCIAL HISTORY: She lives in [place]. She goes to [facility]. She has a past history of tobacco use, but quit years ago. There is no history of ETOH or illicit drug use. REVIEW OF SYSTEMS: GENERAL: Negative for fever, fatigue or weight changes. HEENT: Negative for sinus symptoms, ear pain, vision changes or sore throat. RESPIRATORY: Negative for wheezing, coughing or shortness of breath. CARDIAC: Negative for chest pain, palpitations or tachycardia. GASTROINTESTINAL: As per history of present illness. GENITOURINARY: Negative for hematuria, dysuria or polyuria. MUSCULOSKELETAL: Negative for arthralgias, myalgias. SKIN: Negative for lesions or rashes. NEUROLOGIC: Positive for migraine headaches. Negative for seizures or dizziness. PHYSICAL EXAMINATION: VITAL SIGNS: Temperature 98.7, heart rate 72, blood pressure 164/102, respiratory rate 18, O2 saturation 95% on room air. GENERAL: This is a 64-year-old female patient lying in her hospital bed. She has a very flat affect. She is in no acute distress. Her is at the bedside. HEENT: Normocephalic, atraumatic. Pupils are equal and reactive. Oropharynx is clear. NECK: Supple without mass. RESPIRATORY: Essentially clear to auscultation bilaterally. CARDIOVASCULAR: Regular rate and rhythm. GASTROINTESTINAL: Abdomen is soft, nondistended. She has some mild to moderate right upper quadrant abdominal pain. It is tender to palpation. She has no guarding and there is no rebound tenderness. EXTREMITIES: No cyanosis, clubbing or edema. NEUROLOGIC: Awake, alert and oriented times three. Cranial nerves II-XII are grossly intact as tested. LABORATORY: Followup labs shows sodium 141, potassium 3.4, chloride 113. Amylase 96, lipase 23. Gallbladder ultrasound shows 1) Cholelithiasis and cholecystitis. No fluid around the gallbladder. Tender with transducer pressure. Normal caliber common bile duct. No ascites. 2) Liver and pancreas unremarkable with normal caliber of the proximal aorta and IVC. 3) Minimal cortical thinning and increased echogenicity of the kidney which could represent disease or aging. 2.4 mm nonobstructing stone. All other labs and films are as per history of present illness. HOSPITAL COURSE: The patient's nausea and vomiting subsided. Her home medications were restarted. She started on a clear liquid diet and was advanced to a bland diet without problems. I called Dr. Burger in consult and he felt that she would need to see him as an outpatient as her gallbladder does need to be removed. She has a followup appointment with him on 10/22/19 at 11:20 AM. She is to also make an an appointment with Dr. Fitzpatrick the week after discharge for hospital followup. She is to continue her previous medications and I have no additional medications to prescribe. She is to continue with a bland diet and advance it as tolerated. She is to return to the hospital or followup with Dr. Fitzpatrick or Dr. Burger for any problems or complications. DISCHARGE MEDICATIONS: 1. Imitrex. 2. Ambien. 3. Trazodone. 4. Propranolol. 5. Lisinopril. 6. Depakote. 7. Buspirone. 8. Bisoprolol. 9. Risperidone. 10. Omeprazole. #[id number] [facility]
== END 2019-10-19 13:45 | disposition home or self-care (01) ==
LOC: ER 19:28 → MS 22:19
PROVIDERS: ADMIT Nurse Practitioner Family; ATTEND Nurse Practitioner Acute Care
DX: K80.10 Calculus of gallbladder with chronic cholecystitis without obstruction (principal); E86.0 Dehydration; E83.42 Hypomagnesemia; E87.6 Hypokalemia; R91.1 Solitary pulmonary nodule; G43.909 Migraine, unspecified, not intractable, without status migrainosus; F41.9 Anxiety disorder, unspecified; I10 Essential (primary) hypertension; G89.29 Other chronic pain; K21.9 Gastro-esophageal reflux disease without esophagitis; N20.0 Calculus of kidney; Z87.19 Personal history of other diseases of the digestive system; Z79.899 Other long term (current) drug therapy; Z88.8 Allergy status to other drugs, medicaments and biological substances; Z87.891 Personal history of nicotine dependence
CPT/HCPCS: 96366 ×2; 96367; 96365; 96375; 96376; J2550 ×2; J7030; A4216 ×2; J3475; J0595; J3480; J7050; 80048; 82553; 80053; 36415 ×2; 82150 ×2; 81001; 85025; 82550; 83690 ×2; 83735 ×2; 84484; 83880; 74019; 74178; 76705; 94760 ×2; 99285; 93005

== ENCOUNTER 2019-10-24 00:29 | Emergency (ER) | payer OTHER, SELFPAY ==
[2019-10-24 00:47] VITALS: TEMP 97.3; O2SAT 96
[2019-10-24 01:02] VITALS: BP 135/92
--- NOTE | 2019-10-24 01:03 | ED.PDOC ---
History of Present Illness - General Chief Complaint: Abdominal Pain Stated Complaint: possible gallstones Time Seen by Provider: 10/24/19 00:49 Information Source: patient, family Exam Limitations: no limitations - History of Present Illness Initial Comments: PT AND STATE SHE WAS DX'D WITH GALLSTONES AND HAS APPT WITH DR. REYES FOR LAP CHOLECYSTECTOMY. SHE IS HERE FOR PAIN AND NAUSEA CONTRAOL, UNCONTROLLED BY PILLS. PT BEEN HERE TWICE PAST COUPLE WEEKS, SO IT'S DIFFICULT IF THIS IS LEGITIMATE OR REALLY HAS APPT WIT DR REYES. IF DURING DAYTIME, I WOULD VERIFY WITH HIS OFFICE. Abdominal Pain Onset Location: RUQ Pain Radiation: epigastric, periumbilical Quality: sharpness, stabbing Timing/Duration: intermittent Improving Factors: nothing Worsening Factors: eating Associated Symptoms: nausea/vomiting Review of Systems - Review of Systems Constitutional: Denies: chills, fever EENTM: States: no symptoms reported Respiratory: States: no symptoms reported Cardiology: States: no symptoms reported Gastrointestinal/Abdominal: States: abdominal pain, nausea. Denies: vomiting Genitourinary: Denies: dysuria, frequency Musculoskeletal: Denies: back pain, neck pain Skin: States: no symptoms reported Neurological: States: no symptoms reported Endocrine: States: no symptoms reported Hematologic/Lymphatic: States: no symptoms reported All other Systems: Reviewed and Negative Past Medical History (General) - Patient Medical History Hx Seizures: Yes Hx Stroke: No Hx Dementia: No Hx Asthma: No Hx of COPD: No Hx Cardiac Disorders: No Hx Congestive Heart Failure: No Hx Pacemaker: No Hx Hypertension: Yes Hx Thyroid Disease: No Hx Diabetes: No Hx Gastroesophageal Reflux: No - hx gastric ulcers Hx Renal Disease: No Hx Cancer: No Hx of HIV: No Hx Hepatitis C: No Hx MRSA: No - Vaccination History Hx Tetanus, Diphtheria Vaccination: No Hx Influenza Vaccination: No Hx Pneumococcal Vaccination: No - Social History Hx Tobacco Use: Yes Hx Chewing Tobacco Use: No Hx Alcohol Use: No Hx Substance Use: No Hx Substance Use Treatment: No Hx Depression: Yes Hx Physical Abuse: No Hx Emotional Abuse: No Hx Suspected Abuse: No - Female History Patient : No Family Medical History - Family History Son Family History: No Known Hx Family Cancer: Yes - parents(mom-gastric;dad-unknownt type) Mother Living Status: Cause of : cancer Father Family History: Unknown Living Status: Cause of : cancer Physical Exam - Physical Exam General Appearance: Alert, Unkempt Eyes, Ears, Nose, Throat Exam: PERRL/EOMI, normal ENT inspection Neck: non-tender, full range of motion Respiratory: chest non-tender, lungs clear Cardiovascular/Chest: normal peripheral pulses, regular rate, rhythm Peripheral Pulses: No deficit Gastrointestinal/Abdominal: normal bowel sounds, soft, no organomegaly, no pulsatile mass, tenderness - RUQ, PERIUMBILICAL Back Exam: normal inspection, no CVA tenderness, no vertebral tenderness Extremity: normal range of motion, normal inspection 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 THEY DO NOT WANT ANY PILL RX, THEY DO NOT WORK. 10/24/19 01:12 SINCE DX OF CHOLECYSTITIS/CHOLELITHISIS HAVE ALREADY BEEN ESTABLISHED BY DR. REYES, IT IS NOT APPROPRIATE TO REPEAT LABS TODAY. THUS I WILL JUST TX THE PAIN AND NAUSEA ACUTELY AND DC TO HOME WITH PLANNED F/U. Departure - Departure Clinical Impression: Symptomatic cholelithiasis, Nausea Disposition: Discharge to Home or Self Care Condition: Good Departure Forms: ED Discharge - Pt. Copy, Patient Portal Self Enrollment Instructions: Gallstones (DC) Diet: low fat, low cholesterol Activity: increase activity as tolerated Referrals: Aram Fitzpatrick MD [Primary Care Provider] - 1-2 Weeks Home Medications: Ambulatory Orders Sumatriptan Succinate [Imitrex] 100 mg PO PRN PRN MDD 1 in 24hr 09/01/18 Zolpidem Tartrate [Ambien] 10 mg PO BEDTIME PRN 12/05/18 Bisoprolol Fumarate 5 mg PO BEDTIME 10/18/19 Buspirone HCl [Buspirone Hydrochloride] 5 mg PO BEDTIME 10/18/19 Divalproex Sodium [Depakote ER] 750 mg PO BEDTIME 10/18/19 Lisinopril 20 mg PO DAILY 10/18/19 Omeprazole [Prilosec Cap] 20 mg PO BEDTIME 10/18/19 Propranolol HCl 40 mg PO BEDTIME 10/18/19 Trazodone HCl [Trazodone Hydrochloride] 50 mg PO BEDTIME 10/18/19 risperiDONE [Risperdal] 0.25 mg PO BEDTIME 10/18/19 Additional Instructions: Please keep the appointment with Dr. Reyes, gen surgery, to have your gallbladder removed, as already planned.
[2019-10-24] MEDS ORDERED: HYDROmorphone HCL INJ 2 MG/ML VIAL IV ONE (01:06)
[2019-10-24] MEDS ORDERED: PROMETHAZINE HCL INJ 12.5 MG in SODIUM CHLORIDE 0.9% 50ML 50 ML IVPB ONE (01:07)
== END 2019-10-24 01:38 | disposition home or self-care (01) ==
LOC: ER 00:29
DX: K80.20 Calculus of gallbladder without cholecystitis without obstruction (principal); I10 Essential (primary) hypertension; R11.0 Nausea; F17.200 Nicotine dependence, unspecified, uncomplicated
CPT/HCPCS: A4216; J1170; J2550

== ENCOUNTER 2019-10-26 22:02 | Inpatient (IN) | payer SELFPAY, OTHER ==
[2019-10-26] MEDS ORDERED: SODIUM CHLORIDE 0.9% (FLUSH) 10 ML SYG IV PRN (22:12)
[2019-10-26] MEDS ORDERED: MORPHINE SULFATE INJ 10 MG/ML VIAL IV ONE (22:12)
[2019-10-26] MEDS ORDERED: PROMETHAZINE HCL INJ 12.5 MG in SODIUM CHLORIDE 0.9% 50ML 50 ML IVPB ONE (22:12)
--- NOTE | 2019-10-26 22:51 | ED.PDOC ---
History of Present Illness - General Chief Complaint: Abdominal Pain Stated Complaint: right upper quad pain, nausea Time Seen by Provider: 10/26/19 22:04 Information Source: patient, RN notes reviewed, Vital Signs reviewed, family, old records Exam Limitations: no limitations - History of Present Illness Initial Comments: This is a 64-year-old female with history of chronic pain, recent admission for right upper quadrant abdominal pain, presenting for right upper quadrant pain that began again tonight. She states pain began tonight after she had dinner, consisting of a turkey sandwich with mayonnaise and cheese. This is her third ER visit in the last week for right upper quadrant pain. She states this is typical of her gallbladder pain that was diagnosed earlier this week. She was admitted last week for abdominal pain and vomiting, CT of the abdomen/pelvis showed gallbladder wall thickening on CT and questionable pericholecystic fluid on CT at that time, ultrasound showed wall thickening concerning for cholecystitis. She was seen by Dr. Burger in the hospital last week who recommended conservative management with plan for outpatient cholecystectomy later this week. She states the pain is not controlled with oral medications and she has had multiple episodes of vomiting. She denies any fever. Review of Systems - Review of Systems Constitutional: Denies: chills, fever EENTM: Denies: nose congestion, throat pain, mouth pain Respiratory: Denies: cough, orthopnea, short of breath, stridor, wheezing Cardiology: Denies: chest pain, edema Gastrointestinal/Abdominal: States: abdominal pain, nausea, vomiting. Denies: constipation, diarrhea Genitourinary: Denies: dysuria, hematuria Musculoskeletal: Denies: joint pain, muscle stiffness, neck pain Skin: Denies: lesions, rash Neurological: Denies: headache, paresthesia, tingling Endocrine: States: no symptoms reported Hematologic/Lymphatic: States: no symptoms reported Past Medical History (General) - Patient Medical History Hx Seizures: Yes Hx Stroke: No Hx Dementia: No Hx Asthma: No Hx of COPD: No Hx Cardiac Disorders: No Hx Congestive Heart Failure: No Hx Pacemaker: No Hx Hypertension: Yes Hx Thyroid Disease: No Hx Diabetes: No Hx Gastroesophageal Reflux: Yes - hx gastric ulcers Hx Renal Disease: No Hx Cancer: No Hx of HIV: No Hx Hepatitis C: No Hx MRSA: No Surgical History: other - Vaccination History Hx Tetanus, Diphtheria Vaccination: No Hx Influenza Vaccination: No Hx Pneumococcal Vaccination: No Immunizations Up to Date: No - Social History Hx Tobacco Use: Yes Hx Chewing Tobacco Use: No Hx Alcohol Use: No Hx Substance Use: No Hx Substance Use Treatment: No Hx Depression: Yes Feels Threatened In Home Enviroment: No Feels Threatened In a Relationship: No Hx Physical Abuse: No Hx Emotional Abuse: No Hx Suspected Abuse: No - Activities of Daily Living Hospice Agency (if applicable):: None - Female History Patient is a Female of Child Bearing Age (10 -59 yrs old): No Patient : No Family Medical History - Family History Son Family History: No Known Hx Family Cancer: Yes - parents(mom-gastric;dad-unknownt type) Mother Living Status: Cause of : cancer Father Family History: Unknown Living Status: Cause of : cancer Physical Exam - Physical Exam General Appearance: Alert, Other - Appears uncomfortable Eyes, Ears, Nose, Throat Exam: PERRL/EOMI, normal ENT inspection, pharynx normal Neck: full range of motion, supple, normal inspection Respiratory: lungs clear, normal breath sounds, no respiratory distress, no accessory muscle use Cardiovascular/Chest: normal peripheral pulses, regular rate, rhythm, no edema, no gallop, no JVD Peripheral Pulses: No deficit Gastrointestinal/Abdominal: normal bowel sounds, soft, tenderness, other - Right upper quadrant tenderness with positive Cline sign Back Exam: normal inspection, no CVA tenderness, no vertebral tenderness Extremity: normal range of motion, non-tender, normal inspection Neurologic: no motor/sensory deficits, alert, normal mood/affect, oriented x 3 Skin Exam: normal color, warm/dry Progress - Progress Progress: 10/26/19 22:[address] on 10/19/2019 showed wall thickening of the right colon possibly due to infectious versus inflammatory colitis, gallbladder wall thickened with possible pericholecystic fluid. This was further evaluated with a gallbladder ultrasound showing gallbladder wall thickening, no pericholecystic fluid on ultrasound, multiple gallstones. She was scheduled to see Dr. Burger in the office in 2 days to discuss outpatient elective cholecystectomy. 10/27/19 00:29 Recheck. When I went in the room, patient states she is feeling better. I explained labs essentially unchanged, awaiting CT report. Patient then states that she wants more pain medicine, additional morphine ordered 10/27/19 00:[address] Garsia, general surgery. Reviewed labs, recent imaging findings, CT findings tonight, vital signs. Request admission to hospitalist, will assess in morning.Request clear liquids, pain control. He does not want IV antibiotics at this time. 10/27/19 00:43 Discussed with Shayne Alvarez, hospitalist. Will obs 10/27/19 00:55 Rechecked. Discussed lab, CT findings and plan for admission. Patient and agree with plan. All questions answered. DDX: Cholecystitis, pancreatitis, choledocholithiasis, SBO, colitis MDM:, Patient returns tonight, third ER visit in the last 2 weeks for right upper quadrant pain. She was admitted 10/17, CT and ultrasound at that time suggestive of acute cholecystitis. Patient was managed nonoperatively and was discharged home with plan for outpatient follow-up with surgery for elective cholecystectomy. She was here 10/23 with worsening pain, and is again here tonight with worsening pain after eating dinner. Repeat CT tonight suggestive of acute cholecystitis. Labs, though, are reassuring. No leukocytosis, no LFT elevation, lipase normal. Will place in observation for pain control and surgery evaluation in a.m., Concern for acute versus acute on chronic cholecystitis Stuart Garcia DO [facility] #[id number] - Results/Orders Results/Orders: EKG reviewed by me at [id number]. Normal sinus rhythm, rate of 86, normal axis, normal intervals, no ST segment elevations or depressions 10/26/19 22:12 IV Care:Saline Lock per Protoc QSHIFT Sodium Chloride 0.9% (Flush) [Saline Flush Syringe] 10 ml IV PRN PRN Gall Bladder [US] Stat 10/26/19 22:15 EKG STAT 10/26/19 22:21 Hold Metformin x 48Hrs [id number] 10/27/19 00:42 ED Intent to Admit Routine Laboratory Results - last 24 hr 10/26/19 10/26/19 10/26/19 00:35 23:00 23:00 WBC 4.1 L RBC 4.22 Hgb 13.2 Hct 40.2 MCV 95.3 MCH 31.2 H MCHC 32.8 L RDW 15.0 H Plt Count 140 MPV 8.2 Absolute Neuts (auto) 1.60 L Absolute Lymphs (auto) 1.50 Absolute Monos (auto) 0.60 Absolute Eos (auto) 0.30 Absolute Basos (auto) 0.00 Neutrophils % 39.7 L Lymphocytes % 37.6 Monocytes % 15.4 H Eosinophils % 6.8 H Basophils % 0.5 Sodium 139 Potassium 5.4 H Chloride 105 Carbon Dioxide 26 Anion Gap 13.4 BUN 17 Creatinine 0.83 BUN/Creatinine Ratio 20.5 H Random Glucose 83 Serum Osmolality 278.2 Calcium 9.3 Total Bilirubin 0.3 Direct Bilirubin 0.1 Indirect Bilirubin 0.2 AST 17 ALT 12 Alkaline Phosphatase 70 Serum Total Protein 7.3 Albumin 3.8 Lipase 27 Urine Color Yellow Urine Appearance Clear Urine pH 5.5 Ur Specific Bock 1.015 Urine Protein Negative Urine Glucose (UA) Negative Urine Ketones Negative Urine Blood Negative Urine Nitrite Negative Urine Bilirubin Negative Urine Urobilinogen 0.2 Ur Leukocyte Esterase Negative Urine RBC 0 Urine WBC 0-1 Ur Epithelial Cells 1-3 Urine Bacteria 0 EXAM DESCRIPTION: Abdomen/Pelvis w/Contrast CLINICAL HISTORY: 64 years Female RUQ pain, gallstones COMPARISON: CT scan of the abdomen and pelvis dated October 19, 2019. TECHNIQUE: Images were obtained in axial, sagittal, and coronal planes. Intravenous contrast was administered. This exam was performed according to our departmental dose-optimization program which includes use of Automated Exposure Control, adjustment of the mA and/or kV according to patient size and/or use of iterative reconstruction technique. FINDINGS: Mildly contracted gallbladder with gallbladder wall thickening and edema again seen. The gallbladder wall measures 4 mm. Possible fluid adjacent to gallbladder. Marked gastric distention with retained food and debris as well as fluid noted. Suspected intrahepatic biliary dilatation. Common hepatic duct is dilated measuring 1.5 cm. Distal common bile duct does not appear dilated. Unremarkable pancreas, spleen, and adrenal glands bilaterally. Small hiatal hernia. Surgical clips epigastric region. No obstructing renal calcifications bilaterally. No hydronephrosis bilaterally. Unremarkable bladder. Right renal cyst. Appendix within normal limits. Moderate constipation. No bowel obstruction, perforation, or inflammation. Calcification abdominal aorta with no dilatation seen. Unremarkable portal vein. No adenopathy or abnormal fluid collections seen. Airspace attenuation lower lobes bilaterally consistent with infiltrate and atelectatic change. Parenchymal stranding identified. The findings are decreased when correlated with the prior study. More remote fra ctures posterior right ribs. No acute osseous abnormality. IMPRESSION: Mildly contracted gallbladder with gallbladder wall thickening and edema. The findings are again suspicious for acute cholecystitis. Possible adjacent fluid. Dilated common hepatic duct with intrahepatic biliary dilatation. Correlation with MRCP suggested to further exclude stricture or choledocholithiasis distal common bile duct. Marked gastric distention with retained fluid as well as food and debris. Electronically signed by: Marily Coleman MD 10/27/2019 12:24 AM CDT - [id number] Departure - Departure Clinical Impression: Acute abdominal pain in right upper quadrant, Acute cholecystitis due to biliary calculus Time of Disposition: 00:45 Disposition: Admit Patient Condition: Fair Departure Forms: ED Discharge - Pt. Copy, Patient Portal Self Enrollment Instructions: DI for Abdominal Pain-Adult Referrals: Aram Fitzpatrick MD [Primary Care Provider] - 1-2 Weeks Home Medications: Ambulatory Orders Sumatriptan Succinate [Imitrex] 100 mg PO PRN PRN MDD 1 in 24hr 09/01/18 Zolpidem Tartrate [Ambien] 10 mg PO BEDTIME PRN 12/05/18 Bisoprolol Fumarate 5 mg PO BEDTIME 10/18/19 Buspirone HCl [Buspirone Hydrochloride] 5 mg PO BEDTIME 10/18/19 Divalproex Sodium [Depakote ER] 750 mg PO BEDTIME 10/18/19 Lisinopril 20 mg PO DAILY 10/18/19 Omeprazole [Prilosec Cap] 20 mg PO BEDTIME 10/18/19 Propranolol HCl 40 mg PO BEDTIME 10/18/19 Trazodone HCl [Trazodone Hydrochloride] 50 mg PO BEDTIME 10/18/19 risperiDONE [Risperdal] 0.25 mg PO BEDTIME 10/18/19
[2019-10-27] MEDS ORDERED: MORPHINE SULFATE INJ 10 MG/ML VIAL IV ONE (00:22)
--- NOTE | 2019-10-27 00:26 | CT ---
EXAM DESCRIPTION: Abdomen/Pelvis w/Contrast CLINICAL HISTORY: 64 years Female RUQ pain, gallstones COMPARISON: CT scan of the abdomen and pelvis dated October 19, 2019. TECHNIQUE: Images were obtained in axial, sagittal, and coronal planes. Intravenous contrast was administered. This exam was performed according to our departmental dose-optimization program which includes use of Automated Exposure Control, adjustment of the mA and/or kV according to patient size and/or use of iterative reconstruction technique. FINDINGS: Mildly contracted gallbladder with gallbladder wall thickening and edema again seen. The gallbladder wall measures 4 mm. Possible fluid adjacent to gallbladder. Marked gastric distention with retained food and debris as well as fluid noted. Suspected intrahepatic biliary dilatation. Common hepatic duct is dilated measuring 1.5 cm. Distal common bile duct does not appear dilated. Unremarkable pancreas, spleen, and adrenal glands bilaterally. Small hiatal hernia. Surgical clips epigastric region. No obstructing renal calcifications bilaterally. No hydronephrosis bilaterally. Unremarkable bladder. Right renal cyst. Appendix within normal limits. Moderate constipation. No bowel obstruction, perforation, or inflammation. Calcification abdominal aorta with no dilatation seen. Unremarkable portal vein. No adenopathy or abnormal fluid collections seen. Airspace attenuation lower lobes bilaterally consistent with infiltrate and atelectatic change. Parenchymal stranding identified. The findings are decreased when correlated with the prior study. More remote fractures posterior right ribs. No acute osseous abnormality. IMPRESSION: Mildly contracted gallbladder with gallbladder wall thickening and edema. The findings are again suspicious for acute cholecystitis. Possible adjacent fluid. Dilated common hepatic duct with intrahepatic biliary dilatation. Correlation with MRCP suggested to further exclude stricture or choledocholithiasis distal common bile duct. Marked gastric distention with retained fluid as well as food and debris. Electronically signed by: Marily Coleman MD 10/27/2019 12:24 AM CDT
--- NOTE | 2019-10-27 01:02 | HP ---
SUPERVISING PHYSICIAN: Jonas Ocampo MD CHIEF COMPLAINT: Right upper quadrant pain with nausea. HISTORY OF PRESENT ILLNESS: Ms. Estrada is a 64 year-old female patient who has a history of chronic pain and was recently admitted at [facility] for right upper quadrant abdominal pain. She presented to the Emergency Department last night with similar symptoms, endorsing that she was having right upper quadrant pain once again. She said it began shortly after dinner which consisted of a turkey sandwich, mayonnaise and cheese. It should be noted this is the third Emergency Room visit within the last week for right upper quadrant pain. She endorses that this has been gallbladder pain that was diagnosed this past week. CT of the abdomen showed wall thickening with concerns for cholecystitis. At that point, she was discharged from the hospital and seen by Dr. Burger who recommended conservative management be done and she could be seen as an outpatient for a cholecystectomy later in the week. She endorses that her pain has not been controlled on oral medication and she continues to have multiple episodes with nausea and vomiting. She denies any fever, chills, chest pain or shortness of breath. Laboratory studies at this time showed a white count of 4,100 without a left shift. Chemistries showed a mildly elevated potassium of 5.4, otherwise liver functions and all electrolytes were within normal limits. Urinalysis was within normal limits. Imaging studies in the Emergency Room last night consistent of an abdominal/pelvic CT with contrast and again, was noted a mildly contracted gallbladder with some gallbladder wall thickening and edema. Given her symptomatology and multiple trips to the Emergency Room in the last week and failure to control her pain, she is going to be placed in observation with consultation by Dr. Garsia who is ergonomist this weekend, for reevaluation of possibly surgery or outpatient management. She was placed in observation in stable condition. PAST MEDICAL HISTORY: 1. Hypertension. 2. Chronic migraines. 3. Prescription medication abuse. 4. Anxiety. 5. Gastroesophageal reflux disease. 6. Recent diagnosis of cholelithiasis. PAST SURGICAL HISTORY: None listed. CURRENT MEDICATIONS: 1. Risperidone. 2. Trazodone. 3. Imitrex. 4. Propranolol. 5. Lisinopril. 6. Depakote. 7. Buspirone. 8. Bisoprolol. ALLERGIES: BENADRYL, NSAIDS, IODINE, REGLAN, ZOFRAN. FAMILY HISTORY: Noncontributory. SOCIAL HISTORY: The patient lives in [place]. She is . She is a patient at [facility]. She has a past history of tobacco use, but quit many years previous. She denies any alcohol or illicit drug use. REVIEW OF SYSTEMS: CONSTITUTIONAL: Negative for fevers, chills, fatigue, no unintentional weight loss. HEENT: Negative for sinus pain, earache, sore throat, nasal congestion, positive for headaches with a chronic migraine. CHEST: Denies wheezing, coughing, shortness of breath. . HEART: Denies chest pain, palpitations, or syncopal episodes or tachycardia. ABDOMEN: As noted in history of present illness. GENITOURINARY: Denies dysuria, hematuria or polyuria. MUSCULOSKELETAL: Denies arthralgias, myalgias. . SKIN: Negative for lesions, rashes, moles or unexplained changes. NEUROLOGIC: Positive for migraine headaches which she is on multiple medications for. Denies ataxia, seizures, dizziness, syncopal episodes or other focal deficits. HEMATOLOGICAL: Denies unexplained bleeding, easy bruising or transfusion reactions. PHYSICAL EXAMINATION: VITAL SIGNS: Temperature 97.6, pulse 72, blood pressure 118/95, respirations 16, oxygen saturation 92% on room air. GENERAL: Patient is resting comfortably. She does not appear to be in any acute distress at tome of my exam. She is alert. HEENT: Tympanic membranes are clear bilaterally. Oropharynx is pink and moist without lesions. NECK: Supple, non-tender, full range of motion. No jugular venous distention noted. CHEST: Lung sounds clear to auscultation bilaterally without rhonchi, rales, or wheezes. CARDIOVASCULAR: Regular rate and rhythm without appreciable murmurs, rubs, or gallops. ABDOMEN: Soft, nondistended. She does have some tenderness to palpation to the right upper quadrant. No guarding, no rebound tenderness, no peritoneal signs. EXTREMITIES: No cyanosis, clubbing, or edema. NEUROLOGIC: She is alert and oriented x3. Cranial nerves II-XII are grossly intact. LABORATORY: CBC showed a white count of 4,100, hemoglobin 13.2, hematocrit 40.2. Platelet count 140,000, differential showed to be without a left shift. Chemistries showed a mildly potassium at 4.4. All other electrolytes are within normal limits. Creatinine 0.82. Liver functions within normal limits. Lipase normal at 27. Urinalysis within normal limits. She had a valproic acid less than 10. RADIOLOGY: CT of the abdomen and pelvis with contrast and per radiology interpretation, findings consistent with a mildly contracted gallbladder with gallbladder wall thickening and edema suspicious for acute cholecystitis. There was note of dilated common hepatic duct and intrahepatic biliary dilation. ASSESSMENT: 1. Cholelithiasis with probable biliary colic, can't completely rule out acute cholecystitis. Surgical consultation requested. 2. Chronic migraines on multiple medications. 3. Poorly controlled hypertension. 4. History of prescription medication abuse. 5. Gastroesophageal reflux disease. 6. Anxiety. PLAN: The patient is placed in observation for a surgical consultation. Dr. Garsia has seen the patient and the plan at this point is to put her on clear liquids tonight, keep her n.p.o. overnight, control her pain and give her IV fluids. If she does have good control of her pain and can go on oral medication, the plan would be to do outpatient laparoscopic cholecystectomy, however, will readdress in the morning. She will be given Dilaudid for pain control along with Phenergan, resume her home medications. I anticipate her length of stay to be 1 to 2 days. Until we can transition her to outpatient management, we will continue to monitor and treat as needed. [id number] [facility]
[2019-10-27] MEDS ORDERED: PROPOFOL 200 MG/20 ML VIAL IV ONE (01:03)
[2019-10-27] MEDS ORDERED: LIDOCAINE 1% 10 ML VIAL INJ ONE (01:03)
[2019-10-27] MEDS ORDERED: ePHEDrine SULF 50 MG/ML IV ONE (01:03)
[2019-10-27] MEDS ORDERED: MAGNESIUM SULFATE INJ 1 GM/2 ML VIAL IVPB ONE (01:03)
[2019-10-27] MEDS ORDERED: ceFAZolin SODIUM 1 GM VIAL IVPB ONE (01:03)
[2019-10-27] MEDS ORDERED: SODIUM CHLORIDE 0.9% 50 ML VIAL INJ ONE (01:03)
[2019-10-27] MEDS ORDERED: DEXAMETHASONE INJ 10 MG/ML VIAL IV ONE (01:03)
[2019-10-27] MEDS ORDERED: SODIUM CHLORIDE 0.9% (FLUSH) 10 ML SYG IV PRN (01:16)
[2019-10-27] MEDS ORDERED: MORPHINE SULFATE INJ 10 MG/ML VIAL IV PRN (01:16)
[2019-10-27] MEDS ORDERED: ACETAMINOPHEN 325 MG TAB PO PRN (01:16)
[2019-10-27] MEDS: DEX 5% W/NACL 0.45% 1000ML 1,000 ML IVS PRN ×2 (02:22→15:05)
[2019-10-27] MEDS: IV SET AND CAP CHANGE INJ INJ SCH (02:23)
[2019-10-27] MEDS ORDERED: SUMAtriptan SUCCINATE INJ 6 MG/0.5 ML VIAL SUBCU ONE (09:00)
[2019-10-27] MEDS ORDERED: LISINOPRIL 10 MG TAB PO ONE (09:01)
[2019-10-27] MEDS ORDERED: ACETAMINOPHEN IV 1000MG 1,000 MG in PREMIX BOTTLE 1 BOTTLE IVPB ONE (09:01)
[2019-10-27] MEDS ORDERED: PROPRANOLOL HCL 20 MG TAB PO ONE (09:04)
[2019-10-27] MEDS ORDERED: DIVALPROEX SODIUM ER 250 MG TAB PO ONE (09:06)
[2019-10-27] MEDS: HYDROmorphone HCL INJ 2 MG/ML VIAL IV PRN ×3 (11:07→21:41)
--- NOTE | 2019-10-27 11:07 | CONS ---
HISTORY OF PRESENT ILLNESS: The patient is a 64 year-old female who was admitted last night through the Emergency Room. This is her third Emergency Room visit in the last two weeks for nausea and vomiting and abdominal pain. This episode was brought on after eating dinner of a turkey sandwich with mayonnaise and cheese. There is no fever or chills. She also complains of a headache this morning. There is no history of dark urine or acholic stools. No history of hepatitis or jaundice. PAST MEDICAL HISTORY: 1. History of seizure disorder. 2. Hypertension. 3. Migraine headaches. 4. She has a history of gastric ulcers. CURRENT MEDICATIONS: Her medication list is in her medical record. ALLERGIES: NSAIDS, this is actually associated with her history of ulcers. IODINE AND REGLAN. FAMILY HISTORY: Positive for gastric cancer in her father. SOCIAL HISTORY: There is a history of tobacco abuse but no current alcohol use and no history of drug use. She is and lives at home with her . She is disabled. PHYSICAL EXAMINATION: GENERAL: The patient is awake but is confused or sedated. HEENT: Sclera nonicteric. NECK: Without tenderness. BACK: Without CVA tenderness. CHEST: She has equal breath sounds bilaterally. HEART: Regular rate and rhythm. ABDOMEN: Soft, there is tenderness in the right upper quadrant without mass or guarding. She has active bowel sounds. PELVIC/RECTAL: Examination deferred. EXTREMITIES: Without cyanosis, clubbing, or edema. LABORATORY: Normal liver function testing. Normal white blood cell count, hemoglobin and normal.lipase. RADIOLOGY: She underwent A CT scan which revealed some pericholecystic fluid and thickening of the gallbladder wall. IMPRESSION: Cholelithiasis, probably biliary colic with no fever and a normal white count, not consistent with cholecystitis. PLAN: Continue to treat the patient's pain and nausea and get her migraine headache under control. Will discuss the plan with the patient's . She was scheduled to see Dr. Burger for an appointment on Tuesday and surgery later. The plan is if we keep her or if she is ready to go home. Will plan a cholecystectomy Tuesday by me as Dr. Burger will be out Tuesday afternoon. [facility][id number] [facility]
[2019-10-27] MEDS: PROMETHAZINE HCL INJ 12.5 MG in SODIUM CHLORIDE 0.9% 50ML 50 ML IVPB PRN (20:44)
[2019-10-28] MEDS: SUMAtriptan SUCCINATE 50 MG TAB PO PRN (00:09)
[2019-10-28] MEDS: PROMETHAZINE HCL INJ 12.5 MG in SODIUM CHLORIDE 0.9% 50ML 50 ML IVPB PRN ×4 (00:56→20:25)
[2019-10-28] MEDS: NON-FORMULARY MEDICATION 1 EA MIS (Bisoprolol Fumarate [Bisoprolol Fumarate] 5 MG) PO SCH ×2 (01:04→20:21)
[2019-10-28] MEDS: risperiDONE 0.25 MG TAB PO SCH ×2 (01:05→20:22)
[2019-10-28] MEDS: traZODone HCL 50 MG TAB PO SCH ×2 (01:05→20:21)
[2019-10-28] MEDS: busPIRone HCL 5 MG TAB PO SCH ×2 (01:05→20:21)
[2019-10-28] MEDS: DEX 5% W/NACL 0.45% 1000ML 1,000 ML IVS PRN ×2 (03:37→20:14)
[2019-10-28] MEDS: HYDROmorphone HCL INJ 2 MG/ML VIAL IV PRN ×3 (07:57→20:22)
[2019-10-28] MEDS: LISINOPRIL 10 MG TAB PO SCH (08:15)
[2019-10-28] MEDS: PROPRANOLOL HCL 20 MG TAB PO SCH (08:15)
[2019-10-28] MEDS: DIVALPROEX SODIUM ER 250 MG TAB PO SCH (10:07)
[2019-10-28] MEDS ORDERED: ACETAMINOPHEN IV 1000MG 1,000 MG in PREMIX BOTTLE 1 BOTTLE IVPB ONE (12:42)
[2019-10-28] MEDS: ENOXAPARIN SODIUM 40 MG/0.4 ML SYG SUBCU SCH (13:25)
--- NOTE | 2019-10-28 21:28 | PN ---
SUPERVISING PHYSICIAN: Jonas Ocampo MD DATE: 10/28/19 SUBJECTIVE: The patient reports her headache is much better. She is still having some mild pain in her right upper quadrant, she is not having any associated nausea at this point. After discussing with her this morning, she does want to pursue surgical intervention and Dr. Garsia is planning to take her to surgery in the morning. As she has not followed through with previous plan of care and her amylase is elevated tonight, I did discuss keeping her overnight and doing the surgery in the morning at Dr. Garsia's request. OBJECTIVE: VITAL SIGNS: Temperature 98.5, pulse 71, blood pressure 119/72, respirations 16, oxygen saturation 96% on 2 liters nasal cannula. GENERAL: The patient is resting comfortably, does not appear to be in any acute distress. CHEST: Clear to auscultation. HEART: Regular rate and rhythm. ABDOMEN: Soft with some tenderness noted again throughout the upper quadrant. No rebound tenderness, no guarding. EXTREMITIES;: Without edema. NEUROLOGICAL: She is alert and oriented x3. LABORATORY Stable white count of 4, 300 without a left shift. Chemistries show normalized potassium, BUN 3, creatinine 0.54. Liver functions all within normal limits. She did show an elevation of amylase up to 241, lipase normal at 19. No radiological reports to review this morning. ASSESSMENT: 1. Cholelithiasis with probable biliary colic, can't completely rule out acute cholecystitis with patient seen by Dr. Garsia with plans to do laparoscopic cholecystectomy in the morning with the patient showing elevation of her amylase and continued pain management. 2. Chronic migraines on multiple medications showing to be stable. 3. Poorly controlled hypertension but stable at this point. 4. History of prescription medication abuse. 5. Gastroesophageal reflux disease. 6. Anxiety. PLAN: After discussion with the patient, she does want to have her gallbladder removed as this has been her problem for the last several weeks and she does have pain. Dr. Garsia discussed with me and the patient and at this point, he would prefer that she stay overnight because she has not followed up in the past and she has had an elevation in her amylase overnight and there are still concerns that she could be having some complications and is still requiring some aggressive pain management at this point. Again she has not been a patient who followed up with her medical care so we will go ahead and do the surgery in the morning as per Dr. Garsia's request. She will be made n.p.o. overnight and consent forms have been requested and anesthesia has been called. Will continue with pain control with Dilaudid and some IV Tylenol as needed. She does request Dilaudid and Phenergan together but we have explained to her that we will keep her pain controlled but will not provide her Phenergan with her Dilaudid each time unless she is actively having some nausea with some emesis due to the risk factors associated with the combination. I would anticipate her length of stay to be 24 to 48 hours, probably discharge tomorrow. Dr. Garsia does not want her on antibiotics at this point. He will do preoperative antibiotics in the morning. Until we can transition her to outpatient management, we will continue to monitor and treat as needed #[id number] [facility]
[2019-10-29] MEDS: HYDROmorphone HCL INJ 2 MG/ML VIAL IV PRN ×5 (00:39→20:36)
[2019-10-29] MEDS: PROMETHAZINE HCL INJ 12.5 MG in SODIUM CHLORIDE 0.9% 50ML 50 ML IVPB PRN ×3 (00:39→19:11)
[2019-10-29] MEDS ORDERED: PANTOPRAZOLE SODIUM IV 40 MG VIAL IV ONE (07:21)
[2019-10-29] MEDS: DEX 5% W/NACL 0.45% 1000ML 1,000 ML IVS PRN ×2 (07:37→12:57)
[2019-10-29] MEDS: PROPRANOLOL HCL 20 MG TAB PO SCH (09:42)
[2019-10-29] MEDS: DIVALPROEX SODIUM ER 250 MG TAB PO SCH (09:59)
[2019-10-29] MEDS: LISINOPRIL 10 MG TAB PO SCH (09:59)
[2019-10-29] MEDS: ENOXAPARIN SODIUM 40 MG/0.4 ML SYG SUBCU SCH (09:59)
[2019-10-29] MEDS ORDERED: FUROSEMIDE INJ 20 MG/2 ML VIAL ONE (10:02)
[2019-10-29] MEDS ORDERED: diltiaZEM HCL TAB 30 MG TAB ONE (10:02)
[2019-10-29] MEDS ORDERED: HEPARIN SODIUM (PORCINE) 10,000 UNITS/ML VIAL ONE (10:19)
[2019-10-29] MEDS ORDERED: BUPIVACAINE 0.25% W/EPI 50 ML VIAL INJ ONE (10:20)
[2019-10-29] MEDS ORDERED: ROCURONIUM BROMIDE 10 MG/ML VIAL ONE (11:03)
[2019-10-29] MEDS ORDERED: SUGAMMADEX SODIUM 200 MG/2 ML VIAL IV ONE (11:03)
[2019-10-29] MEDS ORDERED: HYDROmorphone HCL INJ 2 MG/ML VIAL ONE (11:03)
[2019-10-29] MEDS ORDERED: DEXMEDETOMIDINE HCL 200 MCG/2 ML INJ IV ONE (11:03)
[2019-10-29] MEDS ORDERED: KETAMINE HCL 100 MG/ML VIAL ONE (11:03)
[2019-10-29] MEDS ORDERED: MIDAZOLAM INJ 5 MG/5 ML VIAL ONE (11:15)
[2019-10-29] MEDS ORDERED: ceFAZolin SODIUM 1 GM VIAL IVPB ONE (11:45)
[2019-10-29] MEDS ORDERED: PROMETHAZINE HCL INJ 25 MG/ML VIAL ONE (13:13)
[2019-10-29] MEDS ORDERED: SODIUM CHLORIDE 0.9% 100ML 100 ML IVPB ONE (13:15)
[2019-10-29] MEDS ORDERED: LACTATED RINGERS 1,000 ML ONE (13:18)
--- NOTE | 2019-10-29 13:39 | OP ---
DATE OF PROCEDURE: 10/29/19 PREOPERATIVE DIAGNOSIS: 1. Cholelithiasis. 2. Right upper quadrant pain. 3. History of elevated lipase. POSTOPERATIVE DIAGNOSIS: 1. Cholelithiasis. 2. Right upper quadrant pain. 3. History of elevated lipase. 4. Chronic cholecystitis. 5. Possible choledocholithiasis. PROCEDURE: 1. Laparoscopic cholecystectomy with intraoperative cholangiography using fluoroscopy. SURGEON: Bhaskar Garsia MD. CASING MIXER: None. ANESTHESIA: Local infiltration of 0.25% Marcaine with epinephrine and general endotracheal anesthesia. INDICATION: The patient is a 64-year-old female who has had multiple episodes of right upper quadrant pain with radiation to the back from nausea and vomiting. She has had workup which revealed cholelithiasis and pericholecystic fluid and a thickened gallbladder wall consistent with cholecystitis. She had a normal white count, no fever. She was appointed to see Dr. Burger as an outpatient, but did not keep that appointment. Apparently there was some confusion and she went to Dr. Fitzpatrick's office. She came back to the Emergency Room Frank night. She still had normal white count, but had severe pain and had vomited multiple times, so she was admitted for rehydration. A repeat CT scan again revealed the pathology in the right upper quadrant, so she as admitted, made NPO and eventually tolerated a clear liquid diet. The risks, benefits and alternatives to surgery were discussed yesterday with the patient. She was brought to the Surgical Suite today for likely cholecystectomy. It is noted that her lipase was found to be elevated yesterday morning. It was still mildly elevated this morning, but had improved. FINDINGS: The gallbladder wall was thickened. There were some adhesions to the neck of the gallbladder. Intraoperative cholangiography initially showed a dilated common bile duct and common hepatic duct with a meniscus distally. When more contrast was introduced, the meniscus disappeared and the contrast drained into the duodenum. Also, a retrograde pancreatogram was obtained during this period of time. The upper biliary radicals showed no dilation, strictures and no stone was identified. There were adhesions from the stomach to the liver. No other pathology was identified in the abdominal examination. DESCRIPTION OF PROCEDURE: After adequate general endotracheal anesthesia was obtained, the patient was prepped and draped in the usual sterile manner. Surgical time-out was taken. The infraumbilical area was infiltrated with local anesthesia. A curvilinear incision was fashioned in the inferior aspect of the umbilicus. Dissection was carried down through the skin and subcutaneous tissue to the midline fascia. Traction sutures were placed on either side of the midline. A small incision was made in the midline fascia and the peritoneum was opened bluntly. Yan trocar was introduced under direct vision into the abdominal cavity and fixed in place with the 20 mL balloon. CO2 was then insufflated until a pressure of 12 mmHg was reached and the abdomen was tympanitic in all four quadrants. When this was done, the laparoscope was introduced. The abdomen was inspected with the previously noted findings. The patient was then placed in reverse Trendelenburg position and turned to the left side. The upper abdominal ports were placed under direct vision. The gallbladder was grasped, retracted anteriorly and laterally. The neck of the gallbladder was retracted laterally. The adhesions to the neck of the gallbladder were taken down using blunt dissection. When this was done, the susan hepatis was inspected. The cystic duct was identified. The cystic duct was hemoclipped once proximally. The cystic artery was hemoclipped twice proximally and once distally. A small incision was made in the cystic duct. The cholangiogram catheter was introduced through a separate stab wound in the right upper quadrant, introduced into the cystic duct and clipped in place. Cholangiograms were then taken using fluoroscopy which revealed free flow into the duodenum with no filling defects or strictures noted. When this was done, the cystic duct catheter was removed. The cystic duct was hemoclipped three times distally and divided between the hemoclips. The cystic artery was divided. The gallbladder was then dissected free from the gallbladder bed of the liver using electrocautery. It was then removed from the infraumbilical port site in the usual manner under direct vision. When this was done, the subhepatic space and subphrenic space were irrigated copiously with saline. The effluent was noted to be clear. The susan hepatis was inspected and no bleeding from the vessels or bile leak was identified. Inspection of the gallbladder bed of the liver revealed a small bile leak in the lateral aspect of the inferior aspect of the gallbladder bed. This was controlled by hemoclips. No further bleeding or problems were identified. The upper abdominal ports were removed under direct vision. At this point, the CO2, the laparoscope and the infraumbilical port were removed. The infraumbilical port site fascia was approximated with a single [id number] suture of 0 Vicryl. Subcutaneous tissue was irrigated with saline. Skin edges were approximated with 4-0 Vicryl subcuticular sutures, benzoin and Steri-Strips. Sterile dressings were applied. The patient was awakened and taken to the Recovery Room in good and stable condition. Estimated blood loss was 25 mL. All sponge, needle and instrument counts were correct. #[id number] [facility]
[2019-10-29] MEDS: hydrALAZINE HCl 20 MG/ML VIAL ONE ×2 (13:50→14:01)
[2019-10-29] MEDS: HYDROmorphone HCL INJ 2 MG/ML VIAL ONE ×2 (13:53→14:03)
[2019-10-29] MEDS: fentaNYL CITRATE INJ 50 MCG/ML 2 ML AMP ONE ×2 (14:20→14:30)
[2019-10-29] MEDS: SUMAtriptan SUCCINATE 50 MG TAB PO PRN (17:28)
[2019-10-29] MEDS: risperiDONE 0.25 MG TAB PO SCH (20:29)
[2019-10-29] MEDS: busPIRone HCL 5 MG TAB PO SCH (20:30)
[2019-10-29] MEDS: traZODone HCL 50 MG TAB PO SCH (20:30)
[2019-10-29] MEDS: NON-FORMULARY MEDICATION 1 EA MIS (Bisoprolol Fumarate [Bisoprolol Fumarate] 5 MG) PO SCH (20:52)
[2019-10-29] MEDS ORDERED: NEBIVOLOL 2.5 MG TAB PO ONE (21:32)
[2019-10-30] MEDS: cloNIDine HCL 0.1 MG TAB PO PRN ×2 (00:04→10:43)
[2019-10-30] MEDS: PROMETHAZINE HCL INJ 12.5 MG in SODIUM CHLORIDE 0.9% 50ML 50 ML IVPB PRN ×2 (00:04→04:38)
[2019-10-30] MEDS: DEX 5% W/NACL 0.45% 1000ML 1,000 ML IVS PRN (00:04)
[2019-10-30] MEDS: IV SET AND CAP CHANGE INJ INJ SCH (00:24)
[2019-10-30] MEDS: HYDROmorphone HCL INJ 2 MG/ML VIAL IV PRN ×3 (00:37→09:10)
--- NOTE | 2019-10-30 07:50 | RAD ---
EXAM: FL LESS THAN 1 HOUR DATE: 10/29/2019 Ordering provider: Shayne Alvarez NP CLINICAL INDICATION: IOC COMPARISON: 10/26/2019 CT abdomen pelvis FINDINGS: 2 intraoperative fluoroscopic images were submitted for review. Images demonstrate opacification of the common bile duct and duodenum. No filling defect or stricture identified. Please refer to operative report for details. Fluoroscopy time: 18.6 seconds IMPRESSION: Intraoperative fluoroscopy. Electronically signed by: Lance Mcdonald MD 10/30/2019 7:48 AM CDT
--- NOTE | 2019-10-30 07:58 | PN ---
SUPERVISING PHYSICIAN: Herminio Garcia MD DATE: 10/29/19 SUBJECTIVE: The patient is lying in bed asleep. She awakens easily. She just returned for surgery where she had a laparoscopic cholecystectomy per Dr. Bhaskar Garsia, general surgeon. She complains of pain, but she has recently gotten pain medication. She denies any nausea or vomiting. No chest pain. OBJECTIVE: VITAL SIGNS: Temperature 98.2, heart rate 82, blood pressure 137/92, respiratory rate 18, O2 saturation 94% on 2 liters nasal cannula. RESPIRATORY: Essentially clear to auscultation bilaterally. CARDIAC: Regular rate and rhythm. GASTROINTESTINAL: Abdomen is soft. It is diffusely tender. The band-aids and Steri-Strips to her abdomen are clean, dry and intact. Bowel sounds are hypoactive. NEUROLOGIC: She sleepy, but oriented times three. LABORATORY: WBCs 4,300, hemoglobin 13.7, hematocrit 41.2. Electrolytes are basically within normal limits. Amylase is 167, lipase 18. All other labs and films have been reviewed via the EMR. ASSESSMENT: 1. Cholelithiasis status post laparoscopic cholecystectomy per Dr. Bhaskar Garsia, general surgeon, postoperative day #0. 2. Chronic migraines on multiple medications, stable. 3. Poorly controlled hypertension but stable at this point. 4. History of prescription medication abuse. 5. Gastroesophageal reflux disease. 6. Anxiety. PLAN: We will continue present supportive care. Operative issues will be per Dr. Bhaskar Garsia, general surgeon. He has ordered labs and x-rays for in the morning. We will continue her Dilaudid as previously ordered and adjust as necessary. We will encourage good pulmonary hygiene. We will continue to monitor the patient closely and follow as needed. #[id number] [facility]
[2019-10-30] MEDS: PROPRANOLOL HCL 20 MG TAB PO SCH (09:03)
[2019-10-30] MEDS: LISINOPRIL 10 MG TAB PO SCH (09:03)
[2019-10-30] MEDS: ENOXAPARIN SODIUM 40 MG/0.4 ML SYG SUBCU SCH (09:04)
[2019-10-30] MEDS ORDERED: traMADol HCL 50 MG TAB PO PRN (10:14)
[2019-10-30] MEDS ORDERED: PROMETHAZINE HCL 25 MG TAB PO PRN (10:15)
[2019-10-30 11:06] VITALS: BP 163/110; TEMP 97.5
[2019-10-30] MEDS ORDERED: HYDROcodone 5MG/APAP 325MG 1 EA TAB PO ONE (12:59)
[2019-10-30] MEDS: DIVALPROEX SODIUM ER 250 MG TAB PO SCH (13:11)
--- NOTE | 2019-10-30 13:46 | DS ---
SUPERVISING PHYSICIAN: Herminio Garcia MD DISCHARGE DIAGNOSIS: 1. Cholelithiasis status post laparoscopic cholecystectomy per Dr. Bhaskar Garsia, general surgeon, postoperative day #1. 2. Chronic migraines on multiple medications, stable. 3. Poorly controlled hypertension but stable at this point. 4. History of prescription medication abuse. 5. Gastroesophageal reflux disease. 6. Anxiety. HISTORY OF PRESENT ILLNESS: This is a 64 year-old female patient who has a history of chronic pain and was recently admitted at [facility] for right upper quadrant abdominal pain. She presented to the Emergency Department the previous night before admission with similar symptoms of right upper quadrant pain. She had been in the Emergency Room 3 times in the prior week for right upper quadrant abdominal pain. CT of the abdomen showed wall thickening with concerns for cholecystitis. At that point, she was discharged from the hospital and seen by Dr. Burger who recommended conservative management be done and she could be seen as an outpatient for a cholecystectomy later in the week. She endorses that her pain had not been controlled on oral medication and she had multiple episodes of nausea and vomiting. She denied any fever, chills, chest pain or shortness of breath. Laboratory studies showed a white count of 4,100 without a left shift. Chemistries showed a mildly elevated potassium of 5.4, otherwise liver functions and all electrolytes were within normal limits. Urinalysis was within normal limits. Her abdominal/pelvic CT again mildly contracted gallbladder with some gallbladder wall thickening and edema. Given her symptomatology and multiple trips to the Emergency Room with failure to control her pain, she was placed in observation with consultation by Dr. Garsia for reevaluation and surgery. She was placed in observation in stable condition. HOSPITAL COURSE: She was placed on clear liquids initially and made NPO overnight, given pain management and IV fluids. She was unable to transition to oral medications, so it was felt that a laparoscopic cholecystectomy should be done on Tuesday per Dr. Bhaskar Garsia. She went to surgery on Tuesday. There were no intraoperative complications. She was changed to an inpatient due to her pain issues as well as multiple visits to the hospital. She was initially given IV pain medication and her diet was slowly advanced. She then was transitioned off of the IV pain medications and transitioned to p.o. pain medications. She has been up walking in the hallway and Dr. Garsia saw her in followup and she will be discharged home in stable condition. LABORATORY: WBC stable at 4.8, hemoglobin and hematocrit stable at 14.4 and 43.2. Sodium stable at 129. Potassium went up to 5.4 and then went down to 3.4. She received supplementation today. Chloride was stable at 106, BUN 6, creatinine 0.54, calcium 9.5, magnesium 1.8. Liver enzymes were within normal limits. Amylase initially was 241 and has gone down to 157. Lipase was 27 and went down to 19, then back up to 23. Urinalysis was unremarkable. RADIOLOGY: As per history of present illness. DISCHARGE PLAN: The patient will be discharged home in stable condition. She is to continue with low-fat diet and make sure she gets plenty of fluids, mostly non-caffeinated. She is to increase her activity and walk as much as possible. In addition to her routine home medications, Dr. Garsia gave her some Girard for pain. She is to followup with Dr. Fitzpatrick in 1 to 2 weeks. She is to call Dr. Garsia's office to make a followup appointment for next week. His office phone number was given to her. She is to return to the hospital or followup with Dr. Fitzpatrick or Dr. Garsia for any problems or complications. DISCHARGE MEDICATIONS: 1. Imitrex. 2. Trazodone. 3. Propranolol. 4. Lisinopril. 5. Depakote. 6. Buspirone. 7. Bisoprolol. 8. Risperidone. 9. Hydrocodone. 10. Tramadol. #[id number] [facility]
[2019-10-30 13:49] VITALS: O2SAT 93
[2019-10-30] MEDS ORDERED: DIVALPROEX SODIUM ER 250 MG TAB PO SCH (21:00)
== END 2019-10-30 13:50 | disposition home or self-care (01) | DRG 419 ==
LOC: ER 22:02 → MS 10-27 01:02 → OBSVTOIN 10-27 01:02
PROVIDERS: ADMIT Nurse Practitioner Family; ATTEND Nurse Practitioner Acute Care
PROC: BW211ZZ Computerized Tomography (CT Scan) of Abdomen and Pelvis using Low Osmolar Contrast (ICD-10-PCS; 2019-10-26)
PROC: BF131ZZ Fluoroscopy of Gallbladder and Bile Ducts using Low Osmolar Contrast (ICD-10-PCS; 2019-10-29)
PROC: 0FT44ZZ Resection of Gallbladder, Percutaneous Endoscopic Approach (ICD-10-PCS; principal; 2019-10-29 11:30)
DX: K80.00 Calculus of gallbladder with acute cholecystitis without obstruction (principal); K80.10 Calculus of gallbladder with chronic cholecystitis without obstruction; I10 Essential (primary) hypertension; K21.9 Gastro-esophageal reflux disease without esophagitis; K44.9 Diaphragmatic hernia without obstruction or gangrene; G40.909 Epilepsy, unspecified, not intractable, without status epilepticus; G43.909 Migraine, unspecified, not intractable, without status migrainosus; F41.9 Anxiety disorder, unspecified; G89.29 Other chronic pain; F17.290 Nicotine dependence, other tobacco product, uncomplicated; Z88.8 Allergy status to other drugs, medicaments and biological substances; Z91.048 Other nonmedicinal substance allergy status; Z88.6 Allergy status to analgesic agent; Z88.3 Allergy status to other anti-infective agents; Z79.899 Other long term (current) drug therapy; Z87.11 Personal history of peptic ulcer disease

== ENCOUNTER 2019-11-02 05:26 | Emergency (ER) | payer OTHER, SELFPAY ==
--- NOTE | 2019-11-02 05:50 | ED.PDOC ---
History of Present Illness - General Additional Information: Patient is a 64-year-old female who presents to the ED with chief complaint of abdominal pain and vomiting. Patient was admitted at [facility] 5 days ago for biliary colic and patient had a cholecystectomy. She was doing well and was discharged home the following day and remained well until this morning when she is was awoken at approximately 3:00 with central abdominal pain and vomiting. Patient describes the pain as 8/10 and sharp. She felt the need to have a bowel movement along with the pain and had a nonbloody soft stool bowel movement. Patient denies fever, chills, chest pain, shortness of breath. Patient is otherwise asymptomatic. <Johann Garcia - Last Filed: 11/02/19 06:48> <Stuart Garcia - Last Filed: 11/02/19 10:06> - General Chief Complaint: Abdominal Pain Stated Complaint: my stomach hurts and I'm nauseated Time Seen by Provider: 11/02/19 05:43 Review of Systems - Review of Systems Constitutional: States: no symptoms reported. Denies: chills, fever Respiratory: States: no symptoms reported. Denies: cough, short of breath Cardiology: States: no symptoms reported. Denies: chest pain, palpitations Gastrointestinal/Abdominal: States: see HPI, abdominal pain, nausea, vomiting. Denies: diarrhea Genitourinary: States: no symptoms reported. Denies: dysuria Musculoskeletal: States: no symptoms reported Skin: States: no symptoms reported Neurological: States: no symptoms reported All other Systems: Reviewed and Negative <Johann Garcia - Last Filed: 11/02/19 06:48> Past Medical History (General) - Patient Medical History Hx Seizures: Yes Hx Stroke: No Hx Dementia: No Hx Asthma: No Hx of COPD: No Hx Cardiac Disorders: No Hx Congestive Heart Failure: No Hx Pacemaker: No Hx Hypertension: Yes Hx Thyroid Disease: No Hx Diabetes: No Hx Gastroesophageal Reflux: Yes - hx gastric ulcers Hx Renal Disease: No Hx Cancer: No Hx of HIV: No Hx Hepatitis C: No Hx MRSA: No - Vaccination History Hx Tetanus, Diphtheria Vaccination: No Hx Influenza Vaccination: No Hx Pneumococcal Vaccination: No - Social History Hx Tobacco Use: Yes Hx Chewing Tobacco Use: No Hx Alcohol Use: No Hx Substance Use: No Hx Substance Use Treatment: No Hx Depression: Yes Hx Physical Abuse: No Hx Emotional Abuse: No Hx Suspected Abuse: No - Female History Patient : No <Johann Garcia Filed: 11/02/19 06:48> Family Medical History - Family History Son Family History: No Known Hx Family Cancer: Yes - parents(mom-gastric;dad-unknownt type) Mother Living Status: Cause of : cancer Father Family History: Unknown Living Status: Cause of : cancer <Johann Garcia Filed: 11/02/19 06:48> Physical Exam - Physical Exam General Appearance: Alert, Comfortable, No apparent distress Neck: supple, normal inspection Respiratory: chest non-tender, lungs clear, normal breath sounds, no respiratory distress Cardiovascular/Chest: normal peripheral pulses, regular rate, rhythm, no edema, no gallop, no JVD, no murmur Gastrointestinal/Abdominal: normal bowel sounds, soft, tenderness - Mild to moderate diffuse tenderness to palpation., other - Negative guarding. Well- healing surgical laparoscopic incision sites. There is an old well-healed midline surgical scar. Back Exam: normal inspection, no CVA tenderness Extremity: non-tender, normal inspection, no pedal edema Neurologic: rotary cutter II-XII nml as tested, no motor/sensory deficits, alert, normal mood/affect, oriented x 3 Skin Exam: normal color, warm/dry <Johann Garcia Filed: 11/02/19 06:48> Progress - Progress Progress: 11/02/19 06:49 Patient reassessed and is feeling slightly better at this time. Her labs including WBC, LFTs and lipase are normal, her CT is pending. Patient discussed with and turned over to Dr. Mcnair for continued care and disposition based upon CT results. <Johann Garcia Filed: 11/02/19 06:48> - Progress Progress: 11/02/19 06:59 Dr. Garcia assumed care of this patient at this time. Reviewed labs, vital signs, CT abdomen/pelvis pending. Will likely discuss with general surgery once CT is resulted.I know this patient well. I took care of her last week prior to her recent admission for acute cholecystitis during which time she had a cholecystectomy. She is well-known to the emergency room for frequent ED visits and opiate seeking behavior.[facility] has been reviewed. 11/02/19 07:[address] Garsia. Reviewed labs, CT findings. Requested MRCP due to intraductal dilatation. Will discuss with radiology regarding openings for MRCP today. 11/02/19 07:44 Radiology will take to MRCP at 10 AM. This will be done on an outpatient basis. I will keep her in the emergency room until that time, then she will be d ischarged to get MRCP done as an outpatient. 11/02/19 09:52 Rechecked. Patient resting comfortably after IM Haldol and repeat dose of morphine. Pain well controlled. Plan to discharge home from the emergency department with plan to go directly to MRCP, then home. - Results/Orders Results/Orders: CT ABDOMEN AND PELVIS WITH CONTRAST. CLINICAL HISTORY: Abdominal pain. COMPARISON: CT abdomen and pelvis 10/26/2019 TECHNIQUE: Axial CT imaging of the abdomen and pelvis performed with intravenous contrast. Reformatted coronal and sagittal images reviewed. A dose reduction technique was utilized with automated exposure control according to patient size. FINDINGS: Mild bilateral lower lobe and right middle lobe atelectasis. Heart is normal in size. The liver is normal in size, contour, and attenuation. There is moderate diffuse intrahepatic biliary duct dilatation. The common bile duct is dilated to 1.6 cm. No distal obstructing stone. Gallbladder has been resected. Normal spleen, pancreas, adrenal glands, and left kidney. Right kidney contains numerous small cysts with mild renal pelvic dilatation. Right ureter is nondilated. There is moderate abdominal aorta atherosclerosis. No aneurysm. Normal caliber inferior vena cava. No adenopathy. Normal stomach and small bowel loops. Normal appendix in the right lower quadrant. There is mild diffuse thickening of the wall of the descending and sigmoid colon with mild pericolonic edema. A few scattered diverticula are also present in the descending colon. There is no ascites or free air. Normal bladder and uterus. No pelvic free fluid or adenopathy.. IMPRESSION: 1. Diffuse intra and extrahepatic biliary duct dilatation without evidence of pancreatitis or mass. 2. Mild colitis involving the distal descending and sigmoid colon. Electronically signed by: Josefina Jiménez DO 11/02/2019 7:07 AM CDT Laboratory Results - last 24 hr 11/02/19 11/02/19 11/02/19 06:10 06:10 06:10 WBC 3.6 L RBC 4.05 L Hgb 12.7 Hct 38.1 MCV 94.1 MCH 31.4 H MCHC 33.4 RDW 14.7 H Plt Count 177 MPV 7.1 L Absolute Neuts (auto) 1.50 L Absolute Lymphs (auto) 1.30 Absolute Monos (auto) 0.50 Absolute Eos (auto) 0.20 Absolute Basos (auto) 0.00 Neutrophils % 42.1 Lymphocytes % 37.3 Monocytes % 13.4 H Eosinophils % 6.5 H Basophils % 0.7 Sodium 141 Potassium 4.0 Chloride 107 Carbon Dioxide 25 Anion Gap 13.0 BUN 15 Creatinine 0.73 BUN/Creatinine Ratio 20.5 H Random Glucose 96 Serum Osmolality 282.0 Lactic Acid 1.6 Calcium 8.8 Total Bilirubin 0.2 AST 23 ALT 21 Alkaline Phosphatase 72 Serum Total Protein 6.7 Albumin 3.5 Globulin 3.2 Albumin/Globulin Ratio 1.1 Lipase 26 Urine Color Urine Appearance Urine pH Ur Specific [place] Urine Protein Urine Glucose (UA) Urine Ketones Urine Blood Urine Nitrite Urine Bilirubin Urine Urobilinogen Ur Leukocyte Esterase Urine RBC Urine WBC Ur Epithelial Cells Amorphous Sediment Urine Bacteria 11/02/19 07:28 WBC RBC Hgb Hct MCV MCH MCHC RDW Plt Count MPV Absolute Neuts (auto) Absolute Lymphs (auto) Absolute Monos (auto) Absolute Eos (auto) Absolute Basos (auto) Neutrophils % Lymphocytes % Monocytes % Eosinophils % Basophils % Sodium Potassium Chloride Carbon Dioxide Anion Gap BUN Creatinine BUN/Creatinine Ratio Random Glucose Serum Osmolality Lactic Acid Calcium Total Bilirubin AST ALT Alkaline Phosphatase Serum Total Protein Albumin Globulin Albumin/Globulin Ratio Lipase Urine Color Yellow Urine Appearance Clear Urine pH 6.0 Ur Specific [place] 1.010 Urine Protein Negative Urine Glucose (UA) Negative Urine Ketones Negative Urine Blood Negative Urine Nitrite Negative Urine Bilirubin Negative Urine Urobilinogen 0.2 Ur Leukocyte Esterase Negative Urine RBC 0 Urine WBC 0 Ur Epithelial Cells 0-1 Amorphous Sediment 1+ Urine Bacteria 0 <Stuart Garcia - Last Filed: 11/02/19 10:06> Departure <Johann Garcia - Last Filed: 11/02/19 06:48> <Stuart Garcia - Last Filed: 11/02/19 10:06> - Departure Clinical Impression: Postoperative abdominal pain, S/P laparoscopic cholecystectomy Abdominal pain Qualifiers: Abdominal location: unspecified location Qualified Code(s): R10.9 - Unspecified abdominal pain Disposition: Discharge to Home or Self Care Condition: Fair Departure Forms: ED Discharge - Pt. Copy, Patient Portal Self Enrollment Instructions: DI for Abdominal Pain-Adult Referrals: Bhaskar Garsia MD [Active Staff] - 1-5 Days Aram Fitzpatrick MD [Primary Care Provider] - 1-2 Weeks Prescriptions: Hydrocodone-Acetaminophen [[place] 5-325 mg] 1 - 2 tab PO Q6H PRN #12 tab PRN Reason: Severe Pain Home Medications: Ambulatory Orders Sumatriptan Succinate [Imitrex] 100 mg PO PRN PRN MDD 2 in 24hr 09/01/18 Bisoprolol Fumarate 5 mg PO BEDTIME 10/18/19 Buspirone HCl [Buspirone Hydrochloride] 10 mg PO BEDTIME 10/18/19 Divalproex Sodium [Depakote ER] 750 mg PO DAILY 10/18/19 Lisinopril 10 mg PO DAILY 10/18/19 Propranolol HCl 40 mg PO DAILY 10/18/19 Trazodone HCl [Trazodone Hydrochloride] 50 mg PO BEDTIME 10/18/19 risperiDONE [Risperdal] 0.25 mg PO BEDTIME 10/18/19 Hydrocodone-Acetaminophen [[place] 5-325 mg] 1 tab PO Q6H PRN #20 tab 10/30/19 Hydrocodone-Acetaminophen [[place] 5-325 mg] 1 - 2 tab PO Q6H PRN #12 tab 11/02/19 Additional Instructions: Go directly to outpatient imaging for MRCP. Dr. Garsia asked you to call him directly if you have any further complications or issues. Return to the emergency room immediately for fever, intractable vomiting, uncontrollable pain, or any other concerns Addendum entered and electronically signed by Stuart Garcia DO 11/02/19 16:38: ED Addendum - ED Addendum Addendum: ER addendum made 4:38 PM. MRCP results were reviewed. MRCP within normal limits status post cholecystectomy. No acute process. CLINICAL HISTORY PROVIDED: DISEASES OF BILIARY TRACT TECHNIQUE: Multiplanar, multisequence MR images of the abdomen. MRCP images provided COMPARISON: November 02, 2019 FINDINGS: The distal common bile duct measures 9 mm which is within normal limits status post cholecystectomy. No filling defect or stricture identified. Improved intrahepatic biliary dilatation. Hepatic cyst. No suspicious hepatic lesion. Cholecystectomy. Normal caliber portal vein. The spleen, pancreas and adrenal glands are unremarkable. Right renal cyst. No hydronephrosis. The visualized bowel is normal in caliber without evidence of obstruction or focal inflammatory change. No focal marrow signal abnormality. I MPRESSION: Prominent common bile duct measuring 9 mm which is within normal limits status post cholecystectomy. No filling defect or stricture identified. Electronically signed by: Wiliam Diaz MD 11/02/2019 3:02 PM Departure - Departure Clinical Impression: Postoperative abdominal pain, S/P laparoscopic cholecystectomy Abdominal pain Qualifiers: Abdominal location: unspecified location Qualified Code(s): R10.9 - Unspecified abdominal pain Disposition: Discharge to Home or Self Care Condition: Fair Departure Forms: ED Discharge - Pt. Copy, Patient Portal Self Enrollment Instructions: DI for Abdominal Pain-Adult Referrals: Bhaskar Garsia MD [Active Staff] - 1-5 Days Aram Fitzpatrick MD [Primary Care Provider] - 1-2 Weeks Prescriptions: Hydrocodone-Acetaminophen [Stamps 5-325 mg] 1 - 2 tab PO Q6H PRN #12 tab PRN Reason: Severe Pain Home Medications: Ambulatory Orders Sumatriptan Succinate [Imitrex] 100 mg PO PRN PRN MDD 2 in 24hr 09/01/18 Bisoprolol Fumarate 5 mg PO BEDTIME 10/18/19 Buspirone HCl [Buspirone Hydrochloride] 10 mg PO BEDTIME 10/18/19 Divalproex Sodium [Depakote ER] 750 mg PO DAILY 10/18/19 Lisinopril 10 mg PO DAILY 10/18/19 Propranolol HCl 40 mg PO DAILY 10/18/19 Trazodone HCl [Trazodone Hydrochloride] 50 mg PO BEDTIME 10/18/19 risperiDONE [Risperdal] 0.25 mg PO BEDTIME 10/18/19 Hydrocodone-Acetaminophen [[place]amps 5-325 mg] 1 tab PO Q6H PRN #20 tab 10/30/19 Hydrocodone-Acetaminophen [[place] 5-325 mg] 1 - 2 tab PO Q6H PRN #12 tab 11/02/19 Additional Instructions: Go directly to outpatient imaging for MRCP. Dr. Garsia asked you to call him directly if you have any further complications or issues. Return to the emergency room immediately for fever, intractable vomiting, uncontrollable pain, or any other concerns
[2019-11-02] MEDS: SODIUM CHLORIDE 0.9% 1000ML 1,000 ML IVS ONE (06:00)
[2019-11-02] MEDS: MORPHINE SULFATE INJ 10 MG/ML VIAL IV ONE ×2 (06:01→07:35)
--- NOTE | 2019-11-02 07:08 | CT ---
CT ABDOMEN AND PELVIS WITH CONTRAST. CLINICAL HISTORY: Abdominal pain. COMPARISON: CT abdomen and pelvis 10/26/2019 TECHNIQUE: Axial CT imaging of the abdomen and pelvis performed with intravenous contrast. Reformatted coronal and sagittal images reviewed. A dose reduction technique was utilized with automated exposure control according to patient size. FINDINGS: Mild bilateral lower lobe and right middle lobe atelectasis. Heart is normal in size. The liver is normal in size, contour, and attenuation. There is moderate diffuse intrahepatic biliary duct dilatation. The common bile duct is dilated to 1.6 cm. No distal obstructing stone. Gallbladder has been resected. Normal spleen, pancreas, adrenal glands, and left kidney. Right kidney contains numerous small cysts with mild renal pelvic dilatation. Right ureter is nondilated. There is moderate abdominal aorta atherosclerosis. No aneurysm. Normal caliber inferior vena cava. No adenopathy. Normal stomach and small bowel loops. Normal appendix in the right lower quadrant. There is mild diffuse thickening of the wall of the descending and sigmoid colon with mild pericolonic edema. A few scattered diverticula are also present in the descending colon. There is no ascites or free air. Normal bladder and uterus. No pelvic free fluid or adenopathy.. IMPRESSION: 1. Diffuse intra and extrahepatic biliary duct dilatation without evidence of pancreatitis or mass. 2. Mild colitis involving the distal descending and sigmoid colon. Electronically signed by: Josefina Jiménez DO 11/02/2019 7:07 AM CDT
[2019-11-02] MEDS: PROMETHAZINE HCL INJ 25 MG in SODIUM CHLORIDE 0.9% 50ML 50 ML IVPB ONE (07:11)
[2019-11-02] MEDS: HALOPERIDOL LACTATE INJ 5 MG/ML VIAL IM ONE (07:38)
[2019-11-02] MEDS: HYDROcodone 5MG/APAP 325MG 1 EA TAB PO ONE (07:40)
[2019-11-02 10:13] VITALS: BP 163/108; TEMP 98.8; O2SAT 96
== END 2019-11-02 10:01 | disposition home or self-care (01) ==
LOC: ER 05:26
DX: G89.18 Other acute postprocedural pain (principal); R10.9 Unspecified abdominal pain; I10 Essential (primary) hypertension; R11.10 Vomiting, unspecified; F17.200 Nicotine dependence, unspecified, uncomplicated

== ENCOUNTER → 2019-11-02 | Outpatient (CLI) | payer OTHER ==
--- NOTE | 2019-11-02 15:03 | MRI ---
CLINICAL HISTORY PROVIDED: DISEASES OF BILIARY TRACT TECHNIQUE: Multiplanar, multisequence MR images of the abdomen. MRCP images provided COMPARISON: November 02, 2019 FINDINGS: The distal common bile duct measures 9 mm which is within normal limits status post cholecystectomy. No filling defect or stricture identified. Improved intrahepatic biliary dilatation. Hepatic cyst. No suspicious hepatic lesion. Cholecystectomy. Normal caliber portal vein. The spleen, pancreas and adrenal glands are unremarkable. Right renal cyst. No hydronephrosis. The visualized bowel is normal in caliber without evidence of obstruction or focal inflammatory change. No focal marrow signal abnormality. IMPRESSION: Prominent common bile duct measuring 9 mm which is within normal limits status post cholecystectomy. No filling defect or stricture identified. Electronically signed by: Wiliam Diaz MD 11/02/2019 3:02 PM CDT
== END ==
LOC: MRI 09:56
PROVIDERS: ATTEND Student in an Organized Health Care Education/Training Program
DX: K83.8 Other specified diseases of biliary tract (principal); Z90.49 Acquired absence of other specified parts of digestive tract

== ENCOUNTER 2019-11-05 04:28 | Emergency (ER) | payer OTHER, SELFPAY ==
[2019-11-05] MEDS ORDERED: MORPHINE SULFATE INJ 10 MG/ML VIAL IM ONE (04:49)
--- NOTE | 2019-11-05 04:55 | ED.PDOC ---
History of Present Illness - General Information Source: patient, RN notes reviewed, Vital Signs reviewed Additional Information: 64yo F with recent cholecystectomy presents for RUQ pain. Reports constant pain since after procedure associated with nausea and vomiting. Denies fever, jaundice, blood in stool/vomiting, cough, recent illness of other complaints. Reports she is passing gas and having bowel movements. No other complaints at this time. <Bruno Salazar - Last Filed: 11/05/19 06:31> <Gio Mohan - Last Filed: 11/05/19 07:22> - General Chief Complaint: Abdominal Pain Stated Complaint: abdomen pain post [place] surgery, poss. stone stuck Time Seen by Provider: 11/05/19 04:49 Review of Systems - Review of Systems Constitutional: Denies: chills, fever Cardiology: States: no symptoms reported Gastrointestinal/Abdominal: States: no symptoms reported Musculoskeletal: States: no symptoms reported <Bruno Salazar - Last Filed: 11/05/19 06:31> Past Medical History (General) - Patient Medical History Hx Seizures: Yes Hx Stroke: No Hx Dementia: No Hx Asthma: No Hx of COPD: No Hx Cardiac Disorders: No Hx Congestive Heart Failure: No Hx Pacemaker: No Hx Hypertension: Yes Hx Thyroid Disease: No Hx Diabetes: No Hx Gastroesophageal Reflux: Yes - hx gastric ulcers Hx Renal Disease: No Hx Cancer: No Hx of HIV: No Hx Hepatitis C: No Hx MRSA: No - Vaccination History Hx Tetanus, Diphtheria Vaccination: No Hx Influenza Vaccination: No Hx Pneumococcal Vaccination: No - Social History Hx Tobacco Use: Yes Hx Chewing Tobacco Use: No Hx Alcohol Use: No Hx Substance Use: No Hx Substance Use Treatment: No Hx Depression: Yes Hx Physical Abuse: No Hx Emotional Abuse: No Hx Suspected Abuse: No - Female History Patient : No <Bruno Salazar - Last Filed: 11/05/19 06:31> Family Medical History - Family History Son Family History: No Known Hx Family Cancer: Yes - parents(mom-gastric;dad-unknownt type) Mother Living Status: Cause of : cancer Father Family History: Unknown Living Status: Cause of : cancer <Bruno Salazar - Last Filed: 11/05/19 06:31> Physical Exam - Physical Exam General Appearance: Alert, Comfortable, Well Developed, Well Nourished Eyes, Ears, Nose, Throat Exam: PERRL/EOMI, normal ENT inspection Neck: non-tender, full range of motion, supple Respiratory: chest non-tender, lungs clear, normal breath sounds Cardiovascular/Chest: normal peripheral pulses, regular rate, rhythm, no edema Gastrointestinal/Abdominal: non tender, soft, other - surgical incision sites with no erythema, discharge, or dehiscence noted Extremity: normal range of motion, non-tender Neurologic: online retailer II-XII nml as tested Skin Exam: normal color, warm/dry <Bruno Salazar - Last Filed: 11/05/19 06:31> Progress - Progress Progress: 11/05/19 06:32 64yo F h/o cholecystectomy now with pain in post-operative period. Seen previously for similar, noted to have possible MRCP at that time. However, she reports pain persists and has not run out of hydrocodone. Abdomen soft and non- tender. No noted chest pain or anginal equivalency to indicate ACS, PE, aortic pathology. Low suspicion for obstruction, as she reports passing gas and stool. Low suspicion for ischemia as well. Plan for labs, pain control PRN, repeat imaging, and reassess. Handoff from to [facility] pending imaging, reassessment, and disposition. Bruno Salazar MD I was wearing a mask and patient was wearing a mask for the entire encounter. I maintained a distance of 6ft from patient at all times except for brief times to perform a physical exam. Institutional screening policies were performed (at triage). <Bruno Salazar - Last Filed: 11/05/19 06:31> - Progress Progress: I was able to speak with Dr. Garsia, CT of the abdomen did not show any evidence of obstruction perforation, and there is significant amount of stools on imaging. Patient kept requesting for IV Phenergan and asked me to write a prescription for [place] and that she wants to be discharged home The neurosurgeon that performed the procedure order MRCP and the results of the study were negative I am very concerned for drug-seeking behavior, given that she told me that she ran out of her hydrocodone, patient will be discharged home and the recommendation from the general surgeon was discharged home with enema and have her follow-up primary care physician 11/05/19 07:19 <Gio Mohan - Last Filed: 11/05/19 07:22> Departure <Bruno Salazar - Last Filed: 11/05/19 06:31> - Departure Diet: full liquid diet <Gio Mohan - Last Filed: 11/05/19 07:22> - Departure Clinical Impression: Abdominal pain Qualifiers: Abdominal location: right upper quadrant Qualified Code(s): R10.11 - Right upper quadrant pain Disposition: Discharge to Home or Self Care Instructions: DI for Abdominal Pain-Adult Referrals: Aram Fitzpatrick MD [Primary Care Provider] - 1-2 Weeks Prescriptions: Sodium Phos/Biphos Enema Adult [Fleet Enema (Adult)] 1 ml MO .PRN #1 bttl Home Medications: Ambulatory Orders Sumatriptan Succinate [Imitrex] 100 mg PO PRN PRN MDD 2 in 24hr 09/01/18 Bisoprolol Fumarate 5 mg PO BEDTIME 10/18/19 Buspirone HCl [Buspirone Hydrochloride] 10 mg PO BEDTIME 10/18/19 Divalproex Sodium [Depakote ER] 750 mg PO DAILY 10/18/19 Lisinopril 10 mg PO DAILY 10/18/19 Propranolol HCl 40 mg PO DAILY 10/18/19 Trazodone HCl [Trazodone Hydrochloride] 50 mg PO BEDTIME 10/18/19 risperiDONE [Risperdal] 0.25 mg PO BEDTIME 10/18/19 Hydrocodone-Acetaminophen [[place] 5-325 mg] 1 tab PO Q6H PRN #20 tab 10/30/19 Hydrocodone-Acetaminophen [[place] 5-325 mg] 1 - 2 tab PO Q6H PRN #12 tab 11/02/19 Sodium Phos/Biphos Enema Adult [Fleet Enema (Adult)] 1 ml MO .PRN #1 bttl 11/05/19 Additional Instructions: Please add more fiber and liquids to your diet
[2019-11-05] MEDS ORDERED: MORPHINE SULFATE INJ 10 MG/ML VIAL IV ONE (05:00)
[2019-11-05] MEDS ORDERED: PROMETHAZINE HCL 25 MG TAB PO ONE (06:15)
[2019-11-05] MEDS ORDERED: HALOPERIDOL LACTATE INJ 5 MG/ML VIAL IV ONE (06:47)
--- NOTE | 2019-11-05 07:11 | CT ---
EXAM: CT Abdomen and Pelvis With Intravenous Contrast CLINICAL HISTORY: continued RUQ s/p cholecystectomy and MRCP TECHNIQUE: Axial computed tomography images of the abdomen and pelvis with intravenous contrast. Sagittal and coronal reformatted images were created and reviewed. This CT exam was performed using one or more of the following dose reduction techniques: automated exposure control, adjustment of the mA and/or kV according to patient size, and/or use of iterative reconstruction technique. COMPARISON: 11/02/2019. FINDINGS: Lung bases: Stable coarse basilar airspace consolidation right greater than left. ABDOMEN: Liver: Stable intrahepatic biliary dilatation. Gallbladder and bile ducts: Cholecystectomy. Common bile duct measures about 9 mm thickness unchanged. No stones noted. Pancreas: Unremarkable. No mass. No ductal dilation. Spleen: Unremarkable. No splenomegaly. Adrenals: Unremarkable. No mass. Kidneys and ureters: Stable 1.4 cm cyst right kidney. Left kidney appears normal. There is no change punctate stone lower pole right kidney. No hydronephrosis. Stomach and bowel: The stomach is distended with a recent meal. There is diffuse moderate colonic sparing the ascending colon which is collapsed. Mild thickening not excluded. No small bowel distention. PELVIS: Appendix: No findings to suggest acute appendicitis. Bladder: Unremarkable. No mass. Reproductive: Unremarkable as visualized. ABDOMEN and PELVIS: Intraperitoneal space: Unremarkable. No free air. No significant fluid collection. Bones/joints: No acute fracture. No dislocation. Soft tissues: Unremarkable. Vasculature: There is mild atherosclerosis of the aorta and iliac vessels. No aneurysm or dissection. Lymph nodes: Unremarkable. No enlarged lymph nodes. IMPRESSION: 1. Cholecystectomy with stable intrahepatic biliary dilatation. No inflammatory process is noted. 2. Large amounts of stool sparing the right colon which may be minimally thickened or appears so because of collapse. Mild right colitis not completely excluded. No obstruction. Electronically signed by: Yessenia Padilla MD 11/05/2019 7:09 AM CDT
[2019-11-05 07:36] VITALS: TEMP 98.1
[2019-11-05 07:42] VITALS: BP 149/97; O2SAT 95
== END 2019-11-05 07:30 | disposition home or self-care (01) ==
LOC: ER 04:28
DX: R10.11 Right upper quadrant pain (principal); R11.2 Nausea with vomiting, unspecified; F17.200 Nicotine dependence, unspecified, uncomplicated; Z90.49 Acquired absence of other specified parts of digestive tract
CPT/HCPCS: 36415; 74177; 80053; 81001; 83690; 85025; 85610; 85730; J1630; J2270; Q0169

== ENCOUNTER 2020-01-05 21:09 | Emergency (ER) | payer SELFPAY, OTHER ==
--- NOTE | 2020-01-05 21:24 | ED.PDOC ---
History of Present Illness - General Time Seen by Provider: 01/05/20 21:12 - History of Present Illness Initial Comments: 64 yo F with recurrent abdominal pain, n/v, comes in with abdominal pain for the past 11 hours. gradual in onset. Pain does not radiate. no diarrhea, no fever, no black or bloody bm. NO chest pain, shortness of breath. Had choleycystectomy, for this pain, but only had pain relief for two days. Denies headache. Has chronic abdominal pain that comes and goes for many years. Has tramadol and phenergan, but pain continues. no fever. Allergies/Adverse Reactions: Allergies Diphenhydramine [From Benadryl] Allergy (Verified 10/24/19 00:56) NSAIDs Allergy (Verified 10/24/19 00:56) Iodine Adverse Reaction (Verified 10/24/19 00:56) Metoclopramide [From Reglan] Adverse Reaction (Verified 10/24/19 00:56) Ondansetron Adverse Reaction (Verified 10/24/19 00:56) Home Medications: Ambulatory Orders Sumatriptan Succinate [Imitrex] 100 mg PO PRN PRN MDD 2 in 24hr 09/01/18 Bisoprolol Fumarate 5 mg PO BEDTIME 10/18/19 Buspirone HCl [Buspirone Hydrochloride] 10 mg PO BEDTIME 10/18/19 Divalproex Sodium [Depakote ER] 750 mg PO DAILY 10/18/19 Lisinopril 10 mg PO DAILY 10/18/19 Propranolol HCl 40 mg PO DAILY 10/18/19 Trazodone HCl [Trazodone Hydrochloride] 50 mg PO BEDTIME 10/18/19 risperiDONE [Risperdal] 0.25 mg PO BEDTIME 10/18/19 Hydrocodone-Acetaminophen [[place] 5-325 mg] 1 tab PO Q6H PRN #20 tab 10/30/19 Hydrocodone-Acetaminophen [[place] 5-325 mg] 1 - 2 tab PO Q6H PRN #12 tab 11/02/19 Sodium Phos/Biphos Enema Adult [Fleet Enema (Adult)] 1 ml NM .PRN #1 bttl 11/05/19 Alum & Mag Hydrox-Simethicone [Mylanta] 30 ml PO BID PRN #600 ml 01/06/20 Docusate Sodium [Colace Cap] 100 mg PO BID #20 cap 01/06/20 Review of Systems - Review of Systems Constitutional: Denies: fever, malaise, weakness EENTM: Denies: eye pain, blurred vision, ear discharge, nose pain, throat pain Respiratory: Denies: cough, orthopnea, short of breath, stridor Cardiology: Denies: chest pain, edema, palpitations, syncope Gastrointestinal/Abdominal: States: abdominal pain, nausea. Denies: constipation, diarrhea Genitourinary: Denies: discharge, dysuria, frequency, hematuria Musculoskeletal: Denies: back pain, joint pain, joint swelling, muscle pain, muscle stiffness Skin: Denies: change in color, change in hair/nails, dryness Neurological: Denies: headache, numbness, paresthesia, pre-existing deficit, seizure, tingling, tremors, weakness Endocrine: Denies: excessive sweating, increased hunger, increased thirst, increased urine, unexplained weight gain, unexplained weight loss Hematologic/Lymphatic: Denies: anemia, easy bleeding, easy bruising Past Medical History (General) - Patient Medical History Hx Seizures: Yes Hx Stroke: No Hx Dementia: No Hx Asthma: No Hx of COPD: No Hx Cardiac Disorders: No Hx Congestive Heart Failure: No Hx Pacemaker: No Hx Hypertension: Yes Hx Thyroid Disease: No Hx Diabetes: No Hx Gastroesophageal Reflux: Yes - hx gastric ulcers Hx Renal Disease: No Hx Cancer: No Hx of HIV: No Hx Hepatitis C: No Hx MRSA: No - Vaccination History Hx Tetanus, Diphtheria Vaccination: No Hx Influenza Vaccination: No Hx Pneumococcal Vaccination: No - Social History Hx Tobacco Use: Yes Hx Chewing Tobacco Use: No Hx Alcohol Use: No Hx Substance Use: No Hx Substance Use Treatment: No Hx Depression: Yes Hx Physical Abuse: No Hx Emotional Abuse: No Hx Suspected Abuse: No - Female History Patient : No Family Medical History - Family History Son Family History: No Known Hx Family Cancer: Yes - parents(mom-gastric;dad-unknownt type) Mother Living Status: Cause of : cancer Father Family History: Unknown Living Status: Cause of : cancer Physical Exam - Physical Exam General Appearance: Alert, Comfortable, No apparent distress Eye Exam: bilateral normal Ears, Nose, Throat: hearing grossly normal, normal ENT inspection, normal pharynx Neck: non-tender, full range of motion, supple, normal inspection Respiratory: chest non-tender, lungs clear, normal breath sounds, no respiratory distress, no accessory muscle use Cardiovascular/Chest: normal peripheral pulses, regular rate, rhythm, no edema, no gallop, no JVD, no murmur Peripheral Pulses: radial,right: 2+, radial,left: 2+, dorsalis pedis,right: 2+, dorsalis pedis,left: 2+ Gastrointestinal/Abdominal: normal bowel sounds, non tender, soft, no organomegaly, no pulsatile mass Rectal Exam: deferred Back Exam: normal inspection, no CVA tenderness, no vertebral tenderness Extremity: normal range of motion, non-tender, normal inspection, no pedal edema, no calf tenderness 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 Due to this being acute on chronic issue will try to get pain controlled. Will get CT to look for any inflammation or SBO. EKG shows HR 64, NSR. I have reviewed medication, benefits, alternative and side effects. Patient decided to proceed with medication.will give IM morphine and phenergan 01/05/20 22:34 patient resting comfortably. states the morphine helped a little with pain. Will po challenge her. patient given GI cocktail. States the tramadol at home doesn't help with pain. no acute pathology noted on CT abd/pelvis. pending radiology report. The data reviewed when caring for this patient included: nurse notes etc. The history and assessments from nurses notes were reviewed and considered, and the patient's home medication list was also reviewed and considered. My assessment and the results of testing completed here in the ED were discussed with the patient/family. All questions were answered, and they express understanding of my assessment and the plan. They have been instructed to return if their sy mptoms worsen, and have been asked to follow up with their primary care physician to recheck today's presenting complaint. I have reviewed medication, benefits, alternative and side effects. Patient acknowledge understanding.patient discharged in stable condition. Encourage patient to follow up with a GI specialist. Departure - Departure Clinical Impression: Abdominal pain Qualifiers: Abdominal location: upper abdomen, unspecified Qualified Code(s): R10.10 - Upp er abdominal pain, unspecified Time of Disposition: 00:07 Disposition: Discharge to Home or Self Care Condition: Good Instructions: Acute Abdomen (Belly Pain), Adult (DC), Dyspepsia (DC) Diet: bland diet Referrals: Aram Fitzpatrick MD [Primary Care Provider] - 1-2 Days Prescriptions: Docusate Sodium [Colace Cap] 100 mg PO BID #20 cap Alum & Mag Hydrox-Simethicone [Mylanta] 30 ml PO BID PRN #600 ml PRN Reason: Pain Home Medications: Ambulatory Orders Sumatriptan Succinate [Imitrex] 100 mg PO PRN PRN MDD 2 in 24hr 09/01/18 Bisoprolol Fumarate 5 mg PO BEDTIME 10/18/19 Buspirone HCl [Buspirone Hydrochloride] 10 mg PO BEDTIME 10/18/19 Divalproex Sodium [Depakote ER] 750 mg PO DAILY 10/18/19 Lisinopril 10 mg PO DAILY 10/18/19 Propranolol HCl 40 mg PO DAILY 10/18/19 Trazodone HCl [Trazodone Hydrochloride] 50 mg PO BEDTIME 10/18/19 risperiDONE [Risperdal] 0.25 mg PO BEDTIME 10/18/19 Hydrocodone-Acetaminophen [[place] 5-325 mg] 1 tab PO Q6H PRN #20 tab 10/30/19 Hydrocodone-Acetaminophen [[place] 5-325 mg] 1 - 2 tab PO Q6H PRN #12 tab 11/02/19 Sodium Phos/Biphos Enema Adult [Fleet Enema (Adult)] 1 ml NM .PRN #1 bttl 11/05/19 Alum & Mag Hydrox-Simethicone [Mylanta] 30 ml PO BID PRN #600 ml 01/06/20 Docusate Sodium [Colace Cap] 100 mg PO BID #20 cap 01/06/20
[2020-01-05] MEDS ORDERED: MORPHINE SULFATE INJ 10 MG/ML VIAL IM ONE (22:28)
[2020-01-05] MEDS ORDERED: PROMETHAZINE SYP 6.25 MG/5 ML 5 ML UD PO ONE (22:29)
--- NOTE | 2020-01-05 22:33 | RAD ---
EXAM:Chest,2 Views CLINICAL INDICATION: Abdomen pain COMPARISON: 03/10/2019 FINDINGS:Two views of the chest were obtained. The heart size is normal. The pulmonary vascularity is unremarkable. The lungs are clear. There is no consolidation, infiltrate, pleural effusion, or pneumothorax. Old healed rib fractures are noted bilaterally. IMPRESSION: No evidence of active pulmonary disease. Electronically signed by: Quentin Brown MD 01/05/2020 10:31 PM CDT
[2020-01-05] MEDS ORDERED: HYDROmorphone HCL INJ 2 MG/ML VIAL IM ONE (23:31)
[2020-01-05] MEDS ORDERED: ALUM & MAG HYDROX-SIMETHICONE 30 ML, LIDOCAINE VISCOUS 2% 15 ML PO ONE ×2 (23:33)
--- NOTE | 2020-01-05 23:58 | CT ---
EXAM DESCRIPTION: Abdominal pain CLINICAL HISTORY: 64 years Female abdominal pain COMPARISON: 11/05/2019 TECHNIQUE: Multiple contiguous axial CT slices were taken from the diaphragms to the pubic symphysis without intravenous contrast. This exam was performed according to our departmental dose-optimization program, which includes automated exposure control, adjustment of the mA and/or kV according to patient size and/or use of iterative reconstruction technique. FINDINGS: Right basilar linear atelectasis. Visualized cardiomediastinal structures are normal. No focal hepatic lesions. Gallbladder surgically absent. Compensatory enlargement of the common bile duct consistent with postcholecystectomy changes. Pancreas spleen and adrenals are normal. Small nonobstructing right lower pole urinary tract calculus. Benign right upper pole simple renal cyst. No additional urinary tract calculi. The left kidney appears normal. The ureters and bladder are normal. The uterus is normal. No adnexal masses. The small bowel is normal. The appendix is normal. The large bowel is normal. No ascites, pneumatosis or pneumoperitoneum. No lymphadenopathy. Aortoiliac atherosclerosis. No aneurysm. Normal IVC.. There are no abdominal wall hernia defects. No destructive osseous lesions. IMPRESSION: 1. No acute abnormality evident. 2. Stable postcholecystectomy changes. 3. Small nonobstructing right lower pole renal calculus. Electronically signed by: Quentin Rosenberg MD 01/05/2020 11:56 PM CDT
[2020-01-06] MEDS ORDERED: PROMETHAZINE SYP 6.25 MG/5 ML 5 ML UD PO ONE (00:05)
[2020-01-06] MEDS ORDERED: HYDROCOD/APAP 10/325 (ER DISP) # 3 tablets PO ONE (00:09)
[2020-01-06 00:44] VITALS: BP 136/84; TEMP 98.4; O2SAT 99
== END 2020-01-06 00:25 | disposition home or self-care (01) ==
LOC: ER 21:09
DX: R10.10 Upper abdominal pain, unspecified (principal); G89.29 Other chronic pain; R11.2 Nausea with vomiting, unspecified; K21.9 Gastro-esophageal reflux disease without esophagitis; F32.9 Major depressive disorder, single episode, unspecified; I10 Essential (primary) hypertension; R56.9 Unspecified convulsions; Z87.11 Personal history of peptic ulcer disease; Z87.891 Personal history of nicotine dependence; Z79.899 Other long term (current) drug therapy; Z88.8 Allergy status to other drugs, medicaments and biological substances; Z88.6 Allergy status to analgesic agent; Z91.041 Radiographic dye allergy status; Z90.49 Acquired absence of other specified parts of digestive tract
CPT/HCPCS: 71046; 74176; 93005; J1170; J2270

== ENCOUNTER → 2020-06-27 | Outpatient (CLI) | payer BC ==
--- NOTE | 2020-06-30 09:38 | CT ---
Procedure: CT LUNG SCREENING Exam Date: June 27, 2020. Ordering Provider: Aram Fitzpatrick Clinical Indication: hx nicotine dependence current cigarette smoker. 50+ pack years. This patient meets eligibility criteria for low-dose CT lung cancer screening. Comparison: Baseline low-dose lung cancer screening examination. Previous chest CT scan without contrast Technique: Using a multislice scanner, sequential helical axial imaging was obtained in the thorax, 2.5 mm thickness, 2.5 mm separation, from the level of the thoracic inlet through the lung bases without IV contrast. A low dose protocol was utilized for BMI less than 30: BMI: 23. CTDI: 1.74 mGy. 120. kVp. 45 mA. DLP 58 mGy-cm. 2D sagittal and coronal reconstructed images, 6.0 mm thickness, were obtained. This exam was performed according to our departmental dose optimization program which includes use of automated exposure control, adjustment of the mA and/or kV according to patient size and/or use of iterative reconstruction technique. Nodule measurements under 10 mm are given as mean value of 3 axes diameters. FINDINGS: Lungs and large airways: Peripheral and subpleural groundglass opacities in the posterior aspect and base of the right upper lobe, and lateral aspect of the left upper lobe. Smaller groundglass opacities also seen in the inferior lingula and right middle lobe. Previous pleural parenchymal scarring in all lobes, stable in the bilateral lung bases. No groundglass opacities in the bilateral lung bases. 4.2 mm solid nodule medial inferior right upper lobe anterior to the superior right major fissure on axial series 2, image 31. No abnormal nodules and no masses. Pleura and space: Minimal thickening. No calcification. No acute process. Mediastinum and qamar: evaluation limited by low dose technique and lack of IV contrast. Small lymph nodes. No dominant soft tissue mass. Heart and great vessels: Atherosclerotic calcifications of the brachiocephalic vessels and aorta. Minimal calcifications in the coronary arteries. Chest wall, lower neck, axillae: Evaluation also limited by same factors as described above. Subclavian and axillary nodes are nonenlarged. No dominant soft tissue mass. Upper abdomen: Evaluation limited by low-dose technique. No free fluid or free air. Surgical clips gallbladder fossa. Stomach is distended. Surgical clips at the gastroesophageal junction. Osseous structures: Evaluation limited by low dose MIP technique. No significant bony abnormalities. Spondylosis midthoracic spine. IMPRESSION: 1. Bilateral subpleural groundglass opacities mostly right upper lobe more than left upper lobe. Not seen on the prior study. 4.2 mm solid nodule right upper lobe. Not seen on the prior study. Bilateral scarring is stable... [facility] Best Practice Recommendations: please see below for Lung RADS category and FOLLOW-UP.* *Lung RADS category CATEGORY 3 - Probably benign (1-2% malignancy probability), short term follow-up suggested. NODULES: Solid nodule(s) 6mm (113.1 mm3) to less than 8mm (268.1 mm3) at baseline, or new 4mm (33.5 mm3) to under 6mm (113.1 mm3) solid nodule. Part solid nodule total diameter >= 6mm (113.1 mm3) with solid component less than 6mm, or new less than 6mm total diameter nodule] OR new <6 mm (113.1 mm3) total diameter. GGN >= 30 mm (>=98338 mm3) on baseline CT or new. FOLLOW-UP: Please return for a Low Dose Chest CT in 6 months for re-evaluation. 2. Lung RADS Modifier S - Clinically Significant or Potentially Clinically Significant Findings (non lung cancer). Commonly reported imaging features of viral pneumonia are present. Correlate with COVID status. Other processes such as influenza pneumonia and organizing pneumonia, as can be seen with drug toxicity and connective tissue disease, can cause a similar imaging pattern. Reference: https://pubs.[facility].org/doi/full/10.1148/ryct.[email or web address] Electronically signed by: Roderick Biggs MD 06/30/2020 9:36 AM [facility]
== END ==
LOC: CT 15:30
PROVIDERS: ATTEND Family Medicine
DX: R91.8 Other nonspecific abnormal finding of lung field (principal); Z12.2 Encounter for screening for malignant neoplasm of respiratory organs; Z87.891 Personal history of nicotine dependence

== ENCOUNTER 2020-07-03 11:41 | Inpatient (IN) | payer BC ==
[2020-07-03] MEDS ORDERED: ALUM & MAG HYDROX-SIMETHICONE 30 ML, LIDOCAINE VISCOUS 2% 15 ML PO ONE ×2 (12:16)
[2020-07-03] MEDS ORDERED: PANTOPRAZOLE SODIUM IV 40 MG VIAL IV ONE (12:16)
[2020-07-03] MEDS ORDERED: DEXAMETHASONE INJ 10 MG/ML VIAL IV ONE (12:35)
--- NOTE | 2020-07-03 12:39 | RAD ---
EXAM DESCRIPTION: Abdomen Flat Upright CLINICAL HISTORY: 65 years Female, diarrhea COMPARISON: None. FINDINGS: Chest x-ray shows large heart with increased vascularity. Patchy bilateral pulmonary infiltrates consistent with pneumonia. No pneumothorax. No large pleural effusion. Prosthetic right humerus. Upright x-ray abdomen shows no abnormal air-fluid level or free air under the diaphragm. Gallbladder clips in right upper quadrant. Supine x-ray abdomen view shows normal bowel gas pattern. Calcifications in the left pelvis may be phleboliths. Intact bony pelvis and hips. Degenerative changes in lower lumbar spine with mild leftward curvature. IMPRESSION: Nonobstructive bowel gas pattern. Bilateral pulmonary infiltrates consistent with pneumonia. Electronically signed by: Sam Rodriguez MD 07/03/2020 12:38 PM CREMATORIUM OPERATOR
[2020-07-03] MEDS ORDERED: AZITHROMYCIN IV 500 MG in SODIUM CHLORIDE 0.9% 250ML 250 ML IVPB ONE (13:30)
[2020-07-03] MEDS ORDERED: REMDESIVIR 200 MG in SODIUM CHLORIDE 0.9% 250ML 250 ML IVPB ONE (13:30)
[2020-07-03] MEDS ORDERED: cefTRIAXone SODIUM 1 GM in SODIUM CHL 0.9% 50ML MIN-BAG+ 50 ML IVPB ONE (13:30)
--- NOTE | 2020-07-03 13:56 | RAD ---
EXAM DESCRIPTION: Abdomen Flat Upright CLINICAL HISTORY: 65 years Female, diarrhea COMPARISON: None. FINDINGS: Chest x-ray shows large heart with increased vascularity. Patchy bilateral pulmonary infiltrates consistent with pneumonia. No pneumothorax. No large pleural effusion. Prosthetic right humerus. Upright x-ray abdomen shows no abnormal air-fluid level or free air under the diaphragm. Gallbladder clips in right upper quadrant. Supine x-ray abdomen view shows normal bowel gas pattern. Calcifications in the left pelvis may be phleboliths. Intact bony pelvis and hips. Degenerative changes in lower lumbar spine with mild leftward curvature. IMPRESSION: Nonobstructive bowel gas pattern. Bilateral pulmonary infiltrates consistent with pneumonia. Electronically signed by: Sam Rodriguez MD 07/03/2020 12:38 PM SPECIALTY SALES CONSULTANT
--- NOTE | 2020-07-03 14:40 | ED.PDOC ---
History of Present Illness - General Chief Complaint: GI Problem Stated Complaint: N/V/DX 3 weeks, upper left abd pain, headache Time Seen by Provider: 07/03/20 12:04 Source: patient Exam Limitations: no limitations - History of Present Illness Initial Comments: The patient is a 65-year-old female presented emergency room secondary to headache, shortness of breath with mild cough and diarrhea for the last 5 to 7 days. She denies any definite fever because she has not been taking it. She denies normal oxygen requirement. She does smoke extensively. She did have a CT a few days ago showed groundglass infiltrates. She has not been on any antibiotics or steroids according to her. No blood in the diarrhea. She does feel like she is mildly dehydrated. Timing/Duration: 1 week Severity: moderate Improving Factors: nothing Worsening Factors: nothing Associated Symptoms: headaches, malaise, nausea/vomiting, shortness of breath Allergies/Adverse Reactions: Allergies Diphenhydramine [From Benadryl] Allergy (Verified 07/03/20 12:42) NSAIDs Allergy (Verified 07/03/20 12:42) Iodine Adverse Reaction (Verified 07/03/20 12:42) Metoclopramide [From Reglan] Adverse Reaction (Verified 07/03/20 12:42) Ondansetron Adverse Reaction (Verified 07/03/20 12:42) Home Medications: Ambulatory Orders Sumatriptan Succinate [Imitrex] 100 mg PO PRN PRN MDD 2 in 24hr 09/01/18 Bisoprolol Fumarate 5 mg PO BEDTIME 10/18/19 Buspirone HCl [Buspirone Hydrochloride] 10 mg PO BEDTIME 10/18/19 Divalproex Sodium [Depakote ER] 750 mg PO DAILY 10/18/19 Lisinopril 10 mg PO DAILY 10/18/19 Propranolol HCl 40 mg PO DAILY 10/18/19 Trazodone HCl [Trazodone Hydrochloride] 50 mg PO BEDTIME 10/18/19 risperiDONE [Risperdal] 0.25 mg PO BEDTIME 10/18/19 Hydrocodone-Acetaminophen [[place] 5-325 mg] 1 tab PO Q6H PRN #20 tab 10/30/19 Hydrocodone-Acetaminophen [[place] 5-325 mg] 1 - 2 tab PO Q6H PRN #12 tab 11/02/19 Sodium Phos/Biphos Enema Adult [Fleet Enema (Adult)] 1 ml MI .PRN #1 bttl 11/05/19 Alum & Mag Hydrox-Simethicone [Mylanta] 30 ml PO BID PRN #600 ml 01/06/20 Docusate Sodium [Colace Cap] 100 mg PO BID #20 cap 01/06/20 Pantoprazole Sodium 40 mg PO DAILY #30 tab 01/09/20 Review of Systems - Review of Systems Constitutional: States: malaise EENTM: States: nose congestion Respiratory: States: cough, short of breath Cardiology: States: no symptoms reported Gastrointestinal/Abdominal: States: diarrhea, nausea Genitourinary: States: no symptoms reported Musculoskeletal: States: no symptoms reported Skin: States: no symptoms reported Neurological: States: headache Endocrine: States: no symptoms reported All other Systems: No Change from Baseline Past Medical History (General) - Patient Medical History Hx Seizures: Yes Hx Stroke: No Hx Dementia: No Hx Asthma: No Hx of COPD: No Hx Cardiac Disorders: No Hx Congestive Heart Failure: No Hx Pacemaker: No Hx Hypertension: Yes Hx Thyroid Disease: No Hx Diabetes: No Hx Gastroesophageal Reflux: Yes - hx gastric ulcers Hx Renal Disease: No Hx Cancer: No Hx of HIV: No Hx Hepatitis C: No Hx MRSA: No Surgical History: cholecystectomy - Vaccination History Hx Tetanus, Diphtheria Vaccination: No Hx Influenza Vaccination: No Hx Pneumococcal Vaccination: No - Social History Hx Tobacco Use: Yes Hx Chewing Tobacco Use: No Hx Alcohol Use: No Hx Substance Use: No Hx Substance Use Treatment: No Hx Depression: Yes Hx Physical Abuse: No Hx Emotional Abuse: No Hx Suspected Abuse: No - Female History Patient is a Female of Child Bearing Age (10 -59 yrs old): No Patient : No Family Medical History - Family History Son Family History: No Known Hx Family Cancer: Yes - parents(mom-gastric;dad-unknownt type) Mother Living Status: Cause of : cancer Father Family History: Unknown Living Status: Cause of : cancer Physical Exam - Physical Exam General Appearance: Alert, Comfortable, No apparent distress Eye Exam: bilateral normal Ears, Nose, Throat: hearing grossly normal, normal pharynx, nasal congestion Neck: full range of motion, supple Respiratory: no respiratory distress, no accessory muscle use, rales, rhonchi Cardiovascular/Chest: normal peripheral pulses, regular rate, rhythm, no edema Peripheral Pulses: radial,right: 2+, radial,left: 2+ Gastrointestinal/Abdominal: soft, other - Diffuse discomfort to palpation but no palpable mass and no rebound or peritoneal signs. 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 The patient is hypoxic but correcting well with 2 L on nasal cannula. She is being started on Rocephin, azithromycin, remdesivir, dexamethasone and Lovenox. The patient may require small IV fluid boluses due to the diarrhea she has had the last week. We will defer on that for now however. Continue oxygen supplementation. She may benefit from breathing treatments given her COPD history. Admitting for continued care. ruth wolfe [phone] - Results/Orders Results/Orders: Chest x-ray shows scattered infiltrates consistent with Covid pneumonia. EKG shows normal sinus rhythm at 68 bpm. Questionable U wave. borderline right axis deviation. No acute ST segment or T wave changes indicative of acute ischemia. Normal QT interval. A Laboratory Tests 07/03/20 07/03/20 07/03/20 12:38 12:38 12:38 WBC 3.2 L RBC 4.14 L Hgb 13.0 Hct 40.0 MCV 96.5 MCH 31.4 H MCHC 32.5 L RDW 14.8 H Plt Count 194 MPV 7.3 L Absolute Neuts (auto) Not Reportable Absolute Lymphs (auto) Not Reportable Absolute Monos (auto) Not Reportable Absolute Eos (auto) Not Reportable Neutrophils % Not Reportable Neutrophils % (Manual) 73.0 Lymphocytes % Not Reportable Lymphocytes % (Manual) 13.0 Monocytes % Not Reportable Monocytes % (Manual) 9.0 Eosinophils % Not Reportable Basophils % Not Reportable Band Neutrophils 3.0 H Metamyelocytes 1.0 H Nucleated RBCs 4.0 Platelet Estimate Normal Polychromasia 1+ Anisocytosis 1+ PT INR PTT (SP) Fibrinogen D-Dimer, Quantitative Sodium 140 Potassium 4.1 Chloride 107 Carbon Dioxide 21 Anion Gap 16.1 BUN 16 Creatinine 0.91 BUN/Creatinine Ratio 17.6 Random Glucose 77 Serum Osmolality 279.4 Lactic Acid 0.8 Calcium 8.0 L Magnesium Ferritin Total Bilirubin 0.6 AST 40 ALT 18 Alkaline Phosphatase 101 LD Total Creatine Kinase 42 CK-MB (CK-2) 1.9 CK-MB (CK-2) % Not Reportable Troponin I < 0.02 C-Reactive Protein B-Natriuretic Peptide 334.0 H* Serum Total Protein 7.0 Albumin 2.8 L Globulin 4.2 H Albumin/Globulin Ratio 0.7 L Amylase 161 H Lipase TSH Urine Color Urine Appearance Urine pH Ur Specific [place] Urine Protein Urine Glucose (UA) Urine Ketones Urine Blood Urine Nitrite Urine Bilirubin Urine Urobilinogen Ur Leukocyte Esterase Urine RBC Urine WBC Ur Epithelial Cells Urine Bacteria Urine Mucus 07/03/20 07/03/20 07/03/20 12:38 12:38 12:38 WBC RBC Hgb Hct MCV MCH MCHC RDW Plt Count MPV Absolute Neuts (auto) Absolute Lymphs (auto) Absolute Monos (auto) Absolute Eos (auto) Neutrophils % Neutrophils % (Manual) Lymphocytes % Lymphocytes % (Manual) Monocytes % Monocytes % (Manual) Eosinophils % Basophils % Band Neutrophils Metamyelocytes Nucleated RBCs Platelet Estimate Polychromasia Anisocytosis PT 17.0 H INR 1.72 H PTT (SP) 41.0 H Fibrinogen 409 H D-Dimer, Quantitative 2160.0 H* Sodium Potassium Chloride Carbon Dioxide Anion Gap BUN Creatinine BUN/Creatinine Ratio Random Glucose Serum Osmolality Lactic Acid Calcium Magnesium 1.8 Ferritin 29.2 Total Bilirubin AST ALT Alkaline Phosphatase LD Total 360 H Creatine Kinase CK-MB (CK-2) CK-MB (CK-2) % Troponin I C-Reactive Protein 9.6 H* B-Natriuretic Peptide Serum Total Protein Albumin Globulin Albumin/Globulin Ratio Amylase Lipase 27 TSH 1.31 Urine Color Urine Appearance Urine pH Ur Specific [place] Urine Protein Urine Glucose (UA) Urine Ketones Urine Blood Urine Nitrite Urine Bilirubin Urine Urobilinogen Ur Leukocyte Esterase Urine RBC Urine WBC Ur Epithelial Cells Urine Bacteria Urine Mucus 07/03/20 14:10 WBC RBC Hgb Hct MCV MCH MCHC RDW Plt Count MPV Absolute Neuts (auto) Absolute Lymphs (auto) Absolute Monos (auto) Absolute Eos (auto) Neutrophils % Neutrophils % (Manual) Lymphocytes % Lymphocytes % (Manual) Monocytes % Monocytes % (Manual) Eosinophils % Basophils % Band Neutrophils Metamyelocytes Nucleated RBCs Platelet Estimate Polychromasia Anisocytosis PT INR PTT (SP) Fibrinogen D-Dimer, Quantitative Sodium Potassium Chloride Carbon Dioxide Anion Gap BUN Creatinine BUN/Creatinine Ratio Random Glucose Serum Osmolality Lactic Acid Calcium Magnesium Ferritin Total Bilirubin AST ALT Alkaline Phosphatase LD Total Creatine Kinase CK-MB (CK-2) CK-MB (CK-2) % Troponin I C-Reactive Protein B-Natriuretic Peptide Serum Total Protein Albumin Globulin Albumin/Globulin Ratio Amylase Lipase TSH Urine Color Yellow Urine Appearance Clear Urine pH 6.5 Ur Specific [place] 1.025 Urine Protein 30 Urine Glucose (UA) Negative Urine Ketones >=160 Urine Blood Negative Urine Nitrite Negative Urine Bilirubin Small H Urine Urobilinogen 0.2 Ur Leukocyte Esterase Negative Urine RBC 3-5 H Urine WBC 1-3 Ur Epithelial Cells 1-3 Urine Bacteria Rare Urine Mucus Trace - EKG/XRAY/CT CT Ordered: No CT Interpretation Call Back: No Departure - Departure Clinical Impression: Pneumonia due to COVID-19 virus, Diarrhea due to COVID-19, Mild dehydration Disposition: Admit Patient Departure Forms: ED Discharge - Pt. Copy, Patient Portal Self Enrollment Referrals: Aram Fitzpatrick MD [Primary Care Provider] - 1-2 Weeks Home Medications: Ambulatory Orders Sumatriptan Succinate [Imitrex] 100 mg PO PRN PRN MDD 2 in 24hr 09/01/18 Bisoprolol Fumarate 5 mg PO BEDTIME 10/18/19 Buspirone HCl [Buspirone Hydrochloride] 10 mg PO BEDTIME 10/18/19 Divalproex Sodium [Depakote ER] 750 mg PO DAILY 10/18/19 Lisinopril 10 mg PO DAILY 10/18/19 Propranolol HCl 40 mg PO DAILY 10/18/19 Trazodone HCl [Trazodone Hydrochloride] 50 mg PO BEDTIME 10/18/19 risperiDONE [Risperdal] 0.25 mg PO BEDTIME 10/18/19 Hydrocodone-Acetaminophen [[place] 5-325 mg] 1 tab PO Q6H PRN #20 tab 10/30/19 Hydrocodone-Acetaminophen [[place] 5-325 mg] 1 - 2 tab PO Q6H PRN #12 tab 11/02/19 Sodium Phos/Biphos Enema Adult [Fleet Enema (Adult)] 1 ml MI .PRN #1 bttl 11/05/19 Alum & Mag Hydrox-Simethicone [Mylanta] 30 ml PO BID PRN #600 ml 01/06/20 Docusate Sodium [Colace Cap] 100 mg PO BID #20 cap 01/06/20 Pantoprazole Sodium 40 mg PO DAILY #30 tab 01/09/20 Decision To Admit - Decistion To Admit Decision to Admit Reason: Medical Nature Decision to Admit Date: 07/03/20 Decision to Admit Time: 14:42
[2020-07-03] MEDS ORDERED: ENOXAPARIN SODIUM 60 MG/0.6 ML SYG SUBCU ONE (15:30)
--- NOTE | 2020-07-03 16:14 | HP ---
SUPERVISING PHYSICIAN: Isra Garcia M.D. CHIEF COMPLAINT: Nausea and vomiting. HISTORY OF PRESENT ILLNESS: Ms. Murphy is a 65 year-old female patient that presented to the Emergency Room today complaining of a headache, some shortness of breath with a mild cough and some associated diarrhea for the last 5 to 7 days. She is not sure if she has been running a fever. She does not normally require any oxygen, but she does smoke heavily. She actually had a CT done by Dr. Fitzpatrick several days ago that showed some ground glass infiltrates but was not tested for COVID at that time. She has not been on any antibiotics or steroids. She denied any actual blood in her stools. COVID swab showed she was positive. Her swab for Influenza A and B by PCR was negative. Blood cultures were completed and she was started on treatment for COVID pneumonitis with remdesivir, Rocephin, azithromycin and Decadron. Her labs showed she had a low white count of 3,200 with a slight left shift and 3% bands. Her coagulation studies showed her D-dimer was elevated at 2160 with a PT of 17 and PTT of 41.0 with fibrinogen of 409. Chemistries are fairly unremarkable with normal electrolytes, creatinine was at 0.91. BNP was a little elevated at 334, C reactive protein was 9.6. Lipase was within normal limits at 27, amylase was a little elevated at 161. TSH was normal at 1.31. Urinalysis showed a small amount of bilirubin with 3 to 5 RBCs, otherwise within normal limits. Abdominal x-ray was also completed and showed nonobstructive bowel gas pattern with chest x-ray showing some bilateral pulmonary infiltrates consistent with pneumonia. Vital signs showed her initial O2 saturations in the Emergency Room, she was hypoxic with O2 saturation initially in the mid 80s, but she corrected with 2 liters nasal cannula and was maintaining 94%. Her 12-lead EKG showed sinus rhythm but no ST or T wave changes to indicate acute ischemia. She is now going to be admitted for further treatment of pneumonia due to COVID-19 virus with associated diarrhea and some mid dehydration. She was admitted in stable condition. PAST MEDICAL HISTORY: 1. Hypertension. 2. Chronic migraines. 3. Prescription medication abuse. 4. Anxiety. 5. Gastroesophageal reflux disease. PAST SURGICAL HISTORY: 1. Cholecystectomy in October 2019. No other surgeries listed. MEDICATIONS: Awaiting an updated list of current medications. ALLERGIES: BENADRYL, NSAIDs, IODINE, REGLAN, ZOFRAN. FAMILY HISTORY: Noncontributory and essentially unknown. SOCIAL HISTORY: The patient lives in [place]. She is . She is a patient at [facility]. She has a history of chronic tobacco abuse, but denies any illicit drugs or alcohol. REVIEW OF SYSTEMS: CONSTITUTIONAL: Positive for general malaise, fevers, chills, but no unintentional weight loss. HEENT: Denies headaches, sore throats, earaches, nasal congestion. RESPIRATORY: Positive for mild shortness of breath with cough. CARDIOVASCULAR: Denies chest pain, palpitations or syncopal episodes. GASTROINTESTINAL: As noted in history of present illness with associated and nausea and vomiting. GENITOURINARY: Denies dysuria, hematuria, polyuria. MUSCULOSKELETAL: Denies arthralgias or myalgias. SKIN: Denies lesions, rashes, moles or unexplained changes. NEUROLOGIC: She does have history of headaches, has not had any recently. She denies any ataxia, seizures, dizziness, syncopal episodes or other focal deficits. HEMATOLOGIC: Denies unexplained bleeding, bruising or transfusion reactions. PHYSICAL EXAMINATION: VITAL SIGNS: Temperature 101.5, pulse 60, blood pressure 142/76, respirations 24. She was initially hypoxic on room air and improving to 95% on 4 liters nasal cannula. GENERAL: The patient is comfortable, in no acute distress, she is alert. HEENT: Tympanic membranes clear bilaterally. Oropharynx is pink, moist without any lesions. NECK: Supple, nontender with full range of motion. No jugular venous distention noted. RESPIRATORY: No obvious rhonchi, wheezes or rales. Lungs are fairly clear, just diminished towards the bases. CARDIOVASCULAR: Regular rate and rhythm without any appreciable murmurs, gallops, or rubs. ABDOMEN: Soft and tender to palpation diffusely, but no palpable masses, rebound tenderness, peritoneal signs or point tenderness. Bowel sounds active. RECTAL: Deferred. BACK: No CVA or vertebral tenderness. EXTREMITIES: There is no cyanosis, clubbing or edema. NEUROLOGIC: Cranial nerves II-XII are grossly intact. The patient is alert and oriented times three. SKIN: Warm, pink and dry. LABORATORY: White count 3,200, hemoglobin 13, hematocrit 40.0, platelet count 194,000. Differential does show a left shift with some bands at 3. Coagulation studies showed D-dimer 2160, PT 17, PTT 41, fibrinogen 409. Chemistries show normal electrolytes. Creatinine 0.91, calcium 8, lactic acid normal at 0.8, magnesium normal at 1.8, ferritin normal at 29.2. Liver functions all within normal limits. LDH elevated at 360. CK normal. C-reactive protein 9.6. Troponin less than 0.02. BNP elevated at 334. Lipase normal at 27. Amylase elevated at 161. TSH 1.31. Urinalysis showed small amount of bilirubin, 3 to 5 RBCs on microscopic, otherwise within normal limits. MICROBIOLOGY: Influenza A and B by PCR was negative. Nasal swab for COVID was positive. Blood cultures pending. RADIOLOGY: Chest x-ray per radiologic interpretation showed bilateral pulmonary infiltrates consistent with pneumonia. Her abdominal x-ray showed nonobstructive bowel gas pattern. 12-lead EKG shows sinus rhythm with no ST or T wave changes concerning for acute ischemia. ASSESSMENT: 1. COVID pneumonitis with associated pneumonia. 2. Diarrhea secondary to COVID-19. 3. Mild dehydration secondary to #2. 4. History of chronic migraines on multiple medications. 5. Poorly controlled hypertension. 6. History of prescription medication abuse. 7. Gastroesophageal reflux disease. 8. Anxiety. 9. Nicotine addiction. PLAN: The patient is going to be admitted for continuation of treatment of COVID pneumonitis with associated pneumonia. She has had some nausea. Given the fact that she is allergic to the more common antiemetics including Zofran, we will give her some Phenergan. She does not look to be significantly dehydrated. I think she could probably drink some oral fluids and we will hold off on any IV fluids given that she has a diagnosis of COVID. She will be on treatment with empiric coverage on antibiotics including Rocephin, azithromycin. She will also be started on remdesivir, Decadron, Protonix, Align, Mucinex. She will have oxygen to titrate her O2 saturations between 92% and 94% and to room air. Given that she does have a significantly elevated D-dimer with no significant history of trauma and underlying diagnosis of COVID, we will treat her pretty aggressively with Lovenox 1 mg per kg q.12h. We will follow her labs and x-rays per protocol. I will start her on a clear liquid diet and as she tolerates that, we will certainly advance her diet. If she continues to have significant abdominal pain, we will look at getting a CT of her abdomen and modify plan of care from that point. I anticipate her length of stay to be at least 2 to 3 days. Until the patient can transition to outpatient management, we will continue to monitor and treat as needed. #[id number] [facility]TD[facility]
[2020-07-03] MEDS ORDERED: PROMETHAZINE HCL INJ 25 MG in SODIUM CHLORIDE 0.9% 50ML 50 ML IVPB ONE (18:26)
[2020-07-03] MEDS ORDERED: ALBUTEROL INHALER 64 PUFF/8GM INH PRN (18:28)
[2020-07-03] MEDS ORDERED: SODIUM CHLORIDE 0.9% (FLUSH) 10 ML SYG IV PRN (18:33)
[2020-07-03] MEDS ORDERED: IV SET AND CAP CHANGE INJ INJ SCH (19:00)
[2020-07-03] MEDS ORDERED: PROMETHAZINE HCL INJ 25 MG/ML VIAL ONE (19:02)
[2020-07-03] MEDS ORDERED: SODIUM CHLORIDE 0.9% 50ML 50 ML ONE (19:02)
[2020-07-03] MEDS ORDERED: SODIUM CHLORIDE 0.9% 250ML 250 ML ONE (19:37)
[2020-07-03] MEDS ORDERED: REMDESIVIR IV 100 MG VIAL ONE ×3 (19:37→19:42)
[2020-07-03] MEDS: NICOTINE PATCH 14 MG TD SCH (19:38)
[2020-07-03] MEDS: BIFIDOBACTERIUM INFANTIS 4 MG CAP PO SCH (19:38)
[2020-07-03] MEDS: ACETAMINOPHEN 325 MG TAB PO PRN (19:40)
[2020-07-03] MEDS: ALBUTEROL INHALER 64 PUFF/8GM INH SCH (20:30)
[2020-07-03] MEDS ORDERED: SUMAtriptan SUCCINATE INJ 6 MG/0.5 ML VIAL SUBCU ONE (21:36)
[2020-07-04] MEDS: ACETAMINOPHEN 325 MG TAB PO PRN ×3 (02:18→17:49)
[2020-07-04] MEDS: PANTOPRAZOLE SODIUM IV 40 MG VIAL IV SCH (05:55)
--- NOTE | 2020-07-04 05:57 | RAD ---
PROCEDURE:XR CHEST 1 VIEW HISTORY:COVID PNA COMPARISON: January 05, 2020 FINDINGS: The heart appears unremarkable. There are diffuse coarse interstitial markings seen in both the left and right lungs with a small left-sided effusion. Incidental note is made of a hiatal hernia. Postsurgical changes are seen to the right shoulder. There are no acute bony abnormalities. IMPRESSION: Diffuse coarse interstitial markings bilaterally with a small left-sided effusion. Concerning for developing atypical pneumonia Electronically signed by: Lance Diaz MD 07/04/2020 5:56 AM CAB SUPERVISOR
[2020-07-04] MEDS: ALBUTEROL INHALER 64 PUFF/8GM INH SCH ×4 (07:40→20:33)
[2020-07-04] MEDS: cefTRIAXone SODIUM 1 GM in SODIUM CHL 0.9% 50ML MIN-BAG+ 50 ML IVPB SCH (09:03)
[2020-07-04] MEDS: NICOTINE PATCH 14 MG TD SCH (09:03)
[2020-07-04] MEDS: BIFIDOBACTERIUM INFANTIS 4 MG CAP PO SCH (09:04)
[2020-07-04] MEDS: ENOXAPARIN SODIUM 60 MG/0.6 ML SYG SUBCU SCH ×2 (09:04→20:30)
[2020-07-04] MEDS: PROMETHAZINE HCL INJ 12.5 MG in SODIUM CHLORIDE 0.9% 50ML 50 ML IVPB PRN ×2 (09:05→17:15)
[2020-07-04] MEDS: AZITHROMYCIN IV 500 MG in SODIUM CHLORIDE 0.9% 250ML 250 ML IVPB SCH (10:05)
[2020-07-04] MEDS ORDERED: ACETAMINOPHEN IV 1000MG 1,000 MG in PREMIX BOTTLE 1 BOTTLE IVPB ONE (11:48)
[2020-07-04] MEDS ORDERED: ACETAMINOPHEN IV 1000MG 100 ML ONE (11:58)
--- NOTE | 2020-07-04 13:23 | PN ---
SUPERVISING PHYSICIAN: Isra Garcia MD DATE: 07/04/20 SUBJECTIVE: The patient had the start of a migraine last night, which was treated with Imitrex and seems to be working. She is not having as much shortness of breath. She is maintaining her O2 saturations okay on 2 liters nasal cannula. She is starting to try to tolerate a diet, but still having some nausea and requiring Phenergan. OBJECTIVE: VITAL SIGNS: Temperature 97.7, pulse 47, blood pressure 128/78, respirations 18, saturation 93% on 4 liters nasal cannula. GENERAL: The patient is resting comfortably in no acute distress. CHEST: Lungs are clear to auscultation bilaterally, just slightly diminished towards the bases. HEART: Regular rate and rhythm. ABDOMEN: Soft, nontender today. Positive bowel sounds. EXTREMITIES: No edema. NEUROLOGIC: Alert and oriented times three. LABORATORY: White count 1,800 without a left shift. D-dimer today is down to 938. On admission it was 2160. Chemistry shows normal electrolytes. Creatinine 0.75. Glucose 117, calcium 7.9 corrected to 8.2 for albumin of 2.4. Magnesium normal at 1.9. Liver functions within normal limits. C-reactive protein is down to 7.8. MICROBIOLOGY: Blood cultures are negative as of current date. RADIOLOGY: Chest x-ray per radiologic interpretation shows diffuse coarse interstitial markings bilaterally with small left sided effusion concerning for developing atypical pneumonia. ASSESSMENT: 1. COVID pneumonitis with associated pneumonia. 2. Diarrhea secondary to COVID-19. 3. Mild dehydration secondary to #2. 4. History of chronic migraines on multiple medications. 5. Poorly controlled hypertension. 6. History of prescription medication abuse. 7. Gastroesophageal reflux disease. 8. Anxiety. 9. Nicotine addiction. PLAN: We will continue with current plan of care with remdesivir and empiric antibiotic coverage. She is on Lovenox 1 mg per kg. She continues to be on promethazine for any nausea. We will continue to titrate her oxygen as she tolerates to room air. As she is able to advance her diet, we will certainly advance to full liquid. I anticipate hopefully being able to discharge her in the next 24 to 48 hours. Until then, we will continue to monitor and treat as needed. #[id number] [facility]
[2020-07-04] MEDS: REMDESIVIR 100 MG in SODIUM CHLORIDE 0.9% 250ML 250 ML IVPB SCH (13:56)
[2020-07-04] MEDS ORDERED: guaiFENesin ER TAB 600 MG TAB ONE (18:56)
[2020-07-04] MEDS ORDERED: traZODone HCL 50 MG TAB ONE (19:01)
[2020-07-04] MEDS ORDERED: LISINOPRIL 10 MG TAB ONE (19:02)
[2020-07-04] MEDS ORDERED: SUCRALFATE 1 GM/10 ML 1 GM UD ONE (19:02)
[2020-07-04] MEDS ORDERED: traZODone HCL 100 MG TAB PO ONE (19:02)
[2020-07-04] MEDS ORDERED: ACETAMINOPHEN W/COD #3 TAB 1 EA TAB ONE (19:12)
[2020-07-04] MEDS ORDERED: DIVALPROEX SODIUM ER 250 MG TAB PO ONE (19:13)
[2020-07-04] MEDS: DIVALPROEX SODIUM ER 250 MG TAB PO SCH (19:14)
[2020-07-04] MEDS: NON-FORMULARY MEDICATION 1 EA MIS (Bisoprolol Fumarate [Bisoprolol Fumarate] 5 MG) PO SCH (19:17)
[2020-07-04] MEDS: NON-FORMULARY MEDICATION 1 EA MIS (Lisinopril [Lisinopril] 10 MG) PO SCH (19:18)
[2020-07-04] MEDS: DOCUSATE SODIUM 100 MG CAP PO SCH (19:18)
[2020-07-04] MEDS: traZODone HCL 50 MG TAB PO SCH (19:18)
[2020-07-04] MEDS: HYOSCYAMINE SULFATE PO SCH (19:18)
[2020-07-04] MEDS: SUCRALFATE 1 GM/10 ML 1 GM UD PO SCH (19:18)
[2020-07-04] MEDS: guaiFENesin ER TAB 600 MG TAB PO SCH (19:19)
[2020-07-04] MEDS: ACETAMINOPHEN W/COD #3 TAB (ER Disp) PO PRN (19:19)
[2020-07-04] MEDS ORDERED: ALPRAZolam 0.5 MG TAB PO ONE (21:31)
[2020-07-04] MEDS ORDERED: ALPRAZolam 0.5 MG TAB ONE (21:32)
[2020-07-05] MEDS ORDERED: ACETAMINOPHEN W/COD #3 TAB 1 EA TAB ONE (04:49)
[2020-07-05] MEDS: PROMETHAZINE HCL INJ 12.5 MG in SODIUM CHLORIDE 0.9% 50ML 50 ML IVPB PRN (04:55)
[2020-07-05] MEDS: ACETAMINOPHEN W/COD #3 TAB (ER Disp) PO PRN (04:55)
[2020-07-05] MEDS ORDERED: SUCRALFATE 1 GM/10 ML 1 GM UD ONE ×2 (05:13→11:28)
[2020-07-05] MEDS: PANTOPRAZOLE SODIUM IV 40 MG VIAL IV SCH (06:06)
[2020-07-05] MEDS: SUCRALFATE 1 GM/10 ML 1 GM UD PO SCH ×2 (06:07→11:30)
[2020-07-05] MEDS ORDERED: DOCUSATE SODIUM 100 MG CAP ONE (07:28)
[2020-07-05] MEDS ORDERED: LISINOPRIL 10 MG TAB ONE (07:29)
[2020-07-05] MEDS ORDERED: DEXAMETHASONE INJ 10 MG/ML VIAL ONE (07:29)
[2020-07-05] MEDS ORDERED: traZODone HCL 50 MG TAB ONE (07:29)
[2020-07-05] MEDS: ALBUTEROL INHALER 64 PUFF/8GM INH SCH ×2 (08:10→12:40)
--- NOTE | 2020-07-05 08:26 | RAD ---
PROCEDURE:XR CHEST 1 VIEW HISTORY:COVID PNA COMPARISON: July 04, 2020 FINDINGS: The heart is stable in appearance.. The pulmonary infiltrates appear stable from the prior examination. There are no new infiltrates. The effusions appear unchanged. There is no evidence for pneumothorax. There are no acute bony or soft tissue abnormalities. IMPRESSION: Stable chest x-ray. Electronically signed by: Lance Diaz MD 07/05/2020 8:24 AM [facility]
[2020-07-05] MEDS: cefTRIAXone SODIUM 1 GM in SODIUM CHL 0.9% 50ML MIN-BAG+ 50 ML IVPB SCH (08:53)
[2020-07-05] MEDS: DOCUSATE SODIUM 100 MG CAP PO SCH (08:54)
[2020-07-05] MEDS: AZITHROMYCIN IV 500 MG in SODIUM CHLORIDE 0.9% 250ML 250 ML IVPB SCH (08:54)
[2020-07-05] MEDS: guaiFENesin ER TAB 600 MG TAB PO SCH (08:54)
[2020-07-05] MEDS: NON-FORMULARY MEDICATION 1 EA MIS (Lisinopril [Lisinopril] 10 MG) PO SCH (08:55)
[2020-07-05] MEDS: traZODone HCL 50 MG TAB PO SCH (08:55)
[2020-07-05] MEDS: BIFIDOBACTERIUM INFANTIS 4 MG CAP PO SCH (08:56)
[2020-07-05] MEDS: ENOXAPARIN SODIUM 60 MG/0.6 ML SYG SUBCU SCH (08:56)
[2020-07-05] MEDS ORDERED: DIVALPROEX SODIUM ER 250 MG TAB PO ONE (08:58)
[2020-07-05] MEDS: DIVALPROEX SODIUM ER 250 MG TAB PO SCH (08:59)
[2020-07-05] MEDS: NON-FORMULARY MEDICATION 1 EA MIS (Bisoprolol Fumarate [Bisoprolol Fumarate] 5 MG) PO SCH (08:59)
[2020-07-05] MEDS: HYOSCYAMINE SULFATE PO SCH (08:59)
[2020-07-05] MEDS: NICOTINE PATCH 14 MG TD SCH (08:59)
[2020-07-05] MEDS ORDERED: DEXAMETHASONE INJ 10 MG/ML VIAL IV SCH (09:00)
[2020-07-05] MEDS ORDERED: MAGNESIUM SULFATE PREMIX 2GM 2 GM in PREMIX BAG 1 BAG IVPB ONE (12:18)
[2020-07-05 12:42] VITALS: BP 147/83; TEMP 97.9
[2020-07-05] MEDS: REMDESIVIR 100 MG in SODIUM CHLORIDE 0.9% 250ML 250 ML IVPB SCH (12:44)
[2020-07-05] MEDS: ACETAMINOPHEN 325 MG TAB PO PRN (12:44)
[2020-07-05 13:43] VITALS: O2SAT 97
--- NOTE | 2020-07-16 15:14 | DS ---
SUPERVISING PHYSICIAN: Isra Garcia MD ADMISSION DIAGNOSIS: 1. COVID pneumonitis with associated pneumonia. 2. Diarrhea secondary to COVID-19. 3. Mild dehydration secondary to #2. 4. History of chronic migraines on multiple medications. 5. Poorly controlled hypertension. 6. History of prescription medication abuse. 7. Gastroesophageal reflux disease. 8. Anxiety. 9. Nicotine addiction. DISCHARGE DIAGNOSIS: 1. COVID pneumonitis with associated pneumonia. 2. Diarrhea secondary to COVID-19. 3. Mild dehydration secondary to #2. 4. History of chronic migraines on multiple medications. 5. Poorly controlled hypertension. 6. History of prescription medication abuse. 7. Gastroesophageal reflux disease. 8. Anxiety. 9. Nicotine addiction. REASON FOR HOSPITALIZATION: Ms. Murphy is a 65 year-old female patient that presented to the Emergency Room today complaining of a headache, some shortness of breath with a mild cough and some associated diarrhea for the last 5 to 7 days. She is not sure if she has been running a fever. She does not normally require any oxygen, but she does smoke heavily. She actually had a CT done by Dr. Fitzpatrick several days ago that showed some ground glass infiltrates but was not tested for COVID at that time. She has not been on any antibiotics or steroids. She denied any actual blood in her stools. COVID swab showed she was positive. Her swab for Influenza A and B by PCR was negative. Blood cultures were completed and she was started on treatment for COVID pneumonitis with remdesivir, Rocephin, azithromycin and Decadron. Her labs showed she had a low white count of 3,200 with a slight left shift and 3% bands. Her coagulation studies showed her D-dimer was elevated at 2160 with a PT of 17 and PTT of 41.0 with fibrinogen of 409. Chemistries are fairly unremarkable with normal electrolytes, creatinine was at 0.91. BNP was a little elevated at 334, C reactive protein was 9.6. Lipase was within normal limits at 27, amylase was a little elevated at 161. TSH was normal at 1.31. Urinalysis showed a small amount of bilirubin with 3 to 5 RBCs, otherwise within normal limits. Abdominal x-ray was also completed and showed nonobstructive bowel gas pattern with chest x-ray showing some bilateral pulmonary infiltrates consistent with pneumonia. Vital signs showed her initial O2 saturations in the Emergency Room, she was hypoxic with O2 saturation initially in the mid 80s, but she corrected with 2 liters nasal cannula and was maintaining 94%. Her 12-lead EKG showed sinus rhythm but no ST or T wave changes to indicate acute ischemia. She is now going to be admitted for further treatment of pneumonia due to COVID-19 virus with associated diarrhea and some mid dehydration. She was admitted in stable condition. LABORATORY: White count on discharge was 3,600, hemoglobin 12.1, hematocrit 36.8, platelet count 228,000. Differential showed a left shift, but no bands. Coagulation studies showed D-dimer down from 2160 to 1040. Chemistries showed normal electrolytes at discharge with creatinine 0.62. Magnesium 1.6 to 1.9. Calcium 8.0. Troponin less than 0.02. C-reactive protein down to 4.2 from 9.6. TSH and lipase were both normal. Urinalysis showed small amount of bilirubin, 3 to 5 RBCs on microscopic. MICROBIOLOGY: Influenza A and B by PCR was negative. Nasal swab for COVID was positive. Blood cultures remained negative after 5 days. RADIOLOGY: Final chest x-ray on date of discharge showed stable chest with pulmonary infiltrates appearing stable from previous exam on 07/04/20. Please see reports for details. HOSPITAL COURSE: Ms. Murphy was admitted for treatment of COVID pneumonitis and pneumonia. She was started on treatment with Rocephin, azithromycin, remdesivir, Decadron, Protonix, Align and Mucinex. She was given some low fluids due to some dehydration and improved well. She did have Lovenox 1 mg per kg q.12h. due to her elevated D-dimer and unable to perform a CT of the chest due to risk factors. She improved well enough on the day of discharge to continue with outpatient management. Vital signs showed temperature 97.9, pulse 59, blood pressure 147/83, respirations 18, saturation 94-97% on nasal cannula. Ambulation study on day of discharge showed saturation 86% on room air at rest, 90% on 3 liters nasal cannula during exercise and improving to 96% with 2 liters nasal cannula and showing no distress. It was again felt she had responded to treatment well enough to continue with outpatient management. Therefore, she was discharged home. PLAN: Ms. Murphy was discharged on 07/05/20 with instructions to followup with Dr. Fitzpatrick in 7 days and call his office to set up an appointment. Oxygen arrangements were made and she is to wear oxygen as directed with 2 liters nasal cannula. She was to resume her usual diet, increase activity as tolerated and return to the Emergency Room should she have any concerning symptoms. Medications prescribed on discharge included: 1. Decadron 6 mg daily, #8, no refills. 2. Eliquis 5 mg twice daily, #28, no refills. 3. Guaifenesin 600 mg twice daily while on antibiotics. 4. Cefdinir 300 mg twice daily, #14. 5. Albuterol inhaler q.4h. as needed for shortness of breath, #1 inhaler, no refills. CONDITION ON DISCHARGE: Stable and improved. DISPOSITION: The patient was discharged home. #[id number] [facility]
== END 2020-07-05 14:32 | disposition home or self-care (01) | DRG 177 ==
LOC: ER 11:41 → OBSVTOIN 16:13 → UNDOADMOB 16:13 → MS 16:13
PROVIDERS: ADMIT Nurse Practitioner Family; ATTEND Nurse Practitioner Family
PROC: XW033E5 Introduction of Remdesivir Anti-infective into Peripheral Vein, Percutaneous Approach, New Technology Group 5 (ICD-10-PCS; principal; 2020-07-03)
DX: U07.1 COVID-19 (principal); J12.82 Pneumonia due to coronavirus disease 2019; A08.39 Other viral enteritis; E86.0 Dehydration; G43.909 Migraine, unspecified, not intractable, without status migrainosus; I10 Essential (primary) hypertension; K21.9 Gastro-esophageal reflux disease without esophagitis; F41.9 Anxiety disorder, unspecified; F17.210 Nicotine dependence, cigarettes, uncomplicated; Z88.3 Allergy status to other anti-infective agents; Z88.6 Allergy status to analgesic agent; Z88.8 Allergy status to other drugs, medicaments and biological substances; Z91.048 Other nonmedicinal substance allergy status; Z79.891 Long term (current) use of opiate analgesic; Z79.899 Other long term (current) drug therapy